=== PATIENT | female | born 1955 | race Caucasian/White ===

== ENCOUNTER → 2020-07-02 13:59 | Outpatient (CLI) | payer MEDICARE, SELFPAY ==
[2020-07-04 05:55] LABS: COVID19 Sendout Not Detected (Not Detect)
== END ==
PROVIDERS: Visit Provider Physician Assistant
DX: Z01.812 Encounter for preprocedural laboratory examination (principal)
CPT/HCPCS: 87635

== ENCOUNTER 2020-07-05 08:23 | Day surgery (SDC) | payer MEDICARE, MEDICAID, SELFPAY ==
[2020-06-15 12:53] VITALS: BMI 41.7
[2020-07-05] VITALS (22 sets, daily range): BP systolic 90–147; BP diastolic 54–82; PULSE 71–99; RESP 12–22; TEMP 36.2–37.4; O2SAT 93–100; BMI 41.7
--- NOTE | 2020-07-05 | DI.RAD.S_ITS ---
PROCEDURE: XR HIP W PEL IF DONE RT 2V INDICATIONS: post op TECHNIQUE: AP pelvis and lateral view of the right hip acquired. COMPARISON: [facility] Outside Film, RG, PELVIS W/LAT HIP RT, 12/10/2019, 18:12. [facility] [place], CR, XR PELVIS WITH LATERAL HIP RIGHT, 02/29/2020, 16:33. FINDINGS: Bones: Patient is status post right hip arthroplasty, with hardware components in expected positions. The hip joint appears congruent. The visualized bony structures appear intact. Round sclerotic focus 1 cm diameter again noted at the inter trochanteric left hip. This has been stable over time. Soft tissues: Overlying postoperative changes are noted. No suspicious soft tissue densities. IMPRESSION: Normal alignment established after right total hip arthroplasty. A 1 cm sclerotic rounded focus is seen within the inter trochanteric line area of the left hip, present without change on the earliest available comparison study that includes that area dated 12/10/19. Dictated by: Venkat Jeffries M.D. on 07/05/2020 at 15:53 Approved by: Venkat Jeffries M.D. on 07/05/2020 at 15:55
--- NOTE | 2020-07-05 06:00 | DI.RAD.S_ITS ---
PROCEDURE: XR PELVIS 1-2V INDICATIONS: inter op TECHNIQUE: Intra-operative view of the pelvis and hip acquired. COMPARISON: None. FINDINGS: Bones: Intraoperative devices prior to placement of arthroplasty prostheses are in expected positions. No fractures or suspicious bony lesions. Soft tissues: Overlying surgical retractors are present, along with other intraoperative changes. IMPRESSION: Intraoperative evaluation in preparation for placement of the final components of right total hip arthroplasty. Normal alignment. Dictated by: Venkat Jeffries M.D. on 07/05/2020 at 12:27 Approved by: Venkat Jeffries M.D. on 07/05/2020 at 12:28
[2020-07-05] MEDS: PREGABALIN 75 MG CAPSULE PO (09:14)
[2020-07-05] MEDS: ACETAMINOPHEN 325 MG TABLET 975 MG PO (09:14)
[2020-07-05] MEDS: MELOXICAM 7.5 MG TABLET 15 MG PO (09:16)
[2020-07-05] MEDS: LACTATED RINGERS 1,000 ML 42 ML IV ×2 (09:18→12:43)
--- NOTE | 2020-07-05 09:22 | SUR.PREOP ---
Pt and daughter brought back to room 5. PO preop meds given as ordered.
--- NOTE | 2020-07-05 09:50 | SUR.PREOP ---
Dr. Escoto examined patient, aware of red rash and scab to left hip. Pt requested to take her own vistaril PO, OK'd by Dr. Escoto. Given w/sip of water.
--- NOTE | 2020-07-05 09:51 | PM.PREOP ---
Pre-operative Note COVID-19 COVID-19 status: Negative Interval Note History & Physical reviewed/Exam performed by Physician: Yes Changes to H&P: No H&P completed within 30 days and has changed as indicated here:: significant problems with her skin, she notes related to antibiotics and cream treatments
[2020-07-05] MEDS: VANCOMYCIN 1,000 MG/200 ML PIGGYBACK 200 MG IV ×2 (09:52→22:58)
--- NOTE | 2020-07-05 09:52 | PM.OP.1 ---
Operative Date/Time/Diagnoses Date of procedure: 07/05/20 Time of procedure: 10:52 Pre-op diagnosis: Severe right hip osteoarthritis Post-op diagnosis: same Procedure & Clinicians Procedure: right total hip arthroplasty posterior approach Same procedure as scheduled: Yes Indications: The patient has had progressively worsening right hip pain with radiographic changes consistent with arthritis. Non-operative management has failed and the patient has requested total hip replacement. The risks, benefits and alternatives to surgery were discussed with the patient prior to proceeding. Risks discussed included, but were not limited to, failure to relieve pain, leg length discrepancy, dislocation, stiffness, infection, nerve damage, deep venous thrombosis, pulmonary embolism, stroke, coma, heart attack, permanent paralysis and , as well as the potential need for eventual revision of the prosthetic. Surgeon: Fatou Escoto Acquisition Professional: Sonny Rizvi Anesthesia Type: General and Spinal Operative Notes Findings: severe right hip osteoarthritis with marked bone softening, adequate stability Closure Type: primary Specimen(s): none sent Prosthetic devices, grafts, tissues, transplants, or devices: Escoto and Nephew size 52 R3, +0 Oxinium 36 mm head, 1 20 mm screw, size 8 standard anthology Estimated Blood Loss (mL): 250 Blood products transfused: none Procedure in detail: The patient was seen in the pre-operative area, where the patient identified the right hip as the operative site and this was marked with my initials. The patient received pre-operative antibiotics and was taken to the operating room and placed on the operative table in the left lateral decubitus position after satisfactory anesthesia. A multimedia services manager out was performed. The right leg was prepared from the ankle to the iliac crest with ChloroPrep in the usual fashion and draped through sterile drapes. The hip was approached through an approximately 20 cm incision centered over the greater trochanter and curving gently posteriorly as it went proximally. This was carried sharply to the fascia kalie, which was divided and retracted with a self retaining retractor. The trochanteric bursa was excised with care being taken to avoid the sciatic nerve, which was identified and protected throughout the case. The short external rotators were incised and the capsulomuscular flap was raised and tagged for later repair. The hip was dislocated, and a femoral neck osteotomy performed approximately 15 mm above the lesser trochanter. Retractors were placed around the femur. The canal was opened with a box cutting osteotome, followed by a T handled reamer and a lateralizing reamer. The chili pepper broach was then used, followed by sequential broaching until there was good stability of the broach in the femur. Retractors were placed to expose the acetabulum. The labrum and central soft tissues were removed. Reaming was performed initially going up in 2 mm increments, then 1 mm increments until good bite was obtained with an odd sized reamer. The cup 1 mm larger than the last reamer was then inserted using the appropriate anteversion guides. It was further stabilized with a single screw. A trial neutral liner was placed. The broach was placed in the canal. A trial head and neck were then placed and the hip relocated and checked for leg length and stability. An intraoperative film confirmed the component position and no evidence of fracture. The patient was stable in the position of sleep, of squatting, and could be put through a range of motion with 45 degrees internal rotation without dislocation. At 90 degrees flexion, internal rotation to 70 was possible before dislocation. This was felt to be satisfactory and the appropriate components were opened, and the trials were removed. The acetabular liner was impacted into position. The final stem was then impacted into the prepared femoral canal. The hip was meticulously irrigated with normal saline. Finally the femoral head was impacted onto the stem. The acetabulum was cleared of all material and the hip relocated one final time. The capsulomuscular flap was then repaired to the greater trochanter though an awl hole using the tag sutures. The short external rotators were repaired with a nonabsorbable suture. A deep drain was placed and brought out anteriorly. The fascia kalie was closed with Vicryl. The subcutaneous layer was closed with barbed sutures and skin agnieszka. A [place] dressing was applied and the patient was taken to recovery having tolerated the procedure well. Complications: none Post-operative Condition: stable Disposition: Acute Care Plan for aftercare: The patient will be maintained on a standard total hip replacement protocol with weight bearing as tolerated and posterior hip precautions. The patient will receive Aspirin and sequential compression devices for DVT prophylaxis. The patient will be discharged home when safe for the home environment.
[2020-07-05] MEDS: hydrOXYzine pamoate 25 MG CAPSULE 50 MG PO (09:59)
[2020-07-05] MEDS: fentaNYL 100 MCG/2 ML INJ 50 MCG IV (10:26)
--- NOTE | 2020-07-05 10:28 | SUR.PREOP ---
Medicated for pain per Dr. Bell. Put on continuous pulse ox prior to administration. Daughter present at patient's side; has call light.
--- NOTE | 2020-07-05 11:17 | SUR.OPER ---
Lateral on padded OR bed. Gel axillary roll. Arms secured on padded armboard with pillow supporting top arm. Padded hip positioner braces x4 - anterior and posterior chest and pelvis. Additional gel pad used anterior pelvis. Gel pad under bottom leg from knee to foot and secured with tape over sheet.
--- NOTE | 2020-07-05 11:19 | SUR.OPER ---
pt presents with a rash covering her whole body surgeon made aware and said she would like to proceed
[2020-07-05] MEDS: SODIUM CHLORIDE IRRIG SOLUTION 250 ML, POVIDONE-IODINE SPONGE STICKS 1 APPLIC IRR (11:30)
[2020-07-05] MEDS: BUPIVACAINE LIPOSOME 266 MG/20 ML VIAL INJ (11:30)
[2020-07-05] MEDS: BUPIVACAINE 0.25% W/ EPI 30 ML VIAL 60 ML INJ (11:30)
--- NOTE | 2020-07-05 14:13 | SUR.PHASEI ---
assumed care for break relief. Pt aroused easily to voice, denies pain/nausea. Juice given. Resp unlabored. VSS
[2020-07-05] MEDS: diphenhydrAMINE 50 MG/ML VIAL 25 MG IV (14:35)
--- NOTE | 2020-07-05 15:00 | SUR.PHASEI ---
1422 To room 225, bed down and locked, call light within reach, SCDs on. Daughter in the room. Pt VSS, requesting juice. Dressing CDI, hemovac and PHILIPPE intact. No further questions from AC RN.
--- NOTE | 2020-07-05 15:02 | SUR.PHASEI ---
1422 Pt has a dry skin crack at the end of her right great toe.
[2020-07-05] MEDS: ACETAMINOPHEN 325 MG TABLET 650 MG PO ×2 (16:24→20:27)
[2020-07-05] MEDS: OXYCODONE IR 5 MG TABLET 10 MG PO ×2 (16:24→20:28)
[2020-07-05] MEDS: IBUPROFEN 400 MG TABLET PO ×2 (16:25→20:29)
[2020-07-05] MEDS: diphenhydrAMINE 25 MG TABLET 50 MG PO ×2 (16:25→20:27)
[2020-07-05] MEDS: LACTATED RINGERS 1,000 ML 125 ML IV (16:27)
[2020-07-05] MEDS: ONDANSETRON 4 MG/2 ML INJ IV ×2 (16:33→20:29)
[2020-07-05] MEDS: prednisoLONE OPHTH SUSP 1 DROPS EYE-BOTH ×2 (16:36→20:29)
--- NOTE | 2020-07-05 17:50 | PT-OP ANOTE ---
Pt not ready for PT yet. Unable to DF or quad set on R leg yet. Check on pt tomorrow in AM.
[2020-07-05] MEDS: hydrOXYzine pamoate 25 MG CAPSULE PO (18:53)
[2020-07-05] MEDS: GABAPENTIN 100 MG CAPSULE PO (20:27)
[2020-07-05] MEDS: FAMOTIDINE 20 MG TABLET 40 MG PO (20:27)
[2020-07-05] MEDS: ASPIRIN EC 81 MG TABLET PO (20:27)
[2020-07-05] MEDS: DOCUSATE 100 MG CAPSULE PO (20:28)
--- NOTE | 2020-07-05 22:02 | PC.NURSE ---
Evening Shift Note- Admit questions done, medications reviewed, physical assessment and skin check completed. Patient oriented to bed and bed controls, room, lights, phone, menu, and call webster/tv remote. Patient complains of pain at 8/10. PRN oxycodone given as ordered. Patient tolerated without issue. No complaints of N/V. Safety measures in place. Patient agrees to call for assistance. bed alarm activated. Call webster and phone within reach. will continue to monitor.
[2020-07-06] MEDS: LACTATED RINGERS 1,000 ML 125 ML IV (00:35)
[2020-07-06] MEDS: diphenhydrAMINE 25 MG TABLET 50 MG PO ×4 (00:35→12:09)
[2020-07-06] MEDS: IBUPROFEN 400 MG TABLET PO ×4 (00:35→12:09)
[2020-07-06 03:00] VITALS: BP 115/66; PULSE 74; RESP 18; TEMP 37.1; O2SAT 97
[2020-07-06] MEDS: hydrOXYzine pamoate 25 MG CAPSULE PO (04:55)
[2020-07-06] MEDS: OXYCODONE IR 5 MG TABLET 10 MG PO ×3 (04:56→14:39)
[2020-07-06 05:53] LABS: Hematocrit 37.1 % (36-46); Hemoglobin 12.2 g/dL (12.0-16.0)
--- NOTE | 2020-07-06 08:04 | PM.PN.1 ---
Subjective Subjective Date Patient Seen: 07/06/20 Time Patient Seen: 08:04 Interval history: She notes that she is doing well overnight. She did get out of bed with therapy. She has minimal pain in her hip is much better than it was preoperatively. She is taking some oxycodone. Exam Vital Signs (past 8 hours): - 07/06/20 03:00 Temperature 98.7 F Pulse Rate 74 Respiratory Rate 18 Blood Pressure 115/66 Pulse Oximetry 97 Oxygen Delivery Method Room Air Oxygen Flow Rate 0 Narrative Exam Narrative: No pain with range of motion in the right hip calfs are soft bilaterally she is neurologically intact in bilateral lower extremities her dressings in tract and dry. She has a luis dressing on. Objective Labs Result Diagrams: 07/06/20 05:25 Labs: Laboratory Results - last 24 hr 07/06/20 05:25 Hgb 12.2 Hct 37.1 Assessment & Plan Assessment & Plan narrative: Doing well status post total hip arthroplasty. Plan mobilize out of bed with physical therapy. She can be discharged to home as long as she ambulates well physical therapy. Will discontinue her drain an I explained that she needs to leave her luis on until her postop follow-up. Quality VTE Deep Vein Thrombosis/Pulmonary Embolism Present on Admission: No
[2020-07-06 08:10] VITALS: BP 143/65; PULSE 73; RESP 18; TEMP 37.4; O2SAT 99
[2020-07-06 08:40] VITALS: PULSE 77; RESP 16; O2SAT 100
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
[2020-07-06] MEDS: ASPIRIN EC 81 MG TABLET PO (09:49)
[2020-07-06] MEDS: LOSARTAN 50 MG TABLET 100 MG PO (09:49)
[2020-07-06] MEDS: predniSONE 10 MG TABLET PO (09:50)
[2020-07-06] MEDS: ACETAMINOPHEN 325 MG TABLET 650 MG PO (09:50)
[2020-07-06] MEDS: DOCUSATE 100 MG CAPSULE PO (09:50)
[2020-07-06] MEDS: prednisoLONE OPHTH SUSP 1 DROPS EYE-BOTH (09:51)
[2020-07-06] MEDS: CHLORTHALIDONE 25 MG TABLET PO (09:51)
[2020-07-06] MEDS: INFLUENZA VACCINE 0.5 ML SYRINGE IM (10:41)
[2020-07-06 12:00] VITALS: BP 112/68; PULSE 78; RESP 18; TEMP 37.2; O2SAT 99
[2020-07-06] MEDS: ONDANSETRON 4 MG ODT PO (12:08)
--- NOTE | 2020-07-06 13:04 | PT.IIE ---
Current Diagnoses Unilateral primary osteoarthritis, right hip (07/05/20) Surgery Performed Operation Date: 07/05/20 10:45 Actual Procedures p Total Hip Arthroplasty(Right) - Fatou Escoto MD Surgical History (Last Updated 06/15/20 @ 13:28 by Brenda Soriano RN) H/O left wrist surgery (Acute ~2016) History of arthroscopy of both knees (Acute) History of hysterectomy (Acute) History of incision and drainage (Acute 2015) Hx of bilateral cataract extraction (Acute) Hx of cholecystectomy (Acute 09/2019) Hx of eye surgery (Acute 07/2019) Hx of tonsillectomy (Acute) S/P coil embolization of cerebral aneurysm (Acute 11/15/12) Medical History (Last Updated 07/05/20 @ 10:17 by Lynsey Hua RN) Anxiety (Acute) Cerebral aneurysm (Acute) Depression (Acute) Fibromyalgia (Acute) History of MRSA infection (Acute 2015) HTN (hypertension) (Acute) Lupus (Acute) Mini stroke (Acute 2018) Panic attacks (Acute) PTSD (post-traumatic stress disorder) (Acute) TIA (transient ischemic attack) (Acute) Physical Therapy Inpatient Evaluation/Re-Eval M1 PT/OT-IP Prior Functional Status Start: 07/05/20 17:01 Freq: NEEDED Status: Active Protocol: Document 07/06/20 11:34 DE (Rec: 07/06/20 13:01 DE [email or web address]) Medical Review Prior Functional Status Medical History Reviewed Yes Diet/Fluid Consistency Regular Communication WNL. No deficits noted. Able to make needs known. Mobility and Gait Pt amb mod I with 4WW at baseline but hobbles, leans, and limps. Pt has limited community amb d/t hip pain and decreased activity tolerance. Activities of Daily Living and IADL's Pt's daughter, who lives with pt, helps her with most ADLs such as dressing and getting in and out of shower. Prior Functional Level (Other details) Pt has hx of 3 falls within the past 6 months. Pt reports she has difficulty with descending control during stand to sit transfer. Social History Household Members children Living Arrangements House Number of Floors (Floors) Two Floors Number of Stairs To Enter/Railing? 5 [place] in the front with B railing. 3 [place] in the back with L railing up. Pt prefers to go in through the front entrance. Pt will live on the 1st floor only. Home Environment Standard Height Toilet,Tub/ Shower Home Equipment Four Wheel Walker Employment Status Unemployed Additional Social History Comment Pt lives with her daughter and son-in-law. Pt's daughter is looking into buying a shower chair and her TEDDY is going to put a grab bar near toilet and shower next week. M2 PT-IP Current Condition Start: 07/05/20 17:01 Freq: NEEDED Status: Active Protocol: Document 07/06/20 11:34 DE (Rec: 07/06/20 13:01 DE [email or web address]) Physical Therapy Current Condition Current Condition Evaluation Date 07/06/20 Treatment Diagnosis R SCOT (posterior approach); Difficulty with amb Onset Date 07/05/20 Precautions Posterior Hip Precautions No Hip Flexion > 90 degrees,No Hip Internal Rotation,No Hip Adduction Weight Bearing Status Weight Bearing Status Weight Bear as Tolerated M3 PT-IP Subjective Start: 07/05/20 17:01 Freq: NEEDED Status: Active Protocol: Document 07/06/20 11:34 DE (Rec: 07/06/20 13:01 DE [email or web address]) Subjective Physical Therapy Visit Type Type Initial Evaluation Visit Start Time 09:55 Visit Stop Time 10:32 Total Visit Minutes 37 Notes SPT Zion co-ha and supervised by PT Surya the entire session. Number of FEEDLOT MANAGER Visits 0 Physical Therapy Visit Comments Patient Comments I am doing pretty good. Patient Goals To return home. Therapy Pain Assessment Pain When Pain Assessed During Weight Bearing Pain Present Pain Present Pain Reported Location right hip Intensity 7 Scale Used Frank-Mcneal (Faces) Description Aching,Acute Pain Behaviors Calling Out,Facial Grimacing, Guarding,Moaning,Wincing Pain Management Techniques Timing of Activity with Medications M4 PT-IP Mobility and Gait Start: 07/05/20 17:01 Freq: NEEDED Status: Active Protocol: Document 07/06/20 11:34 DE (Rec: 07/06/20 13:01 DE [email or web address]) PT-Transfer Assessment Sit to and From Stand Sit to and from Stand Minimal Assistance,1 Person Assistance,Use of Upper Extremities Equipment Transfer Assistive Device Gait Belt,Front Wheeled Walker Orthotic/Prosthetic Devices or Brace: No Transfers Transfer Destination Chair Transfer Technique Stand Step Pivot Transfer Ability Level of Assist Minimal Assistance,1 Person Assistance,Use of Upper Extremities Comments Mobility Comments Pt was sitting in the chair as PT and SPT arrived. Pt performed sit to stand with FWW and min 1PA. Pt stood up very slowly d/t increased pain in the R hip. Pt demonstrated difficulty with WB through her RLE, which improved as pt walked. Pt amb ~80 feet 1P CGA with 3-point step-to gait pattern with use of FWW. Pt demonstrated decreased stride length and decreased gait speed progressively d/t increased pain. Pt also hyperventilated during amb but was okay after breathing instructions. After amb ~80 feet, pt wanted to sit down d/ t fatigue. Pt sat down on w/c with min 1PA and use of BUE on armrests. With the verbal instructions to control descent, pt was able to have good eccentric control. Pt was wheeled to the stairs. Pt performed stair climbing up and down 3 steps x2 with min 1PA and use of B railing. Pt was instructed to go up leading with the LLE and go down leading with the RLE. Pt c/o significant hip pain and buckled when she was turning around and needed ADMISSIONS GATE ATTENDANT for support. Pt was instructed to take smaller steps in order to prevent internal rotation at the hip. Pt was then wheeled back to the room and transfered to the chair with min 1PA and use of BUE. Call light was placed within reach. Gait Assessment Gait Gait Assistance Required: Contact Guard Assist,1 Person Assist Distance (Feet) 80 Able to Maintain Weight Bearing Status Yes During Gait Assistive Devices Assistive Device Gait Belt,Front Wheeled Walker Gait Deviations General Gait Pattern Antalgic,Decreased Stride Length,Step-to Gait Factors Limiting Gait Function Factors Limiting Gait Function Decreased Activity Tolerance, Decreased Strength,Limited Range of Motion,Pain,Poor Balance,Poor Safety Awareness, Respiratory Distress Comments Gait Comments See mobility comments. Stair Climbing Assessment Evaluation Level of Assist On Stairs Minimal Assistance,1 Person Assistance Devices Stair Climbing Assistive Devices None,Left Railing,Right Railing Technique/Endurance Stair Climbing Direction Ascend and Descend Stair Climbing Technique Step to Step Number of Steps Climbed 3 Query Text: Stair Climbing Set # Repetitions (reps) 2 Comments Stair Climbing Comments See mobility comments. PT-Balance Assessment Sitting Balance and Reactions Static Sitting Balance Ability Normal Dynamic Sitting Balance Ability Normal Standing Balance and Reactions Static Standing Balance Ability Normal Dynamic Standing Balance Ability Good Device Used FWW M5 PT-IP Objective Assessments Start: 07/05/20 17:01 Freq: NEEDED Status: Active Protocol: Document 07/06/20 11:34 DE (Rec: 07/06/20 13:01 DE [email or web address]) Orientation Orientation/Cognition Level of Alertness Alert Orientation Name,Age,Birthday,Month,Date, Year,Day of Week,Place, Situation Language Function Ability No Deficits Noted Safety Awareness Decreased Safety Awareness Memory Description No Deficits Noted Gross Range of Motion Upper Extremity ROM Assessment Within Functional Limits Lower Extremity ROM Assessment Right Impaired Strength Upper Extremity Strength Assessment Within Functional Limits Lower Extremity Strength Assessment Right Impaired Hip 3/5 Knee 4/5 Coordination Assessment Gross Coordination Gross Coordination WNL Sensation Assessment Sensation Gross Sensation WNL Muscle Tone Muscle Tone WNL Yes M6 PT-IP Treatment Start: 07/05/20 17:01 Freq: NEEDED Status: Active Protocol: Document 07/06/20 11:34 DE (Rec: 07/06/20 13:01 DE [email or web address]) Physical Therapy Treatment Exercises Exercises Ankle Pumps,Gluteal Sets,Quad Sets,Heel Slides Education Education Provided Precautions,Weight Bearing Status,Post-Op Packet,Safety M7 PT-IP Assessment and Plan Start: 07/05/20 17:01 Freq: NEEDED Status: Active Protocol: Document 07/06/20 11:34 DE (Rec: 07/06/20 13:01 DE [email or web address]) PT Summary Assessment and Plan Potential Rehabilitation Potential Excellent Status of Condition at Evaluation Stable Summary Impairments Pain,ROM,Strength,Balance,Bed Mobility,Transfers,Gait, Activity Tolerance Assessment Summary This is a low complexity evaluation for 64 yo female s/ p POD1 R SCOT (posterior approach). PLOF= modified independent for household amb with 4WW but limited community amb. Pt needs min assistance from her daughter for most ADLs including dressing and getting in and out of shower. CLOF= pt is able to perform sit<>stand transfer with min 1PA and use of BUE. Pt is also able to amb ~80 ft 1P CGA and FWW but limited distance and speed d/t increased pain and decreased activity tolerance. Pt is also able to perform stair climbing up and down 3 steps x2 with min 1PA and B railing. She did buckle on RLE while turning and needed review of instruction after for avoiding hip IR. Pt's BP in sitting before mobilization was 133/75 and after mobilization was 145/94. Overall, pt laure session well and will be ready for d/c home after PM CG training session with her daughter, along with outpatient PT. Goals Bed Mobility Goal Contact Guard Assistance Transfer Goal Contact Guard Assistance,Front Wheeled Walker,Four Wheeled Walker Gait Goal Contact Guard Assistance,Front Wheel Walker,Four Wheel Walker Gait Distance 100 Other Goals stair climb with B rails with dtr Frequency of Treatment Frequency Of Treatment Twice a Day Treatment Plan Physical Therapy Treatment Plan Bed Mobility Training,Transfer Training,Gait Training, Therapeutic Exercise,Balance Retraining,Post Op Education, Discharge Planning,Hot or Cold Pack,Neuromuscular Re-ed Other Recommendations and Next Treatment review precautions (turns, hip Focus IR) stair climbing mobility with FWW/ 4WW Recommendations To Nursing Amount of Assist Needed 1 Person Assist Discharge Recommendations PT Discharge Recommendations Home with Assistance, Outpatient PT Equipment Needed for Home Before FWW if pt doesnt have it. Discharge family will acquire shower chair, grab bars. Transportation Needs at Discharge Private Vehicle This noted is written by NICO Brown and reviewed and approved by Cristóbal Alexander, PT
--- NOTE | 2020-07-06 15:57 | PT.IPTN ---
Current Diagnoses Unilateral primary osteoarthritis, right hip (07/05/20) Surgery Performed Operation Date: 07/05/20 10:45 Actual Procedures p Total Hip Arthroplasty(Right) - Fatou Escoto MD Physical Therapy Treatment Note M2 PT-IP Current Condition Start: 07/05/20 17:01 Freq: NEEDED Status: Discharge Protocol: Document 07/06/20 11:34 DE (Rec: 07/06/20 13:01 DE [email or web address]) Physical Therapy Current Condition Current Condition Evaluation Date 07/06/20 Treatment Diagnosis R SCOT (posterior approach); Difficulty with amb Onset Date 07/05/20 Precautions Posterior Hip Precautions No Hip Flexion > 90 degrees,No Hip Internal Rotation,No Hip Adduction Weight Bearing Status Weight Bearing Status Weight Bear as Tolerated M3 PT-IP Subjective Start: 07/05/20 17:01 Freq: NEEDED Status: Discharge Protocol: Document 07/06/20 14:56 DE (Rec: 07/06/20 15:56 DE [id number]) Subjective Physical Therapy Visit Type Type Treatment Note Visit Start Time 13:56 Visit Stop Time 14:20 Total Visit Minutes 24 Notes SPT Zion co-tx and supervised by PT Surya. Pt's daughter was present throughout the entire session. Number of MORTARMAN Visits 0 Physical Therapy Visit Comments Patient Comments I want to go home. Patient Goals To return home. Therapy Pain Assessment Pain When Pain Assessed During Weight Bearing Pain Present Pain Present Pain Reported Location right hip Intensity 6 Scale Used Frank-Mcneal (Faces) Description Aching,Acute Pain Behaviors Calling Out,Facial Grimacing, Guarding,Moaning,Wincing Pain Management Techniques Timing of Activity with Medications M4 PT-IP Mobility and Gait Start: 07/05/20 17:01 Freq: NEEDED Status: Discharge Protocol: Document 07/06/20 14:56 DE (Rec: 07/06/20 15:56 DE [id number]) PT-Transfer Assessment Sit to and From Stand Sit to and from Stand Contact Guard Assistance,1 Person Assistance,Use of Upper Extremities Equipment Transfer Assistive Device Gait Belt,Front Wheeled Walker Orthotic/Prosthetic Devices or Brace: No Transfers Transfer Destination Chair Transfer Technique Stand Step Pivot Transfer Ability Level of Assist Contact Guard Assistance,1 Person Assistance,Use of Upper Extremities Comments Mobility Comments Pt was sitting in the chair as PT and SPT arrived. Pt's daughter was also present in the room. Pt performed sit to stand with FWW and CGA. Pt had unequal WB with the majority of the weight through her LLE. Pt amb ~65 ft 1P CGA with step-through gait pattern with use of FWW. Although her gait speed slightly improved from the AM session, pt still had decreased gait speed as well as decreased stride length. After walking ~65 ft, pt was instructed to sit down in w/c and was wheeled to the stairs in order to conserve energy for stair climbing and safe d/ c home. Once pt arrived to the stairs, she stood up from w/c and performed stair climbing up and down 3 steps x2 with min 1PA and B railing. Pt performed the first set with assistance from therapist for demonstration purpose for her daughter. Pt then performed the second set with assistance from her daughter. Caregiver education was provided to lead with L to ascend and lead with R to descend. Pt's daughter was also instructed to support pt's hand with one hand and hold gait belt with the other hand. Pt's daughter was also educated about the potential of knee buckling as well as the posterior hip precautions. After stair climbing, pt was wheeled back to the room and was left in the w/c for d/c with her daughter. Gait Assessment Gait Gait Assistance Required: Contact Guard Assist,1 Person Assist Distance (Feet) 80 Able to Maintain Weight Bearing Status Yes During Gait Assistive Devices Assistive Device Gait Belt,Front Wheeled Walker Gait Deviations General Gait Pattern Antalgic,Decreased Stride Length,Step-to Gait Factors Limiting Gait Function Factors Limiting Gait Function Decreased Activity Tolerance, Decreased Strength,Limited Range of Motion,Pain,Poor Balance,Poor Safety Awareness, Respiratory Distress Comments Gait Comments See mobility comments. Stair Climbing Assessment Evaluation Level of Assist On Stairs Minimal Assistance,1 Person Assistance Devices Stair Climbing Assistive Devices None,Left Railing,Right Railing Technique/Endurance Stair Climbing Direction Ascend and Descend Stair Climbing Technique Step to Step Number of Steps Climbed 3 Stair Climbing Set # Repetitions (reps) 2 Comments Stair Climbing Comments See mobility comments. PT-Balance Assessment Sitting Balance and Reactions Static Sitting Balance Ability Normal Dynamic Sitting Balance Ability Normal Standing Balance and Reactions Static Standing Balance Ability Normal Dynamic Standing Balance Ability Good Device Used FWW M5 PT-IP Objective Assessments Start: 07/05/20 17:01 Freq: NEEDED Status: Discharge Protocol: Document 07/06/20 11:34 DE (Rec: 07/06/20 13:01 DE [email or web address]) Orientation Orientation/Cognition Level of Alertness Alert Orientation Name,Age,Birthday,Month,Date, Year,Day of Week,Place, Situation Language Function Ability No Deficits Noted Safety Awareness Decreased Safety Awareness Memory Description No Deficits Noted Gross Range of Motion Upper Extremity ROM Assessment Within Functional Limits Lower Extremity ROM Assessment Right Impaired Strength Upper Extremity Strength Assessment Within Functional Limits Lower Extremity Strength Assessment Right Impaired Hip 3/5 Knee 4/5 Coordination Assessment Gross Coordination Gross Coordination WNL Sensation Assessment Sensation Gross Sensation WNL Muscle Tone Muscle Tone WNL Yes M6 PT-IP Treatment Start: 07/05/20 17:01 Freq: NEEDED Status: Discharge Protocol: Document 07/06/20 11:34 DE (Rec: 07/06/20 13:01 DE [email or web address]) Physical Therapy Treatment Exercises Exercises Ankle Pumps,Gluteal Sets,Quad Sets,Heel Slides Education Education Provided Precautions,Weight Bearing Status,Post-Op Packet,Safety M7 PT-IP Assessment and Plan Start: 07/05/20 17:01 Freq: NEEDED Status: Discharge Protocol: Document 07/06/20 14:56 DE (Rec: 07/06/20 15:56 DE [id number]) PT Summary Assessment and Plan Potential Rehabilitation Potential Excellent Status of Condition at Evaluation Stable Summary Impairments Pain,ROM,Strength,Balance,Bed Mobility,Transfers,Gait, Activity Tolerance Progress Towards Goals Safe For Discharge Assessment Summary Both pt and pt's daughter responded well to the treatment. Pt was able to perform sit <> stand with CGA and FWW. Pt demonstrated significantly unequal WB during sit to stand and standing. Pt was able to amb ~ 65 ft with CGA and FWW with improvement from the AM session in activity tolerance and gait speed. Pt did not request to sit down but was instructed by therapist in order to conserve energy for stair climbing and d/c. Caregiver training with verbal instruction and visual demonstration was provided to pt's daughter for stair climbing. pt's daughter demonstrated understanding of the instructions and techniques. Pt asked about walking outside at home but was instructed to walk on firm , flat surface for now and slowly progress towards soft, uneven surface. Pt is safe to d/c home with FWW and caregiver assistance. Pt will benefit from outpatient PT to improve her L hip strength and mobility as well as balance in order to be more functionally independent and reduce risk for falls. Goals Bed Mobility Goal Contact Guard Assistance Transfer Goal Contact Guard Assistance,Front Wheeled Walker,Four Wheeled Walker Gait Goal Contact Guard Assistance,Front Wheel Walker,Four Wheel Walker Gait Distance 100 Other Goals stair climb with B rails with dtr Frequency of Treatment Frequency Of Treatment Twice a Day Treatment Plan Physical Therapy Treatment Plan Bed Mobility Training,Transfer Training,Gait Training, Therapeutic Exercise,Balance Retraining,Post Op Education, Discharge Planning,Hot or Cold Pack,Neuromuscular Re-ed Other Recommendations and Next Treatment review precautions (turns, hip Focus IR) stair climbing mobility with FWW/ 4WW Recommendations To Nursing Amount of Assist Needed 1 Person Assist Discharge Recommendations PT Discharge Recommendations Home with Assistance, Outpatient PT Other Discharge Recommendations Pt was recommended to use FWW instead of 4WW at home for better stability. Equipment Needed for Home Before Pt reports she has FWW at home Discharge as well. family will acquire shower chair, grab bars. Transportation Needs at Discharge Private Vehicle
== END 2020-07-06 14:46 | disposition home or self-care (01) ==
LOC: OR 08:29 → AC 08:30
PROVIDERS: Referring Provider Orthopaedic Surgery; Visit Provider Orthopaedic Surgery
PROC: 0SR90JZ Replacement of Right Hip Joint with Synthetic Substitute, Open Approach (ICD-10-PCS; CPT 27130; principal; 2020-07-05 10:45)
DX: M16.11 Unilateral primary osteoarthritis, right hip (principal); F41.9 Anxiety disorder, unspecified; F32.9 Major depressive disorder, single episode, unspecified; I10 Essential (primary) hypertension; Z86.73 Personal history of transient ischemic attack (TIA), and cerebral infarction without residual deficits
CPT/HCPCS: 27130; 36415; 72170; 73502; 85014; 85018; 90471; 90656; 94760; 94762; 97116; 97161; 97530; C1776; A9270; C9290; J1100; J1200; J2250; J2274; J2405; J2704; J3010; Q2038

== ENCOUNTER 2020-08-09 14:21 | Inpatient (IN) | payer MEDICARE, MEDICAID, SELFPAY ==
[2020-07-05 15:54] VITALS: BMI 41.7
[2020-08-09] VITALS (10 sets, daily range): BP systolic 124–160; BP diastolic 59–104; PULSE 82–94; RESP 24; TEMP 36.6–38.1; O2SAT 95–100; BMI 39.6
[2020-08-09 14:59] LABS: Add Manual Diff / Slide Review NO; Basophils Absolute Auto 0 /uL (0-100); Basophils Percent Auto 0.3 % (0-2); Eosinophils Absolute Auto 300 /uL (0-450); Hematocrit 40.7 % (36-46); Hemoglobin 13.7 g/dL (12.0-16.0); Lymphocytes Absolute Auto 3000 /uL (1100-4500); Mean Corpuscular HGB Conc 33.7 % (30-36); Mean Corpuscular Hemoglobin 27.8 PG (26-34); Mean Corpuscular Volume 82.6 fL (80-100); Monocytes Absolute Auto 2100 /uL (0-900); Monocytes Percent Auto 13.3 % (3-14); Neutrophils Absolute Auto 10300 /uL (1500-7000); Neutrophils Percent Auto 65.4 % (50-75); Platelet Count 217 X10^3/uL (150-400); Red Blood Cell Count 4.93 X10^6/uL (4.0-5.2); Red Cell Distribution Width 13.3 % (11.6-14.8); White Blood Cell Count 15.7 X10^3/uL (4.5-11.0)
--- NOTE | 2020-08-09 15:03 | ED_ITS ---
HPI - General Adult General Chief complaint: Nausea/Vomiting/Diarrhea Stated complaint: UNABLE TO EAT NOT ABLE TO KEEP THINGS DOWN Time Seen by Provider: 08/09/20 14:45 Source: patient Mode of arrival: Ambulatory Limitations: no limitations History of Present Illness HPI narrative: 65-year-old female who 1 month ago underwent a right total hip arthroplasty who over the past several days/weeks has had increase in fatigue and weakness and malaise and body aches and chills. She was tested for COVID-19 and it was negative. Saw her orthopedic surgeon yesterday had the agnieszka removed from her right hip and was concerned for an infection. I received a call from her orthopedic surgeon earlier today stating that she was directing the patient come to the emergency department and requesting x-ray and labs to evaluate for other potential sources of an infection as there was concern about a potential periprosthetic infection. Upon arrival patient states she generally does not feel very well. Has had nausea no vomiting. No change of bowel habits. Does have some dysuria with dark colored urine. Does report fevers at home. No chest pain or shortness of breath. Related Data Home Medications Medication Instructions Recorded Confirmed albuterol sulfate 2 puff INHALATION Q4-6H PRN 06/15/20 07/05/20 chlorthalidone 25 mg PO DAILY 06/15/20 07/05/20 famotidine 40 mg PO BEDTIME 06/15/20 07/05/20 gabapentin 100 mg PO BEDTIME PRN 06/15/20 07/05/20 hydroxyzine HCl 50 mg PO TID PRN 06/15/20 07/05/20 ibuprofen 400 mg PO QID PRN 06/15/20 07/05/20 losartan 100 mg PO DAILY 06/15/20 07/05/20 prednisolone acetate 1 drp EYE-BOTH TID 06/15/20 07/05/20 prednisone 10 mg PO DAILY 06/15/20 07/05/20 diphenhydramine HCl 50 mg PO QID PRN 07/05/20 07/05/20 Previous Rx's Medication Instructions Recorded acetaminophen 650 mg PO TID #20 tab 07/06/20 aspirin 81 mg PO BID #30 tab 07/06/20 docusate sodium [DOK] 100 mg PO BID #30 cap 07/06/20 oxycodone 5 mg PO Q4-6H PRN #40 tab 07/06/20 Allergies Allergy/AdvReac Type Severity Reaction Status Date / Time Every antibiotic except Allergy Severe Lips turn Uncoded 07/05/20 09:28 Vancomycin blue/swell, I can't breathe, long-term rash Review of Systems Constitutional Constitutional: Reports body ache(s), Reports chills, Reports fatigue, Reports fever(s), Reports lethargy and Reports malaise Cardiovascular Cardiovascular: Denies chest pain and Denies dyspnea Respiratory Respiratory: Denies dyspnea Gastrointestinal Gastrointestinal: Denies change in bowel habits, Reports nausea and Denies vomiting Genitourinary Genitourinary: Reports dysuria Genitourinary: Reports dysuria Comments: Dark colored urine Musculoskeletal Musculoskeletal: Denies arthralgias and Denies myalgias Integumentary/Breasts Skin/Breast: Denies rash Neurologic Neurologic: Denies behavioral changes Psychiatric Psychiatric: Denies behavioral changes Endocrine Endocrine: Reports fatigue Hematologic/Lymphatic Hematologic/Lymphatic: Denies easy bleeding and Denies easy bruising Allergic/Immunologic Allergic/Immunologic: Denies urticaria Patient History Medical History Anxiety Cerebral aneurysm Depression Fibromyalgia History of MRSA infection (2015) HTN (hypertension) Lupus Mini stroke (2017) Panic attacks PTSD (post-traumatic stress disorder) TIA (transient ischemic attack) Surgical History (Updated 06/15/20 @ 13:28 by Brenda Soriano RN) H/O left wrist surgery (~2015) History of arthroscopy of both knees History of hysterectomy History of incision and drainage (2015) Hx of bilateral cataract extraction Hx of cholecystectomy (09/2019) Hx of eye surgery (07/2019) Hx of tonsillectomy S/P coil embolization of cerebral aneurysm (11/15/12) Social History household members: children Smoking Status: Former smoker alcohol intake: current Smoking Status: Former smoker alcohol intake frequency: a few times a month Substance Use Type: does not use Exam Initial Vital Signs Initial Vital Signs: Vital Signs Pulse Rate 91 H 08/09/20 15:04 Pulse Oximetry 98 08/09/20 15:04 Const General: ill appearing Limitations: mental status not altered HENMT Head: normal to inspection and normocephalic Resp Effort & Inspection: normal respiratory effort Auscultation: clear to auscultation bilaterally Cardio Rate: regular rate Rhythm: regular rhythm GI Inspection: non-distended Palpation: soft Skin Other: Well-healed surgical scar right hip Neuro General: patient alert, patient awake and patient oriented x3 Cognition: normal cognition Speech: speech normal Extrem General: normal to inspection and capillary refill normal Psych Appearance: grossly normal and well kempt Scores GCS [place] coma scale eye opening: Spontaneous Omega coma scale verbal response: Orientated Omega coma scale motor response: Obey commands [place] coma scale total score: 15 Course Orders Ordered: ED Orders 08/09/20 14:42 C-Reactive Protein Quant Stat Complete Blood Count AUTO DIFF Stat Comprehensive Metabolic Panel Stat Erythrocyte Sedimentation Rate Stat Lactate (Lactic Acid) Stat Lipase Stat Procalcitonin Stat 08/09/20 15:01 XR hip w pel if done RT 2V Stat 08/09/20 15:42 Blood Culture Stat 08/09/20 16:21 COVID19 Stat 08/09/20 16:23 Consult to Orthopedic Surgery Stat 08/09/20 17:14 Body Fluid Culture Stat Sodium Chloride (Normal Saline 0.9%) 1,000 mls @ 125 mls/hr IV CONT GIBRAN Last Infusion: 08/09/20 16:57 Dose: 1,000 mls/hr Documented by: Admin: 08/09/20 15:29 Dose: 125 mls/hr Documented by: MAGED Discontinued Medications Acetaminophen (Acetaminophen 325 Mg Tablet) 650 mg PO NOW ONE Stop: 08/09/20 15:02 Last Admin: 08/09/20 15:28 Dose: 650 mg Documented by: MAGED Vancomycin HCl (Vancomycin) 1,000 mg in 200 mls @ 200 mls/hr IV NOW ONE Stop: 08/09/20 16:09 Last Infusion: 08/09/20 16:58 Dose: 0 mls/hr Documented by: Admin: 08/09/20 15:29 Dose: 200 mls/hr Documented by: MAGED Ondansetron HCl (Ondansetron 4 Mg/2 Ml Inj) 4 mg IV NOW ONE Stop: 08/09/20 15:02 Last Admin: 08/09/20 15:28 Dose: 4 mg Documented by: MAGED Vital Signs Vital signs: Vital Signs - 8 hr 08/09/20 15:04 08/09/20 15:30 08/09/20 15:44 Temperature 97.9 F Pulse Rate 91 H 94 H Blood Pressure 160/104 H Pulse Oximetry 98 96 08/09/20 16:00 08/09/20 16:30 08/09/20 16:36 Temperature Pulse Rate 92 H 87 89 Blood Pressure 126/60 Pulse Oximetry 96 95 96 08/09/20 17:00 Temperature Pulse Rate 86 Blood Pressure 124/59 L Pulse Oximetry 96 Medical Decision Making Medical Records Medical records reviewed: Yes I reviewed the patient's medical records. Lab Data Lab results reviewed: Yes I reviewed the patient's lab results. Result diagrams: 08/09/20 14:42 08/09/20 14:42 Labs: Lab Results 08/09/20 08/09/20 08/09/20 Range/Units 14:42 14:42 14:42 WBC 15.7 H (4.5-11.0) X10^3/uL RBC 4.93 (4.0-5.2) X10^6/uL Hgb 13.7 (12.0-16.0) g/dL Hct 40.7 (36-46) % MCV 82.6 (80-100) fL MCH 27.8 (26-34) PG MCHC 33.7 (30-36) % RDW 13.3 (11.6-14.8) % Plt Count 217 (150-400) X10^3/uL Neut % (Auto) 65.4 (50-75) % Lymph % (Auto) 19.0 L (25-40) % [place] % (Auto) 13.3 (3-14) % Eos % (Auto) 2.0 (2-4) % Baso % (Auto) 0.3 (0-2) % Neut # (Auto) 05876 H (5291-4940) /uL Lymph # (Auto) 3000 (0471-3618) /uL [place] # (Auto) 2100 H (0-900) /uL Eos # (Auto) 300 (0-450) /uL Baso # (Auto) 0 (0-100) /uL ESR 26 H (0-20) MM/HR Sodium 134 L (137-145) mmol/L Potassium 3.4 (3.4-5.1) mmol/L Chloride 102 (98-107) mmol/L Carbon Dioxide 28 (22-32) mmol/L BUN 14 (7-17) mg/dL Creatinine 0.84 (0.52-1.04) mg/dL Estimated GFR > 60.0 (>60) mL/min BUN/Creatinine Ratio 16.7 (6-22) Glucose 118 H (80-110) mg/dL Lactate (0.7-2.1) mmol/L Calcium 9.3 (8.4-10.2) mg/dL Total Bilirubin 1.1 (0.2-1.3) mg/dL AST 26 (14-36) IU/L ALT 14 (<35) IU/L Alkaline Phosphatase 96 (38-126) U/L C-Reactive Protein 4.6 H (<1.0) mg/dL Total Protein 8.1 (6.3-8.2) g/dL Albumin 3.8 (3.5-5.0) g/dL Globulin 4.3 H (1.7-4.1) g/dL Albumin/Globulin Ratio 0.9 L (1.0-2.8) Lipase 152 (23-300) U/L Procalcitonin 0.07 (<0.5) ng/mL COVID-19 PCR (Negative) 08/09/20 08/09/20 Range/Units 14:42 16:21 WBC (4.5-11.0) X10^3/uL RBC (4.0-5.2) X10^6/uL Hgb (12.0-16.0) g/dL Hct (36-46) % MCV (80-100) fL MCH (26-34) PG MCHC (30-36) % RDW (11.6-14.8) % Plt Count (150-400) X10^3/uL Neut % (Auto) (50-75) % Lymph % (Auto) (25-40) % [place] % (Auto) (3-14) % Eos % (Auto) (2-4) % Baso % (Auto) (0-2) % Neut # (Auto) (2035-8835) /uL Lymph # (Auto) (4038-4553) /uL [place] # (Auto) (0-900) /uL Eos # (Auto) (0-450) /uL Baso # (Auto) (0-100) /uL ESR (0-20) MM/HR Sodium (137-145) mmol/L Potassium (3.4-5.1) mmol/L Chloride (98-107) mmol/L Carbon Dioxide (22-32) mmol/L BUN (7-17) mg/dL Creatinine (0.52-1.04) mg/dL Estimated GFR (>60) mL/min BUN/Creatinine Ratio (6-22) Glucose (80-110) mg/dL Lactate 1.4 (0.7-2.1) mmol/L Calcium (8.4-10.2) mg/dL Total Bilirubin (0.2-1.3) mg/dL AST (14-36) IU/L ALT (<35) IU/L Alkaline Phosphatase (38-126) U/L C-Reactive Protein (<1.0) mg/dL Total Protein (6.3-8.2) g/dL Albumin (3.5-5.0) g/dL Globulin (1.7-4.1) g/dL Albumin/Globulin Ratio (1.0-2.8) Lipase (23-300) U/L Procalcitonin (<0.5) ng/mL COVID-19 PCR Negative (Negative) Imaging Data Extremity x-ray #1: Radiologist's Impression: [address] [id number] ReportSigned Patient: Fany Swartz [facility]#: [id number]: 5Acct:[id number]/Sex: 65 / FDate of Service: 08/09/20Loc: EDAccession Number: [id number] Procedure: XR hip w pel if done RT 2V Ordering Provider: Chance Perez D.O. PROCEDURE: XR HIP W PEL IF DONE RT 2V INDICATIONS: requested by ortho concern for infection TECHNIQUE: AP pelvis with lateral view(s) of the right hip(s). [facility], 07/[facility]/2020, 13:01. FINDINGS: Bones: No fractures or dislocations. Pelvic ring appears intact. No matthias picious bony lesions. Prior right total hip arthroplasty Soft tissues: The visualized bowel gas pattern is normal. No suspicious soft tissue calcifications. IMPRESSION: No evidence of device loosening or disruption, no sign of infection involving the arthroplasty. Dictated by: Venkat Jeffries M.D. on 08/09/2020 at 15:30 Approved by: Venkat Jeffries M.D. on 08/09/2020 at 15:31 [facility] Narrative Medical decision making narrative: Patient does have a leukocytosis and also an elevated ESR and CRP. The x-ray shows no acute issues with regard to the prosthesis. I did discuss the case with Dr. Escoto with orthopedics who recommended the patient be admitted. Patient has had multiple issues with antibiotics in the past so she was given vancomycin here in the ER. I also discussed the case with Dr. cordoba who will admit for further evaluation and treatment. We are still waiting for a urinalysis at the time of admission. Cultures have been obtained. Discussed admission with the patient. She expressed understanding and agreement. Discharge Plan Departure Patient Disposition: Admitted As Inpatient Clinical Impression: Post-operative infection Qualifiers: Encounter type: initial encounter Postoperative infection type: unspecified type Qualified Code(s): T81.40XA - Infection following a procedure, unspecified, initial encounter Admit Date/Time: 08/09/20 17:25 Admit Provider: Tammy Cordoba
[2020-08-09 15:13] LABS: Lactate (Lactic Acid) 1.4 mmol/L (0.7-2.1)
[2020-08-09 15:15] LABS: Alanine Aminotransferase 14 IU/L (<35); Albumin 3.8 g/dL (3.5-5.0); Albumin Globulin Ratio 0.9 (1.0-2.8); Alkaline Phosphatase 96 U/L (38-126); Aspartate Aminotransferase 26 IU/L (14-36); BUN Creatinine Ratio 16.7 (6-22); Bilirubin Total 1.1 mg/dL (0.2-1.3); Blood Urea Nitrogen 14 mg/dL (7-17); C-Reactive Protein Quant 4.6 mg/dL (<1.0); Calcium 9.3 mg/dL (8.4-10.2); Carbon Dioxide 28 mmol/L (22-32); Chloride 102 mmol/L (98-107); Estimated Glomerular Filt Rate > 60.0 mL/min (>60); Globulin 4.3 g/dL (1.7-4.1); Glucose 118 mg/dL (80-110); HEMOLYSIS < 15 (0-50); Lipase 152 U/L (23-300); Potassium 3.4 mmol/L (3.4-5.1); Sodium 134 mmol/L (137-145); Total Protein 8.1 g/dL (6.3-8.2)
[2020-08-09 15:23] LABS: Erythrocyte Sedimentation Rate 26 MM/HR (0-20)
[2020-08-09] MEDS: ACETAMINOPHEN 325 MG TABLET 650 MG PO ×2 (15:28→21:16)
[2020-08-09] MEDS: ONDANSETRON 4 MG/2 ML INJ IV ×2 (15:28→20:18)
[2020-08-09] MEDS: VANCOMYCIN 1,000 MG/200 ML PIGGYBACK 200 MG IV (15:29)
[2020-08-09] MEDS: SODIUM CHLORIDE 0.9% 1,000 ML 125 ML IV (15:29)
[2020-08-09 15:35] LABS: Procalcitonin 0.07 ng/mL (<0.5)
[2020-08-09 16:43] LABS: COVID19 -Nasal RAPID Negative (Negative)
--- NOTE | 2020-08-09 16:57 | PC.NURSE ---
Per doctor Perez, fluids increased to 1,000 ml/hr.
--- NOTE | 2020-08-09 19:05 | P.HP_ITS ---
History of Present Illness History of Present Illness Date Patient Seen: 08/09/20 Time Patient Seen: 18:06 Chief complaint: UNABLE TO EAT NOT ABLE TO KEEP THINGS DOWN Narrative: This is a complex 65-year-old who had a right total hip arthroplasty done back 07/05/2020. She was seen for 1 postoperative appointment and was having some thigh pain. A CT scan was obtained which did not show evidence of a right femoral fracture. She then was unable to keep her clinic appointments because she was not feeling well with some problems with nausea and vomiting. She has also had some issues with fevers. She was sent for COVID testing which was negative. She also was evaluated at [facility] and said she had difficulty getting care because of the COVID crisis. She was seen yesterday for staple removal and she was noting to have continued problems with nausea vomiting and keeping things down. She was contacted today in because she was having difficulty we referred her to [facility] Emergency Room. She continues to note ongoing difficulty with malaise, fevers, nausea, headaches some mild increased right hip pain. Patient History Medical History Anxiety Cerebral aneurysm Depression Fibromyalgia History of MRSA infection (2015) HTN (hypertension) Lupus Mini stroke (2018) Panic attacks PTSD (post-traumatic stress disorder) TIA (transient ischemic attack) Surgical History H/O left wrist surgery (~2015) History of arthroscopy of both knees History of hysterectomy History of incision and drainage (2015) Hx of bilateral cataract extraction Hx of cholecystectomy (09/2019) Hx of eye surgery (07/2019) Hx of tonsillectomy S/P coil embolization of cerebral aneurysm (11/15/12) Family & Social History Social History: household members children Prior Living Arrangements House Safety & Behavioral: Feels Safe in Current Yes Environment Been Physically Hurt or No Threatened By a Person Suicidal Ideation Description None Suicide Plan Description No Plan Tobacco & Substance use: Smoking Status Former smoker alcohol intake current alcohol intake frequency a few times a month Substance Use Type does not use Meds Home Medications and Allergies Home Medications Medication Instructions Recorded Confirmed Type albuterol sulfate 2 puff INHALATION Q4-6H PRN 06/15/20 07/05/20 History chlorthalidone 25 mg PO DAILY 06/15/20 07/05/20 History famotidine 40 mg PO BEDTIME 06/15/20 07/05/20 History gabapentin 100 mg PO BEDTIME PRN 06/15/20 07/05/20 History hydroxyzine HCl 50 mg PO TID PRN 06/15/20 07/05/20 History ibuprofen 400 mg PO QID PRN 06/15/20 07/05/20 History losartan 100 mg PO DAILY 06/15/20 07/05/20 History prednisolone acetate 1 drp EYE-BOTH TID 06/15/20 07/05/20 History prednisone 10 mg PO DAILY 06/15/20 07/05/20 History diphenhydramine HCl 50 mg PO QID PRN 07/05/20 07/05/20 History acetaminophen 650 mg PO TID #20 tab 07/06/20 Rx aspirin 81 mg PO BID #30 tab 07/06/20 Rx docusate sodium [DOK] 100 mg PO BID #30 cap 07/06/20 Rx oxycodone 5 mg PO Q4-6H PRN #40 tab 07/06/20 Rx Allergies Allergy/AdvReac Type Severity Reaction Status Date / Time Every antibiotic except Allergy Severe Lips turn Uncoded 07/05/20 09:28 Vancomycin blue/swell, I can't breathe, long-term rash Review of Systems Review of Systems Narrative: See above, some urinary issues, fevers, chills, malaise, anorexia, nausea, vomiting, lightheadedness, headaches Exam Vital Signs (past 8 hours): - 08/09/20 15:04 08/09/20 15:30 08/09/20 15:44 Temperature 97.9 F Pulse Rate 91 H 94 H Blood Pressure 160/104 H Pulse Oximetry 98 96 08/09/20 16:00 08/09/20 16:30 08/09/20 16:36 Temperature Pulse Rate 92 H 87 89 Blood Pressure 126/60 Pulse Oximetry 96 95 96 08/09/20 17:00 Temperature Pulse Rate 86 Blood Pressure 124/59 L Pulse Oximetry 96 Narrative Exam Narrative: She appears to be distressed, she is calm but she is warm and mildly diaphoretic. HEENT is benign, abdomen slightly distended but no rebound tenderness, right hip wound has decreased erythema in comparison to previously and appears to be healing with no active drainage, fairly mild pain with right gentle range of motion in the right hip, neurologically intact distally, ad equate capillary refill distally and palpable pulses, multiple skin abnormalities rash and abnormalities Objective Labs Result Diagrams: 08/09/20 14:42 08/09/20 14:42 Labs: Laboratory Results - last 24 hr 08/09/20 08/09/20 08/09/20 14:42 14:42 14:42 WBC 15.7 H RBC 4.93 Hgb 13.7 Hct 40.7 MCV 82.6 MCH 27.8 MCHC 33.7 RDW 13.3 Plt Count 217 Neut % (Auto) 65.4 Lymph % (Auto) 19.0 L [place] % (Auto) 13.3 Eos % (Auto) 2.0 Baso % (Auto) 0.3 Neut # (Auto) 03466 H Lymph # (Auto) 3000 [place] # (Auto) 2100 H Eos # (Auto) 300 Baso # (Auto) 0 ESR 26 H Sodium 134 L Potassium 3.4 Chloride 102 Carbon Dioxide 28 BUN 14 Creatinine 0.84 Estimated GFR > 60.0 BUN/Creatinine Ratio 16.7 Glucose 118 H Lactate Calcium 9.3 Total Bilirubin 1.1 AST 26 ALT 14 Alkaline Phosphatase 96 C-Reactive Protein 4.6 H Total Protein 8.1 Albumin 3.8 Globulin 4.3 H Albumin/Globulin Ratio 0.9 L Lipase 152 Procalcitonin 0.07 COVID-19 PCR 08/09/20 08/09/20 14:42 16:21 WBC RBC Hgb Hct MCV MCH MCHC RDW Plt Count Neut % (Auto) Lymph % (Auto) [place] % (Auto) Eos % (Auto) Baso % (Auto) Neut # (Auto) Lymph # (Auto) [place] # (Auto) Eos # (Auto) Baso # (Auto) ESR Sodium Potassium Chloride Carbon Dioxide BUN Creatinine Estimated GFR BUN/Creatinine Ratio Glucose Lactate 1.4 Calcium Total Bilirubin AST ALT Alkaline Phosphatase C-Reactive Protein Total Protein Albumin Globulin Albumin/Globulin Ratio Lipase Procalcitonin COVID-19 PCR Negative Assessment & Plan Assessment & Plan narrative: Right hip mild cellulitis but very concerning because of fevers and chills recent right total hip arthroplasty and elevated white blood cell count. I have recommended an aspiration of her right hip wound. Her right hip was prepped with ChloraPrep and then a 22 gauge spinal n eedle was carefully inserted along the skin incision down into the subcutaneous tissues and deep less than 1 cc of bloody fluid was carefully aspirated. It was sent for Gram stain culture and sensitivity. I think she does appear to be ill with likely an infection. Her urinalysis is currently pending. She is having difficulty keeping things down and likely is somewhat dehydrated. Think she nee ds to be admitted to the the hospital. She may have an underlying right hip periprosthetic infection. She is very antibiotic intolerant with what sounds like Juan Daniel Maurizio's type reactions in the past. I discussed her case with Dr. webster and I think it is reasonable for her to get started on vancomycin pending cultures. She may require irrigation and debridement of her right hip and polyethylene exchange.
[2020-08-09] MEDS: MORPHINE 2 MG/ML INJ IV (20:18)
[2020-08-09] MEDS: SODIUM CHLORIDE 0.9% 1,000 ML 100 ML IV (20:18)
[2020-08-09 20:19] LABS: Magnesium 1.9 mg/dL (1.6-2.3)
[2020-08-09 20:48] LABS: Bacteria Urine Few (2-10); Mucus Urine 1+ (Negative); RBC Urine 0-1/HPF (0-5/HPF); Squamous Epithelial Cell Urine 1-5 /HPF (0-5/HPF); WBC Urine 5-10/HPF (0-5/HPF)
[2020-08-09 20:49] LABS: Culture Indicated Urine Specimen Cultured
--- NOTE | 2020-08-09 20:58 | P.HP_ITS ---
History of Present Illness History of Present Illness Date Patient Seen: 08/09/20 Time Patient Seen: 20:00 Chief complaint: Cannot eat, fevers, s/p right total hip arthroplas Narrative: Fany Swartz is a pleasant 65 y.o. female status post right total hip arthopl asty on 07/05/[address] Fatou Escoto who presented today with fevers and inability to eat for 2 weeks. She states that she is unable to keep anything down, she either vomits her food back up or has diarrhea. She does not know what her vomitus looks like however she states that her diarrhea is mustard colored. She vomits at least once daily, urine is orange but no burning or blood seen. Denies chest pain, shortness of breath, has abdominal cramping associated with vomiting, has mild mid lateral thigh pain distal to the hip incision site. 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 She is from [facility] however was trying to get set up at the [facility]. She states that this started about 2 weeks ago and had a follow-up with Dr. Escoto and due to her fevers was instructed to have a COVID test done. She was able to go to that office yesterday to rule remove the agnieszka from her right hip. She has had fevers as well, generally 100 degrees. The patient is allergic to all antibiotic medications with exception of vancomycin. 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 Patient was tested for COVID -19 presurgically on July 02 and again today in the ED. She states that her community has not been hit with COVID-19 until this past week when a friend of her daughters apparently came down with COVID- 19. The patient's COVID-19 test done today was the rapid test. She was administered IV Vancomycin 1 gram in the ED. Right hip x-ray done while in the ED was unremarkable. Patient's temperature is 100.5 degree, blood pressure 142/72, heart rate 82, respiratory rate 24, oxygen saturation 100% on room air, she weighs 98.5 kg with a BMI of 39.6. She does have an elevated white count of 15.7 with a left shift and neutrophil count of 10,300, she also is lymphopenic at 19%, ESR is elevated at 26, sodium 134, glucose 118, CRP was elevated at 4.6, urine WBC was elevated at 5 to 10 high-powered field, few bacteria, and mucus. It did meet criteria for culture. Initial COVID-19 test was negative Patient History Medical History (Updated 08/09/20 @ 21:05 by [facility] Trevino) Anxiety Cerebral aneurysm Depression Fibromyalgia History of MRSA infection (2015) HTN (hypertension) Lupus Mini stroke (2018) Panic attacks PTSD (post-traumatic stress disorder) Shaw-Maurizio syndrome TIA (transient ischemic attack) Surgical History (Updated 08/09/20 @ 22:37 by [facility] Trevino) H/O left wrist surgery (~2015) History of arthroscopy of both knees History of hysterectomy History of incision and drainage (2015) History of total right hip arthroplasty Hx of bilateral cataract extraction Hx of cholecystectomy (09/2019) Hx of eye surgery (07/2019) Hx of tonsillectomy S/P coil embolization of cerebral aneurysm (11/15/12) Family & Social History Family History Father Leukemia Mother Ovarian cancer Social History: household members Adult children Prior Living Arrangements House Safety & Behavioral: Feels Safe in Current Yes Environment Been Physically Hurt or No Threatened By a Person Suicidal Ideation Description None Suicide Plan Description No Plan Tobacco & Substance use: Smoking Status Former smoker alcohol intake current alcohol intake frequency a few times a month Substance Use Type does not use Meds Home Medications and Allergies Home Medications Medication Instructions Recorded Confirmed Type albuterol sulfate 2 puff INHALATION Q4-6H PRN 06/15/20 08/09/20 History chlorthalidone 25 mg PO DAILY 06/15/20 08/09/20 History famotidine 40 mg PO BEDTIME 06/15/20 08/09/20 History gabapentin 100 mg PO BEDTIME PRN 06/15/20 08/09/20 History hydroxyzine HCl 50 mg PO TID PRN 06/15/20 08/09/20 History ibuprofen 400 mg PO QID PRN 06/15/20 08/09/20 History losartan 100 mg PO DAILY 06/15/20 08/09/20 History prednisolone acetate 1 drp EYE-BOTH TID 06/15/20 08/09/20 History prednisone 10 mg PO DAILY 06/15/20 08/09/20 History diphenhydramine HCl 50 mg PO QID PRN 07/05/20 08/09/20 History acetaminophen 650 mg PO TID #20 tab 07/06/20 08/09/20 Rx aspirin 81 mg PO BID #30 tab 07/06/20 08/09/20 Rx docusate sodium [DOK] 100 mg PO BID #30 cap 07/06/20 08/09/20 Rx oxycodone 5 mg PO Q4-6H PRN #40 tab 07/06/20 08/09/20 Rx Allergies Allergy/AdvReac Type Severity Reaction Status Date / Time Every antibiotic except Allergy Severe Lips turn Uncoded 07/05/20 09:28 Vancomycin blue/swell, I can't breathe, long-term rash Review of Systems Review of Systems ROS: Yes All systems reviewed with the patient and are negative except as otherwise documented Exam Vital Signs (past 8 hours): - 08/09/20 15:04 08/09/20 15:30 08/09/20 15:44 Temperature 97.9 F Pulse Rate 91 H 94 H Respiratory Rate Blood Pressure 160/104 H Pulse Oximetry 98 96 08/09/20 16:00 08/09/20 16:30 08/09/20 16:36 Temperature Pulse Rate 92 H 87 89 Respiratory Rate Blood Pressure 126/60 Pulse Oximetry 96 95 96 08/09/20 17:00 08/09/20 18:00 08/09/20 19:49 Temperature 100 F H 100 F H Pulse Rate 86 82 82 Respiratory Rate 24 24 Blood Pressure 124/59 L 142/72 H 142/72 H Pulse Oximetry 96 100 100 Oxygen Flow Rate 0 Narrative Exam Narrative: Gen: Alert, oriented, well-developed 65 y.o. female, in distress due to nausea and dry heaving HEENT: normocephalic, atraumatic, conjunctiva clear, sclera non-icteric, oral mucosa is dry Neck: supple, full ROM, no JVD, trachea is midline Resp: Lungs CTA, non-labored breathing CV: RRR, no murmur or rubs Abd: soft, non-tender, normoactive BTs Skin: Well healed surgical incision scar right lateral aspect of hip, no lesions or rashes, dry and intact Neuro: Alert and oriented X 4 w/no focal deficits. Speech clear and coherent. Extremities: moves all 4 extremities, is ambulatory, negative Rosa?s sign Psyche: normal mood and affect. Objective Labs Result Diagrams: 08/09/20 14:42 08/09/20 14:42 Labs: Laboratory Results - last 24 hr 08/09/20 08/09/20 08/09/20 14:42 14:42 14:42 WBC 15.7 H RBC 4.93 Hgb 13.7 Hct 40.7 MCV 82.6 MCH 27.8 MCHC 33.7 RDW 13.3 Plt Count 217 Neut % (Auto) 65.4 Lymph % (Auto) 19.0 L [place] % (Auto) 13.3 Eos % (Auto) 2.0 Baso % (Auto) 0.3 Neut # (Auto) 59734 H Lymph # (Auto) 3000 [place] # (Auto) 2100 H Eos # (Auto) 300 Baso # (Auto) 0 ESR 26 H Sodium 134 L Potassium 3.4 Chloride 102 Carbon Dioxide 28 BUN 14 Creatinine 0.84 Estimated GFR > 60.0 BUN/Creatinine Ratio 16.7 Glucose 118 H Lactate Calcium 9.3 Magnesium Total Bilirubin 1.1 AST 26 ALT 14 Alkaline Phosphatase 96 C-Reactive Protein 4.6 H Total Protein 8.1 Albumin 3.8 Globulin 4.3 H Albumin/Globulin Ratio 0.9 L Lipase 152 Procalcitonin 0.07 Urine RBC Urine WBC Ur Squamous Epith Cells Urine Bacteria Urine Mucus Ur Culture Indicated? COVID-19 PCR 08/09/20 08/09/20 08/09/20 14:42 16:21 19:42 WBC RBC Hgb Hct MCV MCH MCHC RDW Plt Count Neut % (Auto) Lymph % (Auto) [place] % (Auto) Eos % (Auto) Baso % (Auto) Neut # (Auto) Lymph # (Auto) [place] # (Auto) Eos # (Auto) Baso # (Auto) ESR Sodium Potassium Chloride Carbon Dioxide BUN Creatinine Estimated GFR BUN/Creatinine Ratio Glucose Lactate 1.4 Calcium Magnesium 1.9 Total Bilirubin AST ALT Alkaline Phosphatase C-Reactive Protein Total Protein Albumin Globulin Albumin/Globulin Ratio Lipase Procalcitonin Urine RBC Urine WBC Ur Squamous Epith Cells Urine Bacteria Urine Mucus Ur Culture Indicated? COVID-19 PCR Negative 08/09/20 20:20 WBC RBC Hgb Hct MCV MCH MCHC RDW Plt Count Neut % (Auto) Lymph % (Auto) [place] % (Auto) Eos % (Auto) Baso % (Auto) Neut # (Auto) Lymph # (Auto) [place] # (Auto) Eos # (Auto) Baso # (Auto) ESR Sodium Potassium Chloride Carbon Dioxide BUN Creatinine Estimated GFR BUN/Creatinine Ratio Glucose Lactate Calcium Magnesium Total Bilirubin AST ALT Alkaline Phosphatase C-Reactive Protein Total Protein Albumin Globulin Albumin/Globulin Ratio Lipase Procalcitonin Urine RBC 0-1/hpf Urine WBC 5-10/hpf H Ur Squamous Epith Cells 1-5 /hpf Urine Bacteria Few (2-10) H Urine Mucus 1+ H Ur Culture Indicated? Specimen cultured COVID-19 PCR Assessment & Plan Assessment & Plan narrative: Fany Swartz was seen by Dr. Escoto and referred to the ED for further evaluation of a fever of unknown origin and to initiate empiric antibiotic management of a presumed infection. Fever of unknown origin, actute present on admission -Repeat the higher sensitivity COVID-19 test due to the lymphopenia and fevers resulted negative -Currently there is a mild to moderate suspicion of an interarticlular infection of her hip replacement site and Dr. Escoto did a needle aspiration of her joint. -Culture of the joint aspirate pending as well as blood cultures -PO tylenol 650 q 6 hours prn fevers -Repeat lactate and procalcitonin morning of 08/10 -She was administered IV vancomycin at 1510 today. This will be continued per pharmacy starting 08/10. Post op pain -pain control with tylenol and IV morphine 2 mgs Suspected UTI -U/A cultured and pending -She has a history of MRSA, currently on IV vancomycin Nausea and vomiting -She is on a heart healthy diet, but is currently only taking in water -IV NS at 100 ml/hour -IV ondansatron 4 mg and metoclopramide 5 mg alternating q 3 hours for vomiting Essential hypertension -Continue home dose of losartan 100 mg po daily GERD -Normally takes famotidine, will substitute with protonix 40 mg daily Bilateral cataracts, chronic -Continue home predisolone eye drops bilaterll tid VTE prophylaxis: Wells risk score: 1.5 Enoxaparin 40 mg subQ daily Consults: Dr. Fatou Escoto, consult and involvement is appreciated. Patient is admitted under inpatient status with expected length of stay greater than 2 midnights due to severity of presenting symptoms, risk of adverse event, and complexity of treatment plan. FEN: IV NS at 100 ml/hour, heart healty diet, BMP and magnesium in the am. Dispo: Unknown at this time Code Status: full code as discussed with patient Scores Wells' Criteria for PE Clinical signs and symptoms of DVT: No PE is #1 Dx or equally likely: No Heart rate > 100: No Immobilization at least 3 days or surg in previous 4 weeks: Yes History of PE or DVT: No Hemoptysis: No Malignancy w/Treatment within 6 months or palliative: No Wells' PE Score total: 1.5 Quality VTE Deep Vein Thrombosis/Pulmonary Embolism Present on Admission: No
[2020-08-09] MEDS: prednisoLONE OPHTH SUSP 1 DROPS EYE-BOTH (21:13)
[2020-08-09] MEDS: ASPIRIN EC 81 MG TABLET PO (21:14)
[2020-08-09] MEDS: FAMOTIDINE 20 MG TABLET 40 MG PO (21:14)
--- NOTE | 2020-08-09 22:26 | PC.NURSE ---
A&OX4. 100%RA. pain controlled with morphine. had some nausea, medicated with zofran. febrile 100.5, gave tylenol and cool wash cloth on top of forehead. voiding without difficulty and using the bedpan. 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 erythema on incision site.
[2020-08-09 22:59] LABS: COVID19 -Nasal RAPID Negative (Negative)
[2020-08-10] VITALS (15 sets, daily range): BP systolic 105–140; BP diastolic 52–74; PULSE 84–120; RESP 15–18; TEMP 36.9–39.3; O2SAT 95–100
[2020-08-10] MEDS: ACETAMINOPHEN 325 MG TABLET 650 MG PO ×3 (01:04→17:33)
[2020-08-10] MEDS: ONDANSETRON 4 MG/2 ML INJ IV ×3 (01:10→14:57)
[2020-08-10] MEDS: VANCOMYCIN 1,000 MG/200 ML PIGGYBACK 200 MG IV ×2 (03:04→14:17)
[2020-08-10] MEDS: MORPHINE 2 MG/ML INJ IV (03:11)
[2020-08-10] MEDS: PANTOPRAZOLE 20 MG TABLET PO (05:17)
[2020-08-10] MEDS: METOCLOPRAMIDE 10 MG/2 ML INJ 5 MG IV ×2 (05:17→17:33)
[2020-08-10 05:31] LABS: Add Manual Diff / Slide Review NO; Basophils Absolute Auto 0 /uL (0-100); Basophils Percent Auto 0.3 % (0-2); Eosinophils Absolute Auto 400 /uL (0-450); Eosinophils Percent Auto 2.8 % (2-4); Hematocrit 36.1 % (36-46); Hemoglobin 11.8 g/dL (12.0-16.0); Lymphocytes Absolute Auto 2200 /uL (1100-4500); Mean Corpuscular HGB Conc 32.8 % (30-36); Mean Corpuscular Hemoglobin 27.4 PG (26-34); Mean Corpuscular Volume 83.8 fL (80-100); Monocytes Absolute Auto 2100 /uL (0-900); Monocytes Percent Auto 13.9 % (3-14); Neutrophils Absolute Auto 10200 /uL (1500-7000); Platelet Count 177 X10^3/uL (150-400); Red Blood Cell Count 4.31 X10^6/uL (4.0-5.2); Red Cell Distribution Width 13.1 % (11.6-14.8); White Blood Cell Count 14.9 X10^3/uL (4.5-11.0)
[2020-08-10 05:36] LABS: Lactate (Lactic Acid) 0.8 mmol/L (0.7-2.1)
[2020-08-10 05:56] LABS: BUN Creatinine Ratio 16.7 (6-22); Blood Urea Nitrogen 14 mg/dL (7-17); Calcium 8.4 mg/dL (8.4-10.2); Carbon Dioxide 29 mmol/L (22-32); Chloride 104 mmol/L (98-107); Estimated Glomerular Filt Rate > 60.0 mL/min (>60); Glucose 115 mg/dL (80-110); HEMOLYSIS < 15 (0-50); Magnesium 1.9 mg/dL (1.6-2.3); Potassium 3.4 mmol/L (3.4-5.1); Sodium 134 mmol/L (137-145)
[2020-08-10 05:58] LABS: Procalcitonin 0.08 ng/mL (<0.5)
--- NOTE | 2020-08-10 07:14 | DI.RAD.S_ITS ---
PROCEDURE: XR CHEST 1V INDICATIONS: chest pain TECHNIQUE: One view of the chest was acquired. COMPARISON: None. FINDINGS: Surgical changes and devices: None. Lungs and pleura: There is mild prominence of the central pulmonary vasculature. No acute airspace consolidation is seen. No pleural effusions or pneumothorax. Mediastinum: Mediastinal contours appear normal. Heart size is normal. Bones and chest wall: No suspicious bony lesions. Overlying soft tissues appear unremarkable. IMPRESSION: Mild prominence of the central pulmonary vasculature could represent mild volume overload, although this could be exaggerated by semi upright positioning. No acute airspace opacity is seen. Dictated by: Jim Mack M.D. on 08/10/2020 at 7:42 Approved by: Jim Mack M.D. on 08/10/2020 at 7:43
[2020-08-10] MEDS: NITROGLYCERIN 0.3 MG SL TAB SL (07:37)
[2020-08-10] MEDS: SODIUM CHLORIDE 0.9% 1,000 ML 100 ML IV ×2 (08:06→19:52)
[2020-08-10] MEDS: ASPIRIN EC 81 MG TABLET PO ×2 (08:07→21:02)
[2020-08-10] MEDS: LOSARTAN 50 MG TABLET 100 MG PO (08:07)
[2020-08-10] MEDS: ENOXAPARIN 40 MG/0.4 ML SYRINGE SUBCUT (08:07)
[2020-08-10] MEDS: prednisoLONE OPHTH SUSP 1 DROPS EYE-BOTH ×3 (08:19→21:01)
--- NOTE | 2020-08-10 08:23 | DI.CT.S_ITS ---
PROCEDURE: CT CHEST ABD PEL W CON INDICATIONS: fever of unknown origin TECHNIQUE: After the administration of oral and intravenous contrast, 5 mm thick sections acquired from the lung apices to the symphysis. 5 mm coronal and sagittal reformats were performed, with additional 7 mm coronal MIP reformats through the lungs. For radiation dose reduction, the following was used: automated exposure control, adjustment of mA and/or kV according to patient size. COMPARISON: None. FINDINGS: Image quality: Excellent. CHEST: Lungs and pleura: No acute airspace opacities. No pleural effusions or pneumothorax. Central and peripheral airways appear patent and normal in caliber. Mediastinum: Heart size is normal. No pericardial effusion. No mediastinal or hilar adenopathy by size criteria. Thoracic aorta and central pulmonary arteries are normal in size. Esophagus is normal in caliber. No hiatal hernia. Chest wall: No axillary or supraclavicular adenopathy by size criteria. Thyroid gland is unremarkable . ABDOMEN: Solid organs: Liver is normal in size and enhancement. Gallbladder is surgically absent . Biliary system is non dilated. Pancreas enhances normally. Spleen is normal in size and enhancement. No adrenal nodules. Kidneys demonstrate normal size and enhancement, without hydronephrosis. Peritoneum and bowel: Bowel loops demonstrate normal wall thickness and caliber. No free fluid or air. Nodes and vessels: No retroperitoneal or mesenteric adenopathy by size criteria. Aorta and inferior vena cava are normal in size. Miscellaneous: Small periumbilical hernia containing fat. PELVIS: Genitourinary: Bladder wall thickness is normal. Miscellaneous: No inguinal hernias or adenopathy. Uterus is surgically absent. Bones: No suspicious bony lesions. No acute vertebral body compression fractures. Total right hip arthroplasty with no evidence of hardware failure or loosening. IMPRESSION: 1. No evidence acute process in the chest, abdomen, and pelvis. Dictated by: Abdirashid Wills M.D. on 08/10/2020 at 11:35 Approved by: Abdirashid Wills M.D. on 08/10/2020 at 11:42
[2020-08-10 08:24] LABS: Creatine Kinase 46 U/L (30-135)
[2020-08-10 08:33] LABS: Troponin I < 0.012 ng/mL (0.01-0.034)
--- NOTE | 2020-08-10 09:59 | P.PN_ITS ---
Subjective Subjective Date Patient Seen: 08/10/20 Time Patient Seen: 09:59 Interval history: Patient's pain is well controlled. Denies fever/ chills. No nausea /vomiting. Exam Vital Signs (past 8 hours): - 08/10/20 03:45 08/10/20 07:10 08/10/20 07:37 Temperature 99.8 F H 102.7 F H 102.7 F H Pulse Rate 94 H 100 H Respiratory Rate 18 15 Blood Pressure 121/68 118/62 Pulse Oximetry 100 95 Oxygen Delivery Method Room Air Oxygen Flow Rate 0 Narrative Exam Narrative: 65-year-old female resting comfortably in bedside chair in no apparent distress. Right hip incision healing well. Sensation and motor function intact distal right lower extremity. Objective Labs Result Diagrams: 08/10/20 04:45 08/10/20 04:45 Labs: Laboratory Results - last 24 hr 08/09/20 08/09/20 08/09/20 14:42 14:42 14:42 WBC 15.7 H RBC 4.93 Hgb 13.7 Hct 40.7 MCV 82.6 MCH 27.8 MCHC 33.7 RDW 13.3 Plt Count 217 Neut % (Auto) 65.4 Lymph % (Auto) 19.0 L [place] % (Auto) 13.3 Eos % (Auto) 2.0 Baso % (Auto) 0.3 Neut # (Auto) 26513 H Lymph # (Auto) 3000 [place] # (Auto) 2100 H Eos # (Auto) 300 Baso # (Auto) 0 ESR 26 H Sodium 134 L Potassium 3.4 Chloride 102 Carbon Dioxide 28 BUN 14 Creatinine 0.84 Estimated GFR > 60.0 BUN/Creatinine Ratio 16.7 Glucose 118 H Lactate Calcium 9.3 Magnesium Total Bilirubin 1.1 AST 26 ALT 14 Alkaline Phosphatase 96 Total Creatine Kinase CK-MB (CK-2) CK-MB (CK-2) Rel Index Troponin I C-Reactive Protein 4.6 H Total Protein 8.1 Albumin 3.8 Globulin 4.3 H Albumin/Globulin Ratio 0.9 L Lipase 152 Procalcitonin 0.07 Urine RBC Urine WBC Ur Squamous Epith Cells Urine Bacteria Urine Mucus Ur Culture Indicated? COVID-19 PCR 08/09/20 08/09/20 08/09/20 14:42 16:21 19:42 WBC RBC Hgb Hct MCV MCH MCHC RDW Plt Count Neut % (Auto) Lymph % (Auto) [place] % (Auto) Eos % (Auto) Baso % (Auto) Neut # (Auto) Lymph # (Auto) [place] # (Auto) Eos # (Auto) Baso # (Auto) ESR Sodium Potassium Chloride Carbon Dioxide BUN Creatinine Estimated GFR BUN/Creatinine Ratio Glucose Lactate 1.4 Calcium Magnesium 1.9 Total Bilirubin AST ALT Alkaline Phosphatase Total Creatine Kinase CK-MB (CK-2) CK-MB (CK-2) Rel Index Troponin I C-Reactive Protein Total Protein Albumin Globulin Albumin/Globulin Ratio Lipase Procalcitonin Urine RBC Urine WBC Ur Squamous Epith Cells Urine Bacteria Urine Mucus Ur Culture Indicated? COVID-19 PCR Negative 08/09/20 08/09/20 08/10/20 20:20 21:52 04:45 WBC RBC Hgb Hct MCV MCH MCHC RDW Plt Count Neut % (Auto) Lymph % (Auto) [place] % (Auto) Eos % (Auto) Baso % (Auto) Neut # (Auto) Lymph # (Auto) [place] # (Auto) Eos # (Auto) Baso # (Auto) ESR Sodium Potassium Chloride Carbon Dioxide BUN Creatinine Estimated GFR BUN/Creatinine Ratio Glucose Lactate Calcium Magnesium Total Bilirubin AST ALT Alkaline Phosphatase Total Creatine Kinase CK-MB (CK-2) CK-MB (CK-2) Rel Index Troponin I C-Reactive Protein Total Protein Albumin Globulin Albumin/Globulin Ratio Lipase Procalcitonin 0.08 Urine RBC 0-1/hpf Urine WBC 5-10/hpf H Ur Squamous Epith Cells 1-5 /hpf Urine Bacteria Few (2-10) H Urine Mucus 1+ H Ur Culture Indicated? Specimen cultured COVID-19 PCR Negative 08/10/20 08/10/20 08/10/20 04:45 04:45 04:45 WBC 14.9 H RBC 4.31 Hgb 11.8 L Hct 36.1 MCV 83.8 MCH 27.4 MCHC 32.8 RDW 13.1 Plt Count 177 Neut % (Auto) 68.0 Lymph % (Auto) 15.0 L [place] % (Auto) 13.9 Eos % (Auto) 2.8 Baso % (Auto) 0.3 Neut # (Auto) 04803 H Lymph # (Auto) 2200 [place] # (Auto) 2100 H Eos # (Auto) 400 Baso # (Auto) 0 ESR Sodium 134 L Potassium 3.4 Chloride 104 Carbon Dioxide 29 BUN 14 Creatinine 0.84 Estimated GFR > 60.0 BUN/Creatinine Ratio 16.7 Glucose 115 H Lactate 0.8 Calcium 8.4 Magnesium 1.9 Total Bilirubin AST ALT Alkaline Phosphatase Total Creatine Kinase CK-MB (CK-2) CK-MB (CK-2) Rel Index Troponin I C-Reactive Protein Total Protein Albumin Globulin Albumin/Globulin Ratio Lipase Procalcitonin Urine RBC Urine WBC Ur Squamous Epith Cells Urine Bacteria Urine Mucus Ur Culture Indicated? COVID-19 PCR 08/10/20 04:45 WBC RBC Hgb Hct MCV MCH MCHC RDW Plt Count Neut % (Auto) Lymph % (Auto) [place] % (Auto) Eos % (Auto) Baso % (Auto) Neut # (Auto) Lymph # (Auto) [place] # (Auto) Eos # (Auto) Baso # (Auto) ESR Sodium Potassium Chloride Carbon Dioxide BUN Creatinine Estimated GFR BUN/Creatinine Ratio Glucose Lactate Calcium Magnesium Total Bilirubin AST ALT Alkaline Phosphatase Total Creatine Kinase 46 CK-MB (CK-2) TNP CK-MB (CK-2) Rel Index TNP Troponin I < 0.012 C-Reactive Protein Total Protein Albumin Globulin Albumin/Globulin Ratio Lipase Procalcitonin Urine RBC Urine WBC Ur Squamous Epith Cells Urine Bacteria Urine Mucus Ur Culture Indicated? COVID-19 PCR PFSH Medical History Anxiety Cerebral aneurysm Depression Fibromyalgia History of MRSA infection (2015) HTN (hypertension) Lupus Mini stroke (2017) Panic attacks PTSD (post-traumatic stress disorder) Shaw-Maurizio syndrome TIA (transient ischemic attack) Surgical History H/O left wrist surgery (~2015) History of arthroscopy of both knees History of hysterectomy History of incision and drainage (2015) History of total right hip arthroplasty Hx of bilateral cataract extraction Hx of cholecystectomy (09/2019) Hx of eye surgery (07/2019) Hx of tonsillectomy S/P coil embolization of cerebral aneurysm (11/15/12) Family History Father Leukemia Mother Ovarian cancer Social History household members: children Smoking Status: Former smoker alcohol intake: current Assessment & Plan Assessment & Plan narrative: Stable. Hospitalist monitoring patient for fever of unknown origin. CT chest, abd, pel w con ordered today by Dr. Cordoba. Joint aspirated yesterday cultures pending Gram stain finalized and no organisms seen Per Dr. Escoto 08/09/2020 Right hip mild cellulitis but very concerning because of fevers and chills recent right total hip arthroplasty and elevated white blood cell count. I have recommended an aspiration of her right hip wound. Her right hip was prepped wi th ChloraPrep and then a 22 gauge spinal needle was carefully inserted along the skin incision down into the subcutaneous tissues and deep less than 1 cc of bloody fluid was carefully aspirated. It was sent for Gram stain culture and sensitivity. I think she does appear to be ill with likely an infection. Her urinalysis is currently pending. She is having difficulty keeping things down and likely is somewhat dehydrated. Think she needs to be admitted to the the hospital. She may have an underlying right hip periprosthetic infection. She is very antibiotic intolerant with what sounds like Juan Daniel Maurizio's type reactions in the past. I discussed her case with Dr. cordoba and I think it is reasonable for her to get started on vancomycin pending cultures. She may require irrigation and debridement of her right hip and polyethylene exchange. COVID-19 COVID-19 status: Negative Result date/Date tested (Pos, Neg/Pending): 08/09/20 Quality VTE Deep Vein Thrombosis/Pulmonary Embolism Present on Admission: No
--- NOTE | 2020-08-10 12:41 | P.PN_ITS ---
Subjective Subjective Date Patient Seen: 08/10/20 Time Patient Seen: 08:03 Interval history: She notes that she is feeling a little better this morning. She still has an ongoing headache but somewhat less nausea. She has fairly minimal right hip pain. Exam Vital Signs (past 8 hours): - 08/10/20 07:10 08/10/20 07:37 08/10/20 08:00 Temperature 102.7 F H 102.7 F H Pulse Rate 100 H Respiratory Rate 15 Blood Pressure 118/62 Pulse Oximetry 95 95 08/10/20 11:27 Temperature 99.3 F Pulse Rate 88 Respiratory Rate 16 Blood Pressure 127/68 Pulse Oximetry 100 Oxygen Delivery Method Room Air Oxygen Flow Rate 0 Narrative Exam Narrative: She is alert she is oriented she has fair range of motion in her neck, lungs are clear, abdomen is obese but benign, right hip there is minimal erythema along the incision with no drainage, no pain with range of motion Objective Labs Result Diagrams: 08/10/20 04:45 08/10/20 04:45 Labs: Laboratory Results - last 24 hr 08/09/20 08/09/20 08/09/20 14:42 14:42 14:42 WBC 15.7 H RBC 4.93 Hgb 13.7 Hct 40.7 MCV 82.6 MCH 27.8 MCHC 33.7 RDW 13.3 Plt Count 217 Neut % (Auto) 65.4 Lymph % (Auto) 19.0 L [place] % (Auto) 13.3 Eos % (Auto) 2.0 Baso % (Auto) 0.3 Neut # (Auto) 87646 H Lymph # (Auto) 3000 [place] # (Auto) 2100 H Eos # (Auto) 300 Baso # (Auto) 0 ESR 26 H Sodium 134 L Potassium 3.4 Chloride 102 Carbon Dioxide 28 BUN 14 Creatinine 0.84 Estimated GFR > 60.0 BUN/Creatinine Ratio 16.7 Glucose 118 H Lactate Calcium 9.3 Magnesium Total Bilirubin 1.1 AST 26 ALT 14 Alkaline Phosphatase 96 Total Creatine Kinase CK-MB (CK-2) CK-MB (CK-2) Rel Index Troponin I C-Reactive Protein 4.6 H Total Protein 8.1 Albumin 3.8 Globulin 4.3 H Albumin/Globulin Ratio 0.9 L Lipase 152 Procalcitonin 0.07 Urine RBC Urine WBC Ur Squamous Epith Cells Urine Bacteria Urine Mucus Ur Culture Indicated? COVID-19 PCR 08/09/20 08/09/20 08/09/20 14:42 16:21 19:42 WBC RBC Hgb Hct MCV MCH MCHC RDW Plt Count Neut % (Auto) Lymph % (Auto) [place] % (Auto) Eos % (Auto) Baso % (Auto) Neut # (Auto) Lymph # (Auto) [place] # (Auto) Eos # (Auto) Baso # (Auto) ESR Sodium Potassium Chloride Carbon Dioxide BUN Creatinine Estimated GFR BUN/Creatinine Ratio Glucose Lactate 1.4 Calcium Magnesium 1.9 Total Bilirubin AST ALT Alkaline Phosphatase Total Creatine Kinase CK-MB (CK-2) CK-MB (CK-2) Rel Index Troponin I C-Reactive Protein Total Protein Albumin Globulin Albumin/Globulin Ratio Lipase Procalcitonin Urine RBC Urine WBC Ur Squamous Epith Cells Urine Bacteria Urine Mucus Ur Culture Indicated? COVID-19 PCR Negative 08/09/20 08/09/20 08/10/20 20:20 21:52 04:45 WBC RBC Hgb Hct MCV MCH MCHC RDW Plt Count Neut % (Auto) Lymph % (Auto) [place] % (Auto) Eos % (Auto) Baso % (Auto) Neut # (Auto) Lymph # (Auto) [place] # (Auto) Eos # (Auto) Baso # (Auto) ESR Sodium Potassium Chloride Carbon Dioxide BUN Creatinine Estimated GFR BUN/Creatinine Ratio Glucose Lactate Calcium Magnesium Total Bilirubin AST ALT Alkaline Phosphatase Total Creatine Kinase CK-MB (CK-2) CK-MB (CK-2) Rel Index Troponin I C-Reactive Protein Total Protein Albumin Globulin Albumin/Globulin Ratio Lipase Procalcitonin 0.08 Urine RBC 0-1/hpf Urine WBC 5-10/hpf H Ur Squamous Epith Cells 1-5 /hpf Urine Bacteria Few (2-10) H Urine Mucus 1+ H Ur Culture Indicated? Specimen cultured COVID-19 PCR Negative 08/10/20 08/10/20 08/10/20 04:45 04:45 04:45 WBC 14.9 H RBC 4.31 Hgb 11.8 L Hct 36.1 MCV 83.8 MCH 27.4 MCHC 32.8 RDW 13.1 Plt Count 177 Neut % (Auto) 68.0 Lymph % (Auto) 15.0 L [place] % (Auto) 13.9 Eos % (Auto) 2.8 Baso % (Auto) 0.3 Neut # (Auto) 10222 H Lymph # (Auto) 2200 [place] # (Auto) 2100 H Eos # (Auto) 400 Baso # (Auto) 0 ESR Sodium 134 L Potassium 3.4 Chloride 104 Carbon Dioxide 29 BUN 14 Creatinine 0.84 Estimated GFR > 60.0 BUN/Creatinine Ratio 16.7 Glucose 115 H Lactate 0.8 Calcium 8.4 Magnesium 1.9 Total Bilirubin AST ALT Alkaline Phosphatase Total Creatine Kinase CK-MB (CK-2) CK-MB (CK-2) Rel Index Troponin I C-Reactive Protein Total Protein Albumin Globulin Albumin/Globulin Ratio Lipase Procalcitonin Urine RBC Urine WBC Ur Squamous Epith Cells Urine Bacteria Urine Mucus Ur Culture Indicated? COVID-19 PCR 08/10/20 04:45 WBC RBC Hgb Hct MCV MCH MCHC RDW Plt Count Neut % (Auto) Lymph % (Auto) [place] % (Auto) Eos % (Auto) Baso % (Auto) Neut # (Auto) Lymph # (Auto) [place] # (Auto) Eos # (Auto) Baso # (Auto) ESR Sodium Potassium Chloride Carbon Dioxide BUN Creatinine Estimated GFR BUN/Creatinine Ratio Glucose Lactate Calcium Magnesium Total Bilirubin AST ALT Alkaline Phosphatase Total Creatine Kinase 46 CK-MB (CK-2) TNP CK-MB (CK-2) Rel Index TNP Troponin I < 0.012 C-Reactive Protein Total Protein Albumin Globulin Albumin/Globulin Ratio Lipase Procalcitonin Urine RBC Urine WBC Ur Squamous Epith Cells Urine Bacteria Urine Mucus Ur Culture Indicated? COVID-19 PCR [facility] Medical History Anxiety Cerebral aneurysm Depression Fibromyalgia History of MRSA infection (2015) HTN (hypertension) Lupus Mini stroke (2017) Panic attacks PTSD (post-traumatic stress disorder) Shaw-Maurizio syndrome TIA (transient ischemic attack) Surgical History H/O left wrist surgery (~2015) History of arthroscopy of both knees History of hysterectomy History of incision and drainage (2015) History of total right hip arthroplasty Hx of bilateral cataract extraction Hx of cholecystectomy (09/2019) Hx of eye surgery (07/2019) Hx of tonsillectomy S/P coil embolization of cerebral aneurysm (11/15/12) Family History Father Leukemia Mother Ovarian cancer Social History household members: children Smoking Status: Former smoker alcohol intake: current Assessment & Plan Assessment & Plan narrative: Right hip cellulitis possible periprosthetic hip infection. She was febrile this morning she has improved somewhat today by noon. Cultures are pending from the right hip. I discussed her further with the hospitalist service Dr. webster she is currently on vancomycin. She has a CT scan of her chest and pelvis pending. At this point she appears to have a right hip cellulitis but has continued to be febrile. Unfortunately she is very intolerant of antibiotics. We will continue IV antibiotics and to monitor her clinically. Quality VTE Deep Vein Thrombosis/Pulmonary Embolism Present on Admission: No
--- NOTE | 2020-08-10 13:03 | CM.DANOTE ---
DCP/Assessment: Reviewed chart. Patient is a 65yr old female admitted to [facility] with fever. Patient had right SCOT on 07-05-[address] Escoto. No PCP listed. Primary payor is 1)[facility] 2)Medicaid. Met with patient this AM explained CM/SW role. Patient alert and oriented, resting in bed at time of visit. Patient reports that she would like to go home when medically stable. At this time it is unknown what d/c planning needs patient may need? Dr. Escoto unsure if long-term IV abx needed. Patient reports that she does have help at home from her daughter/Terra. Notified patient that CM team will follow closely for assistance with d/c planning. Blood cultures currently pending. PT/OT evaluations would be helpful when appropriate. P: Pending. ALPESH Chaparro Discharge Planning/Care Management CM Discharge Assessment Start: 08/10/20 12:59 Freq: Status: Active Protocol: Document 08/10/20 12:59 KJS (Rec: 08/10/20 13:03 KJS [id number]) Discharge Planning Assessment Assigned Grinding Room Inspector ALPESH Chaparro Contact Information Fidel Swartz (son) [phone] Advance Directives? No Advance Directives on File No History Provided By Patient,Medical Record Prior Living Arrangements House Household Members children Type of transporation used prior to Relies on Others admit Independent with ADL's No: Uses walker at baseline Is patient alert and oriented? Yes Needs Assistance With Meal Prep,Home Chores / Shopping Caregiver for Another No DME Already Rented / Owned FWW / Walker Comment Pending needs Additional Comment Anticipate home vs. SNF. Patient's preference is home. Patient has daughter that can care for her. Whiteboard Updated in Patient Room with Yes name and ext. # of Grinding Room Inspector Review Status In Process Next Review Type Continued Stay Review
[2020-08-10] MEDS: OXYCODONE IR 10 MG TABLET PO ×2 (14:26→19:49)
--- NOTE | 2020-08-10 16:15 | PM.PN.1 ---
Subjective Subjective Date Patient Seen: 08/10/20 Interval history: 65-year-old female status post right total hip replacement, history of hypertension who presents to the hospital with low-grade fevers myalgias and nausea. Patient also complains of right hip pain. Hip pain has been present since her surgery. She also notes when she bears weight on the right hip her leg gives out. Patient complained of chest pain earlier today, she also notes that she has had some nausea and emesis. She complains of a cough as well. Exam Vital Signs (past 8 hours): - 08/10/20 11:27 Temperature 99.3 F Pulse Rate 88 Respiratory Rate 16 Blood Pressure 127/68 Pulse Oximetry 100 Oxygen Delivery Method Room Air Oxygen Flow Rate 0 Narrative Exam Narrative: Pleasant female lying in bed in no obvious distress Lungs: Clear to auscultation Cardiac exam: Regular rate and rhythm normal S1-S2 with a 2/6 systolic ejection murmur Abdomen soft, mildly tender in the midepigastric region no palpable masses no rebound tender Extremities: Right hip mildly tender to palpation, no erythema, no wall, no fluctuance Lower extremity no edema Objective Labs Result Diagrams: 08/10/20 04:45 08/10/20 04:45 Labs: Laboratory Results - last 24 hr 08/09/20 08/09/20 08/09/20 16:21 19:42 20:20 WBC RBC Hgb Hct MCV MCH MCHC RDW Plt Count Neut % (Auto) Lymph % (Auto) [place] % (Auto) Eos % (Auto) Baso % (Auto) Neut # (Auto) Lymph # (Auto) [place] # (Auto) Eos # (Auto) Baso # (Auto) Sodium Potassium Chloride Carbon Dioxide BUN Creatinine Estimated GFR BUN/Creatinine Ratio Glucose Lactate Calcium Magnesium 1.9 Total Creatine Kinase CK-MB (CK-2) CK-MB (CK-2) Rel Index Troponin I Procalcitonin Urine RBC 0-1/hpf Urine WBC 5-10/hpf H Ur Squamous Epith Cells 1-5 /hpf Urine Bacteria Few (2-10) H Urine Mucus 1+ H Ur Culture Indicated? Specimen cultured COVID-19 PCR Negative 08/09/20 08/10/20 08/10/20 21:52 04:45 04:45 WBC RBC Hgb Hct MCV MCH MCHC RDW Plt Count Neut % (Auto) Lymph % (Auto) [place] % (Auto) Eos % (Auto) Baso % (Auto) Neut # (Auto) Lymph # (Auto) [place] # (Auto) Eos # (Auto) Baso # (Auto) Sodium Potassium Chloride Carbon Dioxide BUN Creatinine Estimated GFR BUN/Creatinine Ratio Glucose Lactate 0.8 Calcium Magnesium Total Creatine Kinase CK-MB (CK-2) CK-MB (CK-2) Rel Index Troponin I Procalcitonin 0.08 Urine RBC Urine WBC Ur Squamous Epith Cells Urine Bacteria Urine Mucus Ur Culture Indicated? COVID-19 PCR Negative 08/10/20 08/10/20 08/10/20 04:45 04:45 04:45 WBC 14.9 H RBC 4.31 Hgb 11.8 L Hct 36.1 MCV 83.8 MCH 27.4 MCHC 32.8 RDW 13.1 Plt Count 177 Neut % (Auto) 68.0 Lymph % (Auto) 15.0 L [place] % (Auto) 13.9 Eos % (Auto) 2.8 Baso % (Auto) 0.3 Neut # (Auto) 64352 H Lymph # (Auto) 2200 [place] # (Auto) 2100 H Eos # (Auto) 400 Baso # (Auto) 0 Sodium 134 L Potassium 3.4 Chloride 104 Carbon Dioxide 29 BUN 14 Creatinine 0.84 Estimated GFR > 60.0 BUN/Creatinine Ratio 16.7 Glucose 115 H Lactate Calcium 8.4 Magnesium 1.9 Total Creatine Kinase 46 CK-MB (CK-2) TNP CK-MB (CK-2) Rel Index TNP Troponin I < 0.012 Procalcitonin Urine RBC Urine WBC Ur Squamous Epith Cells Urine Bacteria Urine Mucus Ur Culture Indicated? COVID-19 PCR PFSH Medical History Anxiety Cerebral aneurysm Depression Fibromyalgia History of MRSA infection (2016) HTN (hypertension) Lupus Mini stroke (2018) Panic attacks PTSD (post-traumatic stress disorder) Shaw-Maurizio syndrome TIA (transient ischemic attack) Surgical History H/O left wrist surgery (~2015) History of arthroscopy of both knees History of hysterectomy History of incision and drainage (2015) History of total right hip arthroplasty Hx of bilateral cataract extraction Hx of cholecystectomy (09/2019) Hx of eye surgery (07/2019) Hx of tonsillectomy S/P coil embolization of cerebral aneurysm (11/15/12) Family History Father Leukemia Mother Ovarian cancer Social History household members: children Smoking Status: Former smoker alcohol intake: current Assessment & Plan Assessment & Plan narrative: 65-year-old female 4 weeks status post right total hip replacement admitted to the hospital for fever and probable hip infection -aspirate from the synovial fluid is growing Staph aureus -patient is currently on IV vancomycin -she has multiple drug allergies, multiple antibiotic allergies -will continue IV fluid, and IV vancomycin -will await culture and sensitivity, consider ID consult if bacteria is not sensitive to vancomycin -consider daptomycin depending on sensitivity -Dr. Escoto discussed possible I&D and or washout of the right hip given finding will defer to Ortho for further management Chest pain -EKG, cardiac in times are negative -CT of the chest abdomen and pelvis negative for source -continue antibiotics and IV fluids at this time Hypertension -continue losartan Will await culture and sensitivities for further recommendation Quality VTE Deep Vein Thrombosis/Pulmonary Embolism Present on Admission: No
--- NOTE | 2020-08-10 18:45 | PC.NURSE ---
febrile 101.7, administered tylenol and placed ice packs in her armpits. pt vomited after eating, administered reglan. will continue to monitor.
[2020-08-10] MEDS: FAMOTIDINE 20 MG TABLET 40 MG PO (21:02)
[2020-08-10] MEDS: SENNOSIDES 8.6 MG TABLET 17.2 MG PO (21:02)
[2020-08-10] MEDS: GABAPENTIN 100 MG CAPSULE PO (21:06)
--- NOTE | 2020-08-10 23:57 | PC.NURSE ---
Addendum entered by Talisha Castelan R.N. 08/11/20 06:22: Found in room moaning and crying again. States left LE pain is now again at 9/10. Pain is located in anterior vargas this time and radiating around leg to calf. Soft egg shaped mass palpated on anterior vargas. ISACC Frank, informed and inspected leg. Patient complains of increased pain when putting weight on leg. Medicated with Morphine and order received for Ativan for the spasm like pain. Addendum entered by Talisha Castelan R.N. 08/11/20 04:41: Patient now asleep. Addendum entered by Talisha Castelan R.N. 08/11/20 04:03: States pain has lessened and rates severity as 7/10 but still describes pain as pulsating. Medicated with Vistaril Addendum entered by Talisha Castelan R.N. 08/11/20 03:31: States pain is still 8/10 and tearful. Medicated with Morphine and almost immediately patient stopped crying and able to carry on conversation. Addendum entered by Talisha Castelan R.N. 08/11/20 02:41: Complaining of 8/10 spasm like pain in left LE; very tearful. Medicated with Oxycodone, left SCD removed and leg wrapped in warm blanket. Pulses intact and no area of firmness/redness noted. Original Note: Patient is alert and oriented. Breath sounds CTA with RA sat of 99%. HRR. Denies nausea but did have nausea/emesis on previous shift. BT present and is passing flatus. Denies dysuria, frequency or urgency with urination; urine is clear david/orange color. Able to move self in bed and is assisted to BSC with walker and 1 assist as has difficulty walking with weakness in right leg. Scattered abrasions on all extremities. Skin lightly pin on back; hx of Juan Daniel-Maurizio syndrome. Denies itching. Denies pain. Area of erythem anteriorly to well approximated right hip incision. Has chronic numbness along lateral aspect of right thigh. Wearing bilateral calf SCD's. Fall risk score is high and bed alarm is activated. On contact isolation as wound cx + for staph aureus; awaiting sensitivities.
[2020-08-11] VITALS (10 sets, daily range): BP systolic 82–119; BP diastolic 43–66; PULSE 78–95; RESP 16–17; TEMP 37–38.3; O2SAT 96–98
[2020-08-11] MEDS: OXYCODONE IR 10 MG TABLET PO ×3 (02:39→16:54)
[2020-08-11 03:15] LABS: Vancomycin Trough 5.9 ug/mL (10-20)
[2020-08-11] MEDS: VANCOMYCIN 1,000 MG/200 ML PIGGYBACK 200 MG IV (03:24)
[2020-08-11] MEDS: MORPHINE 2 MG/ML INJ IV ×2 (03:24→06:20)
[2020-08-11] MEDS: hydrOXYzine pamoate 25 MG CAPSULE 50 MG PO ×2 (04:01→19:27)
--- NOTE | 2020-08-11 06:14 | PM.EVENT ---
Event Note Date Patient Seen: 08/11/20 Time Patient Seen: 06:14 Event Note: Patient with complaint of LEFT lower leg cramping unrelieved with IV morphine or reglan. She is here with an infection of her right hip. She has been unable to wear an SCDs. Review of her chart indicates she is receiving enoxaparin for VTE prophylaxis and does not need to have SCDs, so these are discontinued. She does have a discrete swelling that is quite tender distal to her left knee and consideration should be made to either ultrasound it or have a CT of that leg to determine what it may be. I have given her po ativan 2 mg X 1 for the cramping.
[2020-08-11] MEDS: LORazepam 1 MG TABLET PO (06:37)
[2020-08-11] MEDS: SODIUM CHLORIDE 0.9% 1,000 ML 100 ML IV ×2 (06:39→19:26)
--- NOTE | 2020-08-11 08:09 | DI.US.S_ITS ---
PROCEDURE: US PERIPH VENOUS LOW EXTREM BI INDICATIONS: edema TECHNIQUE: Real-time imaging, as well as color and pulse Doppler interrogation, were performed of the deep veins of both legs from the inguinal ligament to the popliteal fossa. COMPARISON: None. FINDINGS: Right: The common femoral, femoral and popliteal veins are normally compressible, and free of intraluminal thrombus. Color and pulse Doppler demonstrate normal phasic intravascular flow. There is normal augmentation response to distal compression maneuver. Left: The common femoral, femoral and popliteal veins are normally compressible, and free of intraluminal thrombus. Color and pulse Doppler demonstrate normal phasic intravascular flow. There is normal augmentation response to distal compression maneuver. IMPRESSION: Negative for deep venous thrombosis. Dictated by: Rashel Bello M.D. on 08/11/2020 at 10:20 Approved by: Rashel Bello M.D. on 08/11/2020 at 10:21
[2020-08-11] MEDS: LOSARTAN 50 MG TABLET 100 MG PO (08:56)
[2020-08-11] MEDS: ENOXAPARIN 40 MG/0.4 ML SYRINGE SUBCUT (08:56)
[2020-08-11] MEDS: prednisoLONE OPHTH SUSP 1 DROPS EYE-BOTH ×3 (08:58→21:25)
[2020-08-11] MEDS: ASPIRIN EC 81 MG TABLET PO ×2 (08:58→21:24)
--- NOTE | 2020-08-11 09:04 | PM.PN.1 ---
Subjective Subjective Date Patient Seen: 08/11/20 Time Patient Seen: 09:04 Interval history: The patient reports that she is comfortable. Exam Vital Signs (past 8 hours): - 08/11/20 03:24 08/11/20 05:26 08/11/20 08:00 Temperature 98.7 F 99.6 F 100.9 F H Pulse Rate 90 95 H Respiratory Rate 16 16 Blood Pressure 119/65 107/66 Pulse Oximetry 98 96 08/11/20 08:56 Temperature Pulse Rate Respiratory Rate Blood Pressure 107/66 Pulse Oximetry Oxygen Delivery Method Room Air Oxygen Flow Rate 0 Narrative Exam Narrative: Patient is moving in bed without difficulty. Right hip wound shows minimal erythema in the lower portion of the wound. Calf is soft. Light touch and motion are intact in the right lower extremity. Length and rotation of the extremity appear appropriate Objective Labs Result Diagrams: 08/10/20 04:45 08/10/20 04:45 Labs: Laboratory Results - last 24 hr 08/11/20 02:30 Vancomycin Trough 5.9 L PFSH Medical History Anxiety Cerebral aneurysm Depression Fibromyalgia History of MRSA infection (2015) HTN (hypertension) Lupus Mini stroke (2017) Panic attacks PTSD (post-traumatic stress disorder) Shaw-Maurizio syndrome TIA (transient ischemic attack) Surgical History H/O left wrist surgery (~2015) History of arthroscopy of both knees History of hysterectomy History of incision and drainage (2015) History of total right hip arthroplasty Hx of bilateral cataract extraction Hx of cholecystectomy (09/2019) Hx of eye surgery (07/2019) Hx of tonsillectomy S/P coil embolization of cerebral aneurysm (11/15/12) Family History Father Leukemia Mother Ovarian cancer Social History household members: children Smoking Status: Former smoker alcohol intake: current Assessment & Plan Assessment & Plan narrative: The patient has grown a pansensitive Staph aureus from her hip aspirate. She is currently afebrile but it appears that she has at least a colonization on her total hip. Dr. Fatou Escoto, her operating surgeon, has already spoken to the patient regarding I and D of the hip with likely liner exchange. This surgery is planned for tomorrow. We will make the patient NPO after midnight. The patient understands and agrees. COVID-19 COVID-19 status: Negative Result date/Date tested (Pos, Neg/Pending): 08/09/20 Quality VTE Deep Vein Thrombosis/Pulmonary Embolism Present on Admission: No
[2020-08-11] MEDS: VANCOMYCIN 1,250 MG/250 ML PIGGYBACK 250 MG IV ×2 (10:04→19:25)
--- NOTE | 2020-08-11 10:40 | P.PN_ITS ---
Subjective Subjective Date Patient Seen: 08/11/20 Time Patient Seen: 10:48 Interval history: 65-year-old female status post right total hip replacement, history of hypertension who presents to the hospital with low-grade fevers myalgias and nausea. Hip aspirate now growing MSSA, but remains on IV vancomycin due to numerous reported antibiotic allergies including penicillin, ceftriaxone, and prior SJS. Fluoroquinolones not seemingly documented in the past but there is a risk of SJS, but there is also SJS risk from vancomycin as well. She feels better today, but now with LLE pain, US for DVT pending. Exam Vital Signs (past 8 hours): - 08/11/20 03:24 08/11/20 05:26 08/11/20 08:00 Temperature 98.7 F 99.6 F 100.9 F H Pulse Rate 90 95 H Respiratory Rate 16 16 Blood Pressure 119/65 107/66 Pulse Oximetry 98 96 08/11/20 08:56 08/11/20 10:20 Temperature Pulse Rate Respiratory Rate Blood Pressure 107/66 Pulse Oximetry 96 Oxygen Delivery Method Room Air Oxygen Flow Rate 0 Narrative Exam Narrative: GENERAL APPEARANCE: Well developed, well nourished, in no acute distress. SKIN: Inspection of the skin reveals no rashes, ulcerations or petechiae. HEENT: Normocephalic atraumatic, extraocular muscles are intact, oropharynx is clear and mucous membranes are moist, neck is supple without adenopathy NECK: Supple and symmetric. There was no thyroid enlargement, and no tenderness, or masses were felt. CHEST: Normal AP diameter and normal contour without any kyphoscoliosis. LUNGS: Auscultation of the lungs revealed no wheezes, rhonchi, or rales. CARDIOVASCULAR: There was a regular rate and rhythm without any murmurs, gallops, rubs. Peripheral pulses were 2+ and symmetric. ABDOMEN: Soft and nontender with normal bowel sounds. No ascites was noted. MUSCULOSKELETAL: Mild tenderness to right hip, minimal erythema over the inferior aspect of her incision, there is no induration EXTREMITIES: No cyanosis, clubbing or edema. + tenderness to left calf. NEUROLOGIC: Alert and oriented x 3. Normal affect. Strength is +5/5 in the Upper Extremities and Lower Extremities Bilaterally. Sensation to touch was normal. Objective Labs Result Diagrams: 08/10/20 04:45 08/10/20 04:45 Labs: Laboratory Results - last 24 hr 08/11/20 02:30 Vancomycin Trough 5.9 L PFSH Medical History Anxiety Cerebral aneurysm Depression Fibromyalgia History of MRSA infection (2016) HTN (hypertension) Lupus Mini stroke (2018) Panic attacks PTSD (post-traumatic stress disorder) Shaw-Maurizio syndrome TIA (transient ischemic attack) Surgical History H/O left wrist surgery (~2015) History of arthroscopy of both knees History of hysterectomy History of incision and drainage (2015) History of total right hip arthroplasty Hx of bilateral cataract extraction Hx of cholecystectomy (09/2019) Hx of eye surgery (07/2019) Hx of tonsillectomy S/P coil embolization of cerebral aneurysm (11/15/12) Family History Father Leukemia Mother Ovarian cancer Social History household members: children Smoking Status: Former smoker alcohol intake: current Assessment & Plan Assessment & Plan narrative: 65-year-old female 4 weeks status post right total hip replacement admitted to the hospital for fever and post operative wound infection. 1. R hip post operative wound infection, acute, present on admission. -aspirate from the synovial fluid is growing MSSA. -patient is currently on IV vancomycin due to multiple drug allergies, multi ple antibiotic allergies, will continue per pharmacy protocol. Currently with low trough this AM, dosing increased. -Dr. Escoto with orthopedic surgery plans for operative I&D tomorrow with possible liner exchange. -continue pain control 2. Chest pain, resolved -EKG, cardiac enzymes were negative -CT of the chest abdomen and pelvis negative for source 3. Hypertension, chronic -continue losartan 4. LLE calf pain, acute, not present on admission. - US DVT pending. Consider muscle spasm, no overlying erythema or warmth to suggest infection. Will continue to monitor. Dispo: admitted as inpatient, disposition pending orthopedic interventions after operating room tomorrow. COVID-19 COVID-19 status: Negative Quality VTE Deep Vein Thrombosis/Pulmonary Embolism Present on Admission: No
--- NOTE | 2020-08-11 11:27 | CM.DPNOTE ---
DCP Note: [facility]ed [facility], per MS LuceroW, after discussion at team rounds that patient may need home IV antibiotics. She is to be having surgical I&D tomorrow. Included face sheet, today's progress notes, labs, medication sheets, and H&P. Emma Colorado RN/Digital Community Manager
[2020-08-11] MEDS: ACETAMINOPHEN 325 MG TABLET 650 MG PO (16:10)
--- NOTE | 2020-08-11 20:50 | PC.NURSE ---
Pt declines use of scd's in bed.
[2020-08-11] MEDS: FAMOTIDINE 20 MG TABLET 40 MG PO (21:23)
[2020-08-11] MEDS: GABAPENTIN 100 MG CAPSULE PO (21:24)
[2020-08-11] MEDS: SENNOSIDES 8.6 MG TABLET 17.2 MG PO (21:24)
--- NOTE | 2020-08-11 22:36 | PC.NURSE ---
Pt febrile at start of shift, controlled w/ medication. Pain controllable, ranging from 0-7/10. Pt presents w/ anxiety r/t procedure tomorrow. Reassurance given and discussed. No cardiovascular distress, no respiratory distress. Pt otherwise stable through shift.
[2020-08-12] VITALS (19 sets, daily range): BP systolic 90–128; BP diastolic 44–79; PULSE 66–93; RESP 11–23; TEMP 35.8–38.3; O2SAT 92–100; BMI 39.6
--- NOTE | 2020-08-12 | DI.RAD.S_ITS ---
PROCEDURE: XR HIP W PEL IF DONE RT 2V INDICATIONS: POST OP RIGHT HIP I D TECHNIQUE: AP pelvis and lateral view of the right hip acquired. COMPARISON: [facility], REGGIE, XR HIP W PEL IF DONE RT 2V, 08/09/2020, 15:22. FINDINGS: Bones: Patient is status post right hip arthroplasty, with hardware components in expected positions. The hip joint appears congruent. The visualized bony structures appear intact. No gross hardware loosening or failure. Soft tissues: Overlying postoperative changes are noted. No suspicious soft tissue densities. IMPRESSION: Postsurgical changes in right hip soft tissue with anatomic hip alignment. No gross hardware loosening or failure. No acute fracture or dislocation. Dictated by: Estrada Kaminski M.D. on 08/12/2020 at 16:52 Approved by: Estrada Kaminski M.D. on 08/12/2020 at 16:53
[2020-08-12] MEDS: VANCOMYCIN 1,250 MG/250 ML PIGGYBACK 250 MG IV (02:44)
[2020-08-12] MEDS: OXYCODONE IR 10 MG TABLET PO ×2 (04:51→08:17)
[2020-08-12 05:28] LABS: Add Manual Diff / Slide Review NO; Basophils Absolute Auto 0 /uL (0-100); Basophils Percent Auto 0.4 % (0-2); Eosinophils Absolute Auto 700 /uL (0-450); Eosinophils Percent Auto 4.8 % (2-4); Hematocrit 31.2 % (36-46); Hemoglobin 10.4 g/dL (12.0-16.0); Lymphocytes Absolute Auto 2000 /uL (1100-4500); Lymphocytes Percent Auto 14.5 % (25-40); Mean Corpuscular HGB Conc 33.2 % (30-36); Mean Corpuscular Hemoglobin 27.5 PG (26-34); Mean Corpuscular Volume 82.8 fL (80-100); Monocytes Absolute Auto 2000 /uL (0-900); Monocytes Percent Auto 14.5 % (3-14); Neutrophils Absolute Auto 9000 /uL (1500-7000); Neutrophils Percent Auto 65.8 % (50-75); Platelet Count 160 X10^3/uL (150-400); Red Blood Cell Count 3.77 X10^6/uL (4.0-5.2); Red Cell Distribution Width 13.3 % (11.6-14.8); White Blood Cell Count 13.7 X10^3/uL (4.5-11.0)
[2020-08-12 05:38] LABS: BUN Creatinine Ratio 12.8 (6-22); Blood Urea Nitrogen 10 mg/dL (7-17); Calcium 8.2 mg/dL (8.4-10.2); Carbon Dioxide 26 mmol/L (22-32); Chloride 107 mmol/L (98-107); Estimated Glomerular Filt Rate > 60.0 mL/min (>60); Glucose 112 mg/dL (80-110); HEMOLYSIS < 15 (0-50); Potassium 3.6 mmol/L (3.4-5.1); Sodium 134 mmol/L (137-145)
--- NOTE | 2020-08-12 10:19 | PM.PN.1 ---
Subjective Subjective Date Patient Seen: 08/12/20 Time Patient Seen: 10:19 Interval history: 65-year-old female status post right total hip replacement, history of hypertension who presents to the hospital with low-grade fevers myalgias and nausea. Hip aspirate grew MSSA, but remains on IV vancomycin due to numerous reported antibiotic allergies including penicillin, ceftriaxone, and prior SJS. Fluoroquinolones not seemingly documented in the past but there is a risk of SJS, but there is also SJS risk from vancomycin as well. She feels better today, US yesterday was negative for DVT. Her R hip is sore, but denies fever, chills, nausea, vomiting. Plan for OR today with orthopedics for I&D. Exam Vital Signs (past 8 hours): - 08/12/20 07:00 08/12/20 07:29 08/12/20 08:00 Temperature 98.5 F Pulse Rate 77 77 Respiratory Rate 16 Blood Pressure 90/49 L 90/79 Pulse Oximetry 96 96 08/12/20 09:52 Temperature Pulse Rate 80 Respiratory Rate Blood Pressure 108/53 L Pulse Oximetry Oxygen Delivery Method Room Air Oxygen Flow Rate 0 Narrative Exam Narrative: GENERAL APPEARANCE: Well developed, well nourished, in no acute distress. SKIN: Inspection of the skin reveals no rashes, ulcerations or petechiae. HEENT: Normocephalic atraumatic, extraocular muscles are intact, oropharynx is clear and mucous membranes are moist, neck is supple without adenopathy NECK: Supple and symmetric. There was no thyroid enlargement, and no tenderness, or masses were felt. CHEST: Normal AP diameter and normal contour without any kyphoscoliosis. LUNGS: Auscultation of the lungs revealed no wheezes, rhonchi, or rales. CARDIOVASCULAR: There was a regular rate and rhythm without any murmurs, gallops, rubs. Peripheral pulses were 2+ and symmetric. ABDOMEN: Soft and nontender with normal bowel sounds. No ascites was noted. MUSCULOSKELETAL: Mild tenderness to right hip, minimal erythema over the inferior aspect of her incision, there is no induration EXTREMITIES: No cyanosis, clubbing or edema. + tenderness to left calf. NEUROLOGIC: Alert and oriented x 3. Normal affect. Strength is +5/5 in the Upper Extremities and Lower Extremities Bilaterally. Sensation to touch was normal. Objective Labs Result Diagrams: 08/12/20 05:10 08/12/20 05:10 Labs: Laboratory Results - last 24 hr 08/12/20 08/12/20 05:10 05:10 WBC 13.7 H RBC 3.77 L Hgb 10.4 L Hct 31.2 L MCV 82.8 MCH 27.5 MCHC 33.2 RDW 13.3 Plt Count 160 Neut % (Auto) 65.8 Lymph % (Auto) 14.5 L [place] % (Auto) 14.5 H Eos % (Auto) 4.8 H Baso % (Auto) 0.4 Neut # (Auto) 9000 H Lymph # (Auto) 2000 [place] # (Auto) 2000 H Eos # (Auto) 700 H Baso # (Auto) 0 Sodium 134 L Potassium 3.6 Chloride 107 Carbon Dioxide 26 BUN 10 Creatinine 0.78 Estimated GFR > 60.0 BUN/Creatinine Ratio 12.8 Glucose 112 H Calcium 8.2 L PFSH Medical History Anxiety Cerebral aneurysm Depression Fibromyalgia History of MRSA infection (2015) HTN (hypertension) Lupus Mini stroke (2017) Panic attacks PTSD (post-traumatic stress disorder) Shaw-Maurizio syndrome TIA (transient ischemic attack) Surgical History H/O left wrist surgery (~2015) History of arthroscopy of both knees History of hysterectomy History of incision and drainage (2015) History of total right hip arthroplasty Hx of bilateral cataract extraction Hx of cholecystectomy (09/2019) Hx of eye surgery (07/2019) Hx of tonsillectomy S/P coil embolization of cerebral aneurysm (11/15/12) Family History Father Leukemia Mother Ovarian cancer Social History household members: children Smoking Status: Former smoker alcohol intake: current Assessment & Plan Assessment & Plan narrative: 65-year-old female 4 weeks status post right total hip replacement admitted to the hospital for fever secondary to post operative wound infection. 1. R hip post operative wound infection, acute, present on admission. -aspirate from the synovial fluid is growing MSSA. -patient is currently on IV vancomycin due to multiple drug allergies, multiple antibiotic allergies, will continue per pharmacy protocol. Consider IV vancomycin for duration of therapy after orthopedic interventions, other options to possibly include a fluoroquinolone as it does not appear that she has been on one previously, however if there is need for prolonged IV therapy vancomycin is likely her safest option. -Dr. Escoto with orthopedic surgery plans for operative I&D today with possible liner exchange. -continue pain control 2. Chest pain, resolved -EKG, cardiac enzymes were negative -CT of the chest abdomen and pelvis negative for source 3. Hypertension, chronic -continue losartan 4. LLE calf pain, acute, not present on admission, resolved - US DVT negative. Likely muscle spasm, now improved. Dispo: admitted as inpatient, disposition pending orthopedic interventions. Quality VTE Deep Vein Thrombosis/Pulmonary Embolism Present on Admission: No
--- NOTE | 2020-08-12 10:52 | PC.NURSE ---
Day shift note: Vancomycin through collected by this RN at 1038 and sent to Lab. Awaiting level before admin. Patient off floor to surgery at 1045, Yudelka LOMBARDI made aware regarding Vancomycin scheduled time.
--- NOTE | 2020-08-12 10:57 | PM.PN.1 ---
Subjective Subjective Date Patient Seen: 08/12/20 Time Patient Seen: 10:57 Interval history: She notes that she was doing okay overnight. She got a shower yesterday she has some but not incapacitating hip pain. Her nausea slightly improved. Exam Vital Signs (past 8 hours): - 08/12/20 07:00 08/12/20 07:29 08/12/20 08:00 Temperature 98.5 F Pulse Rate 77 77 Respiratory Rate 16 Blood Pressure 90/49 L 90/79 Pulse Oximetry 96 96 08/12/20 09:52 08/12/20 10:52 Temperature 101.0 F H Pulse Rate 80 79 Respiratory Rate 15 Blood Pressure 108/53 L 97/57 L Pulse Oximetry 97 Oxygen Delivery Method Room Air Oxygen Flow Rate 0 Narrative Exam Narrative: She is alert she is oriented her wound has really minimal erythema no active drainage, she has mild pain with range of motion in her hip Objective Labs Result Diagrams: 08/12/20 05:10 08/12/20 05:10 Labs: Laboratory Results - last 24 hr 08/12/20 08/12/20 05:10 05:10 WBC 13.7 H RBC 3.77 L Hgb 10.4 L Hct 31.2 L MCV 82.8 MCH 27.5 MCHC 33.2 RDW 13.3 Plt Count 160 Neut % (Auto) 65.8 Lymph % (Auto) 14.5 L [place] % (Auto) 14.5 H Eos % (Auto) 4.8 H Baso % (Auto) 0.4 Neut # (Auto) 9000 H Lymph # (Auto) 2000 [place] # (Auto) 2000 H Eos # (Auto) 700 H Baso # (Auto) 0 Sodium 134 L Potassium 3.6 Chloride 107 Carbon Dioxide 26 BUN 10 Creatinine 0.78 Estimated GFR > 60.0 BUN/Creatinine Ratio 12.8 Glucose 112 H Calcium 8.2 L PFSH Medical History Anxiety Cerebral aneurysm Depression Fibromyalgia History of MRSA infection (2015) HTN (hypertension) Lupus Mini stroke (2018) Panic attacks PTSD (post-traumatic stress disorder) Shaw-Maurizio syndrome TIA (transient ischemic attack) Surgical History H/O left wrist surgery (~2016) History of arthroscopy of both knees History of hysterectomy History of incision and drainage (2015) History of total right hip arthroplasty Hx of bilateral cataract extraction Hx of cholecystectomy (09/2019) Hx of eye surgery (07/2019) Hx of tonsillectomy S/P coil embolization of cerebral aneurysm (11/15/12) Family History Father Leukemia Mother Ovarian cancer Social History household members: children Smoking Status: Former smoker alcohol intake: current Assessment & Plan Assessment & Plan narrative: Right hip in flexion. 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 Serious nature of the problem options risks benefits and complications were discussed in great detail with the patient. She had an aspiration from her wound and subcutaneous tissues it was sent as a synovial aspiration in order to optimize handling of the specimen in the lab. It is currently growing a Staph aureus. I have recommended irrigation and debridement. The plan is to open the wound irrigated and debrided as needed and assess whether the infection does in fact track down into the joint. I have reviewed her postoperative course in detail. The patient had some fevers about 2 weeks after surgery associated with a cough which precipitated a COVID workup which was negative. She then noted that she still had her agnieszka an and was having a little irritation around her wound and she was seen for staple removal. The wound had some erythema but was otherwise benign but the patient continue to note fevers and she was referred to the emergency room. I explained tear this may represent a deep periprosthetic infection which would mean that we would need to do a full and extensive irrigation and debridement and possible placement of an antibiotic spacer which would subsequently require that we do a second-stage implantation. I also explained that she may require prolonged IV antibiotics. We will work on getting a PICC line placed. Serious nature of the procedure options risks benefits and complications including possibility of long-term infection long-term restrictions and long-term problems was discussed in detail. She understands and agrees. Quality VTE Deep Vein Thrombosis/Pulmonary Embolism Present on Admission: No
[2020-08-12 11:09] LABS: Vancomycin Trough 14.3 ug/mL (10-20)
--- NOTE | 2020-08-12 12:02 | PM.OP.1 ---
Operative Date/Time/Diagnoses Date of procedure: 08/12/20 Time of procedure: 12:10 Pre-op diagnosis: Right hip infection with history of recent right total hip arthroplasty Post-op diagnosis: same Procedure & Clinicians Procedure: Right hip irrigation and debridement, femoral head and polyethylene exchange with revision of femoral head and acetabular polyethylene Same procedure as scheduled: Yes Indications: She has a history of a right total hip arthroplasty. She was having some problems with fevers and chills an aspiration of her wound and subcutaneous tissue screw Staph aureus. She is brought to the operating. Room for irrigation and debridement and revision of components or placement of antibiotic spacer as needed. The risks, benefits and alternatives to surgery were discussed with the patient prior to proceeding. Risks discussed included, but were not limited to, failure to relieve pain, leg length discrepancy, dislocation, stiffness, infection, nerve damage, deep venous thrombosis, pulmonary embolism, stroke, coma, heart attack, permanent paralysis and , as well as the potential need for eventual revision of the prosthesis or multiple operations to treat infection. Surgeon: Fatou Escoto Mortician Supplies Sales Representative: Darby Constantino Anesthesia Type: General Operative Notes Findings: Superficial infection which tracked down to the fascia. No obvious break in the fascia. No gross pus. Encapsulated fluid collection in the subcutaneous tissues. No obvious deep infection but anticipated deep fluid. Closure Type: primary Specimen(s): other (Multiple cultures) Prosthetic devices, grafts, tissues, transplants, or devices: Size 36 x 52 acetabulum, 36+ 0 cobalt chrome head Applied: drain(s) Estimated Blood Loss (mL): 250 Blood products transfused: none Procedure in detail: The patient was seen in the pre-operative area, where the patient identified the right hip as the operative site and this was marked with my initials. The patient received pre-operative antibiotics and was taken to the operating room and placed on the operative table in the left lateral decubitus position after satisfactory anesthesia. A safe deposit box rental clerk out was performed. The right leg was prepared from the ankle to the iliac crest with ChloroPrep in the usual fashion and draped through sterile drapes. The hip was approached through an approximately 20 cm incision centered over the greater trochanter and curving gently posteriorly as it went proximally. The patient's previous surgical incision was used and I resected it the incision site and debrided the subcutaneous tissues. Next I tracked down along the track into the subcutaneous tissues along the incision site. There was an encapsulated subcutaneous soft tissue area that looked consistent with a possible subcutaneous hematoma site it did have a significant amount of fluid in it. The fluid was sent for Gram stain culture and sensitivity and cell count. superficial cultures were taken. The entire encapsulated Th area in the subcutaneous tissues which was superficial to the fascia was meticulously debrided and removed. It was then retracted with a self retaining retractor. After the entire wound had been carefully cleaned I then irrigated with pulse lavage a total of more than 3 L. next an 18 gauge needle was placed deep to the fascia and fluid was aspirated approximately 20 cc which was clear with no evidence of purulence. It was felt that it was very important to check to make sure that she did not have a deep wound infection and several of the stitches were removed there was fluid down at the joint level but no obvious purulence. Next, The trochanteric bursa was excised with care being taken to avoid the sciatic nerve, which was identified and protected throughout the case. Deep tissue was debrided and sent for deep culture and sensitivity. There was no obvious infected tissue or evidence of purulence. The patient was felt to be somewhat compromised host with potential contamination of the joint and it was felt that it was best to do a formal polyethylene exchange and head removal as well as meticulously screw scrubbing the residual components. The hip was dislocated, and The femoral head was removed. I specifically placed a femoral insertion device on the femur and meticulously checked to see whether there was evidence of loosening or with compression of there would be additional subsidence of the prosthesis. The femoral prosthesis appeared to be stable the and of years version appeared debris appropriate and the level was felt to be appropriate. There was not evidence of femoral loosening. I then debrided circumferentially around the femoral neck and proximal aspect of the prosthesis and then meticulously scrubbed the prosthesis with a combination of a lap and a scrub brush. Retractors were placed to expose the acetabulum. The neck was placed out of the way to allow access to the acetabular component. The polyethylene was removed. I then took deep cultures deep to the acetabulum. There did not appear to be evidence of infection or early loosening. The acetabulum then was then meticulously scrubbed with a brush and lap. 6 L of normal saline were then used to meticulously irrigate acetabulum femoral component and the joint. Vancomycin powder was placed around the acetabulum and a new polyethylene was placed. Trial reduction with a 0 and a +4 femoral head her with a +4 she had good stability leg lengths were symmetrical there is no posterior impingement at 90? she was stable to about 70? of internal rotation. A +8 neck length. [place] to be too long. The patient was stable in the position of sleep, of squatting, and could be put through a range of motion with 45 degrees internal rotation without dislocation. At 90 degrees flexion, internal rotation to 70? was possible before dislocation. This was felt to be satisfactory and the appropriate component was opened. Finally the femoral head was impacted onto the stem. The acetabulum was cleared of all material and the hip relocated one final time. The capsulomuscular flap was then repaired to the greater trochanter using the Monofilament PDS sutures. The short external rotators were repaired with a Monofilament PDS suture. A deep drain was placed and brought out anteriorly. The fascia kalie was closed with PDS. A subcutaneous drain was placed in vancomycin was placed both deep to the fascia and in the superficial space. The subcutaneous layer was closed with barbed sutures and Skin agnieszka. A the [place] dressing was applied and the patient was taken to recovery having tolerated the procedure well. Complications: none Post-operative Condition: stable Disposition: Acute Care Plan for aftercare: Continue IV antibiotics. Place PICC line. Weightbearing as tolerated right lower extremity. Posterior hip precautions. Check cultures. I anticipate she will need at least 3 weeks of IV antibiotics possibly 6 weeks of IV antibiotics.
[2020-08-12] MEDS: ACETAMINOPHEN IV 1,000 MG/100 ML VIAL 400 MG IV (13:00)
[2020-08-12] MEDS: LACTATED RINGERS 1,000 ML 42 ML IV (13:24)
[2020-08-12] MEDS: BUPIVACAINE 0.25% W/ EPI (PF) 10 ML VIAL 20 ML INJ (13:26)
[2020-08-12] MEDS: BUPIVACAINE LIPOSOME 266 MG/20 ML VIAL INJ (13:49)
[2020-08-12] MEDS: VANCOMYCIN 1,000 MG VIAL 1000 MG TOP (13:51)
[2020-08-12] MEDS: VANCOMYCIN 1,500 MG/300 ML PIGGYBACK 250 MG IV (14:00)
--- NOTE | 2020-08-12 14:43 | CM.DPC ---
DCP IV-Abx vs oral Per MD, pt scheduled for I&D today around 1115 for washout with Ortho and still unknown if pt will require keno terminal operator IV-Abx at d/c vs oral. SW spoke to [facility] pharmacist who confirms they received initial referral on pt with plan of IV-Vanco if IV-Abx needed. SW updated on pt currently being off the floor in surgery and unknown yet if orals or IV at d/c. [facility] confirms that they ran pt's insurance and with her Medicaid as secondary pt will not have any out of pocket expense if home infusion needed. SW attempted to meet bedside with pt to update on coverage for home infusion and discuss possible options pending likely PT initial eval to determine if safe for home at d/c but pt still off the floor in OR at 1500. Plan: SW to follow closely for likely PICC placement this weekend and likely need for PT eval after I&D today to determine if safe for home with possible IV-Abx. SW to keep [facility] updated. Lucero Calzada, ROVING HAND
[2020-08-12 15:04] LABS: Body Fluid Appearance CLOUDY; Body Fluid Clotted? NO CLOTS PRESENT; Body Fluid Color RED; Body Fluid Red Blood Cells 141577 /uL; Body Fluid Tot Nucleated Cells 1053 /uL
[2020-08-12 15:08] LABS: Body Fluid Appearance CLOUDY; Body Fluid Color RED; Mononuclear WBC Body Fluid 70 %; Polynuclear WBC Body Fluid 30 %
[2020-08-12 15:09] LABS: Body Fluid Clotted? NO CLOTS PRESENT; Body Fluid Red Blood Cells 212601 /uL; Body Fluid Tot Nucleated Cells 4186 /uL
[2020-08-12 15:10] LABS: Mononuclear WBC Body Fluid 20 %; Polynuclear WBC Body Fluid 80 %
[2020-08-12] MEDS: ONDANSETRON 4 MG/2 ML INJ IV (15:11)
[2020-08-12] MEDS: HYDROMORPHONE 2 MG INJ IV (15:11)
[2020-08-12] MEDS: hydrOXYzine pamoate 25 MG CAPSULE 50 MG PO (15:28)
[2020-08-12] MEDS: OXYCODONE IR 5 MG TABLET PO ×3 (15:28→21:34)
[2020-08-12] MEDS: LACTATED RINGERS 1,000 ML 125 ML IV (16:26)
[2020-08-12] MEDS: ACETAMINOPHEN 325 MG TABLET 650 MG PO ×2 (16:26→21:34)
[2020-08-12 17:07] LABS: Add Manual Diff / Slide Review NO; Basophils Absolute Auto 0 /uL (0-100); Basophils Percent Auto 0.2 % (0-2); Eosinophils Absolute Auto 0 /uL (0-450); Eosinophils Percent Auto 0.1 % (2-4); Hematocrit 31.2 % (36-46); Hemoglobin 10.3 g/dL (12.0-16.0); Lymphocytes Absolute Auto 600 /uL (1100-4500); Lymphocytes Percent Auto 5.8 % (25-40); Mean Corpuscular HGB Conc 33.1 % (30-36); Mean Corpuscular Hemoglobin 27.7 PG (26-34); Mean Corpuscular Volume 83.8 fL (80-100); Monocytes Absolute Auto 500 /uL (0-900); Neutrophils Absolute Auto 9400 /uL (1500-7000); Neutrophils Percent Auto 88.9 % (50-75); Platelet Count 178 X10^3/uL (150-400); Red Blood Cell Count 3.73 X10^6/uL (4.0-5.2); Red Cell Distribution Width 13.4 % (11.6-14.8); White Blood Cell Count 10.6 X10^3/uL (4.5-11.0)
[2020-08-12] MEDS: IBUPROFEN 400 MG TABLET PO ×2 (17:36→21:33)
[2020-08-12] MEDS: VANCOMYCIN 1,500 MG/300 ML PIGGYBACK 150 MG IV (19:18)
[2020-08-12] MEDS: ASPIRIN EC 81 MG TABLET PO (21:33)
[2020-08-12] MEDS: diphenhydrAMINE 25 MG TABLET 50 MG PO (21:33)
[2020-08-12] MEDS: DOCUSATE 100 MG CAPSULE PO (21:34)
--- NOTE | 2020-08-12 23:26 | PC.NURSE ---
Pt arrived on unit ~1600 post op. VSS, afebrile, controlled pain. Hemovac w/ 2 sites & PHILIPPE dressing. Site bruised and reddened and tender to touch. Pt needs to have reinforced teaching of posterior hip protocols. IS taught and repeat demonstration. Pain goal 6/10, pt reports pain between 4-8/10 through shift- medicated w/ scheduled and PRN pain relief, ice, and repositioning. Pt willing to wait until next dose of pain medication when asked, alternative PRN available. 1x assist w/ FWW to BSC for urination, voiding w/out difficulty.
[2020-08-13] MEDS: HYDROCODONE/ACET 5/325 TABLET 2 TAB PO ×2 (00:36→05:22)
[2020-08-13] MEDS: IBUPROFEN 400 MG TABLET PO ×6 (00:36→21:05)
[2020-08-13] MEDS: VANCOMYCIN 1,500 MG/300 ML PIGGYBACK 150 MG IV (02:26)
[2020-08-13] MEDS: LACTATED RINGERS 1,000 ML 125 ML IV (02:29)
[2020-08-13] MEDS: OXYCODONE IR 5 MG TABLET PO ×4 (02:29→21:05)
[2020-08-13 05:00] VITALS: BP 119/66; PULSE 56; RESP 18; TEMP 36.6; O2SAT 100
[2020-08-13 05:51] LABS: Add Manual Diff / Slide Review NO; Basophils Absolute Auto 0 /uL (0-100); Basophils Percent Auto 0.2 % (0-2); Eosinophils Absolute Auto 0 /uL (0-450); Eosinophils Percent Auto 0.1 % (2-4); Hematocrit 27.6 % (36-46); Hemoglobin 9.2 g/dL (12.0-16.0); Lymphocytes Absolute Auto 1200 /uL (1100-4500); Lymphocytes Percent Auto 10.7 % (25-40); Mean Corpuscular HGB Conc 33.4 % (30-36); Mean Corpuscular Hemoglobin 27.9 PG (26-34); Mean Corpuscular Volume 83.4 fL (80-100); Monocytes Absolute Auto 1300 /uL (0-900); Monocytes Percent Auto 11.6 % (3-14); Neutrophils Absolute Auto 8900 /uL (1500-7000); Neutrophils Percent Auto 77.4 % (50-75); Platelet Count 148 X10^3/uL (150-400); Red Blood Cell Count 3.31 X10^6/uL (4.0-5.2); Red Cell Distribution Width 13.3 % (11.6-14.8); White Blood Cell Count 11.5 X10^3/uL (4.5-11.0)
[2020-08-13 05:56] LABS: BUN Creatinine Ratio 17.5 (6-22); Blood Urea Nitrogen 11 mg/dL (7-17); Calcium 8.4 mg/dL (8.4-10.2); Carbon Dioxide 23 mmol/L (22-32); Chloride 109 mmol/L (98-107); Estimated Glomerular Filt Rate > 60.0 mL/min (>60); Glucose 131 mg/dL (80-110); HEMOLYSIS < 15 (0-50); Potassium 3.5 mmol/L (3.4-5.1); Sodium 136 mmol/L (137-145)
[2020-08-13 07:00] VITALS: BP 82/54; PULSE 54; RESP 16; TEMP 35.9; O2SAT 100
[2020-08-13 07:55] VITALS: BP 94/60; PULSE 55; RESP 16
[2020-08-13] MEDS: DOCUSATE 100 MG CAPSULE PO ×2 (08:09→20:59)
[2020-08-13] MEDS: ASPIRIN EC 81 MG TABLET PO ×2 (08:09→20:59)
[2020-08-13] MEDS: predniSONE 10 MG TABLET PO (08:09)
[2020-08-13] MEDS: ACETAMINOPHEN 325 MG TABLET 650 MG PO (08:10)
[2020-08-13] MEDS: CHLORTHALIDONE 25 MG TABLET PO (08:10)
[2020-08-13] MEDS: polyethylene glycoL 3350 17 GM POWD.PACK PO (08:11)
--- NOTE | 2020-08-13 09:52 | PM.PN.1 ---
Subjective Subjective Date Patient Seen: 08/13/20 Time Patient Seen: 09:52 Interval history: Patient is hospital day 5, POD# 1 s/p Right hip irrigation and debridement, femoral head and polyethylene exchange with revision of femoral head and acetabular polyethylene with Dr. Escoto. Pain has been controlled with Tylenol and Oxycodone. She was working with PT at time of exam. Voiding appropriately. Has been hypotensive this AM, losartan and clorthalidone currently being held by medicine. H&H today 9.2/27.6 with 100cc output from drain overnight. Intraoperative cultures are currently pending. Preoperative cultures grew pansensitive MSSA. Patient has had some lightheadedness and shakiness likely from hypotension. No complaints. Exam Vital Signs (past 8 hours): - 08/13/20 05:00 08/13/20 07:00 08/13/20 07:55 Temperature 97.9 F 96.6 F L Pulse Rate 56 L 54 L 55 L Respiratory Rate 18 16 16 Blood Pressure 119/66 82/54 L 94/60 Pulse Oximetry 100 100 Oxygen Delivery Method Room Air Oxygen Flow Rate 0 Narrative Exam Narrative: Pleasant 65 year old female resting in bed, alert and oriented in no acute distress. PHILIPPE dressing in place is CDI and functioning appropriately. Patient able to dorsiflex and plantar flex the ankle. Calves are soft, nontender. Area of erythema that has been present since admission continuing to improve. Objective Labs Result Diagrams: 08/13/20 05:33 08/13/20 05:33 Labs: Laboratory Results - last 24 hr 08/12/20 08/12/20 08/12/20 10:38 13:00 13:00 WBC RBC Hgb Hct MCV MCH MCHC RDW Plt Count Neut % (Auto) Lymph % (Auto) [place] % (Auto) Eos % (Auto) Baso % (Auto) Neut # (Auto) Lymph # (Auto) [place] # (Auto) Eos # (Auto) Baso # (Auto) Sodium Potassium Chloride Carbon Dioxide BUN Creatinine Estimated GFR BUN/Creatinine Ratio Glucose Calcium Fluid Color Red Red Fluid Appearance Cloudy Cloudy Fluid RBC 390981 [id number] [place] Tot Nucleated Cell 1053 4186 Fluid Polynuclear WBCs 30 80 Fluid Mononuclear WBCs 70 20 Fluid Eosinophils Not Reportable Not Reportable Fluid Other Cells Not Reportable Not Reportable Body Fluid Clot No clots present No clots present Vancomycin Trough 14.3 08/12/20 08/13/20 08/13/20 17:02 05:33 05:33 WBC 10.6 11.5 H RBC 3.73 L 3.31 L Hgb 10.3 L 9.2 L Hct 31.2 L 27.6 L MCV 83.8 83.4 MCH 27.7 27.9 MCHC 33.1 33.4 RDW 13.4 13.3 Plt Count 178 148 L Neut % (Auto) 88.9 H D 77.4 H Lymph % (Auto) 5.8 L 10.7 L [place] % (Auto) 5.0 11.6 Eos % (Auto) 0.1 L 0.1 L Baso % (Auto) 0.2 0.2 Neut # (Auto) 9400 H 8900 H Lymph # (Auto) 600 L 1200 [place] # (Auto) 500 1300 H Eos # (Auto) 0 0 Baso # (Auto) 0 0 Sodium 136 L Potassium 3.5 Chloride 109 H Carbon Dioxide 23 BUN 11 Creatinine 0.63 Estimated GFR > 60.0 BUN/Creatinine Ratio 17.5 Glucose 131 H Calcium 8.4 Fluid Color Fluid Appearance Fluid RBC Fld Tot Nucleated Cell Fluid Polynuclear WBCs Fluid Mononuclear WBCs Fluid Eosinophils Fluid Other Cells Body Fluid Clot Vancomycin Trough PFSH Medical History Anxiety Cerebral aneurysm Depression Fibromyalgia History of MRSA infection (2015) HTN (hypertension) Lupus Mini stroke (2017) Panic attacks PTSD (post-traumatic stress disorder) Shaw-Maurizio syndrome TIA (transient ischemic attack) Surgical History H/O left wrist surgery (~2015) History of arthroscopy of both knees History of hysterectomy History of incision and drainage (2015) History of total right hip arthroplasty Hx of bilateral cataract extraction Hx of cholecystectomy (09/2019) Hx of eye surgery (07/2019) Hx of tonsillectomy S/P coil embolization of cerebral aneurysm (11/15/12) Family History Father Leukemia Mother Ovarian cancer Social History household members: children Smoking Status: Former smoker alcohol intake: current Assessment & Plan Assessment & Plan narrative: -Patient is POD#1 s/p Right hip irrigation and debridement, femoral head and polyethylene exchange with revision of femoral head and acetabular polyethylene. -She is currently on Vancomycin Q8hrs. Preoperative cultures grew pansensitive MSSA however she has history of severe reaction to a variety of antibiotics in the past and the current plan is for her to be discharged on this for a duration of 3-6 weeks depending on her postoperative course. Pending intraoperative cultures. -She is to mobilize with PT today with posterior hip precautions. -Continue ASA 81mg BID and SCDs for DVT prophylaxis. -Discharge dependent on antibiotic arrangement. Patient lives in [place] and will need to check on availability of in home antibiotic infusion. Her daughter is available as yarn hauler. However if in home antibiotic is unavailable will likely require discharge to SNF. -Will need [address] Escoto outpatient for staple removal/wound check. Quality VTE Deep Vein Thrombosis/Pulmonary Embolism Present on Admission: No
--- NOTE | 2020-08-13 10:25 | PT.IIE ---
Current Diagnoses Cellulitis of right lower limb (08/09/20) Surgery Performed Operation Date: 08/12/20 11:15 Actual Procedures p Hip I & D, poly exchange(Right) - Fatou Escoto MD Surgical History (Last Reviewed 08/10/20 @ 10:00 by Sonny Rizvi PA-C) H/O left wrist surgery (~2015) History of arthroscopy of both knees History of hysterectomy History of incision and drainage (2015) History of total right hip arthroplasty Hx of bilateral cataract extraction Hx of cholecystectomy (09/2019) Hx of eye surgery (07/2019) Hx of tonsillectomy S/P coil embolization of cerebral aneurysm (11/15/12) Medical History (Last Reviewed 08/13/20 @ 09:59 by Darby Constantino PA-C) Anxiety Cerebral aneurysm Depression Fibromyalgia History of MRSA infection (2015) HTN (hypertension) Lupus Mini stroke (2017) Panic attacks PTSD (post-traumatic stress disorder) Shaw-Maurizio syndrome TIA (transient ischemic attack) Physical Therapy Inpatient Evaluation/Re-Eval M1 PT/OT-IP Prior Functional Status Start: 08/13/20 10:07 Freq: Status: Active Protocol: Document 08/13/20 09:35 MB (Rec: 08/13/20 10:24 MB [email or web address]) Medical Review Prior Functional Status Medical History Reviewed Yes Diet/Fluid Consistency Regular Communication WNLs Mobility and Gait Gait in small house with walker and daughter nearby, did not leave the house much Activities of Daily Living and IADL's Assst from daughter who is her paid caregiver and with whom she lives Prior Functional Level (Other details) Asst from daughter Social History Household Members children Living Arrangements House Number of Floors (Floors) One Floor Number of Stairs To Enter/Railing? 4 steps and two rails that she can reach to enter home Home Equipment Front Wheel Walker M2 PT-IP Current Condition Start: 08/13/20 10:07 Freq: Status: Active Protocol: Document 08/13/20 09:35 MB (Rec: 08/13/20 10:24 MB [email or web address]) Physical Therapy Current Condition Current Condition Evaluation Date 08/13/20 Treatment Diagnosis S/p I&D right hip Onset Date 08/12/2020 Precautions Posterior Hip Precautions No Hip Flexion > 90 degrees,No Hip Internal Rotation,No Hip Adduction Weight Bearing Status Weight Bearing Status Weight Bear as Tolerated M3 PT-IP Subjective Start: 08/13/20 10:07 Freq: Status: Active Protocol: Document 08/13/20 09:35 MB (Rec: 08/13/20 10:24 MB [email or web address]) Subjective Physical Therapy Visit Type Type Initial Evaluation Visit Start Time 09:35 Visit Stop Time 10:05 Total Visit Minutes 40 Number of CHIEF CLINICAL OFFICER Visits 0 Physical Therapy Visit Comments Patient Comments I have been getting up to the bathroom. Patient Goals To return home with daughter Therapy Pain Assessment Pain When Pain Assessed At Rest Pain Present Pain Present Pain Reported Location right hip Intensity 7 Scale Used Numeric (0 - 10) Description Pressure Pain Behaviors Holding Area Pain Management Techniques Distraction,Re-positioning M4 PT-IP Mobility and Gait Start: 08/13/20 10:07 Freq: Status: Active Protocol: Document 08/13/20 09:35 MB (Rec: 08/13/20 10:24 MB [email or web address]) PT-Bed Mobility Assessment Supine to Sit Supine to Sit Standby Assistance,1 Person Assistance,Head of Bed Elevated,Bedrails Scooting Scooting to Edge of Bed Standby Assistance PT-Transfer Assessment Sit to and From Stand Sit to and from Stand Contact Guard Assistance,1 Person Assistance,Use of Upper Extremities Equipment Transfer Assistive Device Gait Belt,Front Wheeled Walker Transfers Transfer Destination Chair Transfer Technique Gait Transfer Ability Level of Assist Contact Guard Assistance Comments Mobility Comments Cues for hand placement: to push up from the bed with the left hand and not to put both hands on the walker. Cues for sitting: to make sure that the back of her left thigh is touching the recliner and that she reaches back with her left hand before sitting. All these cues to improve safety and decrease fall risk while protection with post-op right leg Gait Assessment Gait Gait Assistance Required: Contact Guard Assist Distance (Feet) 5 Able to Maintain Weight Bearing Status Yes During Gait Assistive Devices Assistive Device Gait Belt,Front Wheeled Walker Orthotic/Prosthetic Devices or Brace: No Gait Deviations General Gait Pattern Antalgic,Decreased Stride Length,Decreased Feet Clearance,Flexed Trunk,Wide Based Gait Factors Limiting Gait Function Factors Limiting Gait Function Decreased Strength,Pain,Poor Balance Comments Gait Comments 5'x6 with rolling walker from the bed to the window bench and back. Pt states that she does not want to walk out in the halls this morning. PT-Balance Assessment Sitting Balance and Reactions Static Sitting Balance Ability Fair Dynamic Sitting Balance Ability Fair Standing Balance and Reactions Static Standing Balance Ability Fair Dynamic Standing Balance Ability Fair Device Used rolling walker M5 PT-IP Objective Assessments Start: 08/13/20 10:07 Freq: Status: Active Protocol: Document 08/13/20 09:35 MB (Rec: 08/13/20 10:24 MB [email or web address]) Orientation Orientation/Cognition Level of Alertness Alert Orientation Name,Age,Birthday,Month,Date, Year,Day of Week,Place, Situation Language Function Ability No Deficits Noted Safety Awareness Decreased Safety Awareness Memory Description Short Term Impaired Comments Pt can recall 2/3 posterior hip precautions that she had from recent right THR, cues to recall no flexion over 90 deg Gross Range of Motion Upper Extremity ROM Assessment Within Functional Limits Lower Extremity ROM Assessment Right Impaired Impairments Pt reports fear of MMT right leg and demonstrates AP 65% range and HS 50% range and is able to move out to EOB with minimal use of her hands to help her right leg and is able to let right leg dangle with scooting EOB Strength Upper Extremity Strength Assessment Within Functional Limits Lower Extremity Strength Assessment Right Impaired Comments Strength Comments Deferred MMT right LE d/t fear of pain, LLE is functional Sensation Assessment Sensation Light Touch Intact M6 PT-IP Treatment Start: 08/13/20 10:07 Freq: Status: Active Protocol: Document 08/13/20 09:35 MB (Rec: 08/13/20 10:24 MB [email or web address]) Physical Therapy Treatment Exercises Exercises Ankle Pumps,Gluteal Sets,Quad Sets,Heel Slides Education Education Provided Precautions,Weight Bearing Status,Post-Op Packet,Safety M7 PT-IP Assessment and Plan Start: 08/13/20 10:07 Freq: Status: Active Protocol: Document 08/13/20 09:35 MB (Rec: 08/13/20 10:24 MB [email or web address]) PT Summary Assessment and Plan Potential Rehabilitation Potential Good Summary Impairments Pain,ROM,Strength,Balance, Transfers,Gait,Activity Tolerance Assessment Summary Pt is a 65 y/o female POD 1 after I&D infected right SCOT. She is WBAT and has posterior hip precautions per op note. This date, she reports high pain but is able to mobilize well in the bed, to the EOB, for transfers and gait. She self-limits mobility today d/t fear of pain. She has skin changes around her scalp and states that she had an allergic reaction to an antibiotic. Her right LE is very mildly edematous and no bruising distally, dressing and drain are intact. She anticipates d/t home with daughter. Recommend PT at d/c when, HHPT, and pt to have IV antibiotics at d/c. She will benefit from ongoing PT to improve mobility, stair training before d/c home, per PA-C, likely Saturday (2 days). BP and HR WNLs with PT today: 135/75, 77 when sitting up in the bed, taken in right UE. Goals Bed Mobility Goal Independent Transfer Goal Independent Gait Goal Independent,Front Wheel Walker Gait Distance 100 Other Goals Pt will ascend and descend 4 steps with 1-2 rails with SBA to allow safe entry into home by 08/15/2020. Days to Meet Goals 3 Frequency of Treatment Frequency Of Treatment Once a Day Treatment Plan Physical Therapy Treatment Plan Bed Mobility Training,Transfer Training,Gait Training, Therapeutic Exercise,Balance Retraining Other Recommendations and Next Treatment Gait in hallway and stair Focus training Recommendations To Nursing Amount of Assist Needed Standby Assistance,1 Person Assist Discharge Recommendations PT Discharge Recommendations Home with 08/04 Assist,Home Health Transportation Needs at Discharge Private Vehicle
--- NOTE | 2020-08-13 10:41 | DI.RAD.S_ITS ---
PROCEDURE: XR CHEST FOR PICC 1V INDICATIONS: picc placement COMPARISON: [facility], CR, XR CHEST 1V, 08/10/2020, 7:17. FINDINGS: Exam limited given technique and patient rotation. Left-sided PICC line is noted with the tip overlying the expected location of the superior aspect of the superior vena cava. No focal consolidation, pneumothorax, or pleural effusion within limits of this exam. Cardiomediastinal silhouette is within normal limits. No evidence of an acute or suspicious osseous abnormality. Soft tissues are unremarkable. IMPRESSION: Tip of PICC projects to the area of the superior aspect of the superior vena cava. Dictated by: Alonzo Butler D.O. on 08/13/2020 at 11:26 Approved by: Alonzo Butlre D.O. on 08/13/2020 at 11:28
[2020-08-13] MEDS: VANCOMYCIN TROUGH 1 REQUEST MISC (11:12)
[2020-08-13 11:17] VITALS: BP 125/72; PULSE 73; RESP 16; TEMP 36.6; O2SAT 100
[2020-08-13] MEDS: VANCOMYCIN 1,250 MG/250 ML PIGGYBACK 250 MG IV ×2 (11:47→18:37)
[2020-08-13 11:51] LABS: Vancomycin Trough 21.7 ug/mL (10-20)
--- NOTE | 2020-08-13 12:09 | CM.DPC ---
DCP continued: EMR reviewed: GORDY/RN talked with Dr. Landaverde during AM rounds and was told patient will more then likely go home saturday needing 3 to 6 weeks of IV Vanco 3x a day. Called [facility] at [facility] [phone] to check to see if they will be able to cover patients IV ABX infusions 3x a day. Dell stated it is not a problem and they will be able to cover patient since she lives in [facility]. Updated dell and let him know patient will more then likely D/c saturday. Spoke with patient at the bed side and explained role. Patient was alert and oriented x4 during visit. patient stated she would like to go home with her LAUREN caregiver (her Daughter Shayna who she lives with). patient stated that she and her daughter would feel comfortable doing IV infusions at home but are willing to go to SNF if absolutely necessary. Spoke with pharmacist with [facility] and she requested MAR to see current dosage of patients Vanco and Labs that have been drawn for patient be faxed to [phone].... GORDY/RN faxed requested clinicals to [facility]... they should be ready for D/C on saturday. please let them know when D/C order is in as well as send them the RX as soon as it is ready so they can prep for patient. GORDY/Rn spoke to patient and updated her on the D/c plan. patient stated understanding and agrees with D/C plan. Colleen sierra RN
--- NOTE | 2020-08-13 13:20 | P.PN_ITS ---
Subjective Subjective Date Patient Seen: 08/13/20 Interval history: Fany Swartz is a 65-year-old female with a past medical history significant for hypertension, GERD, refractory uveitis on prednisone, and recent right total hip replacement 4 weeks prior to admission who presented to the ED with fever and right hip pain. The patient is resting in bed comfortably. She is elated that [facility] has been approved and able to accommodate vancomycin infusion 3 times daily. She endorses mild right hip pain that is improved and controlled with pain medications. She has no other complaints and denies headache, shortness of breath, chest pain, abdominal pain, nausea, vomiting, fever, chills, dysuria, diarrhea or constipation. She is voiding and eliminating without difficulty. She is up ambulating with assistance. Exam Vital Signs (past 8 hours): - 08/13/20 07:00 08/13/20 07:55 08/13/20 11:17 Temperature 96.6 F L 97.8 F Pulse Rate 54 L 55 L 73 Respiratory Rate 16 16 16 Blood Pressure 82/54 L 94/60 125/72 Pulse Oximetry 100 100 Oxygen Delivery Method Room Air Oxygen Flow Rate 0 Narrative Exam Narrative: General: Elderly female lying in bed and in no acute distress, appears older than stated age and chronically ill, well-developed, well-nourished, mildly anxious otherwise appropriately interactive. HEENT: Normocephalic, atraumatic. External ears without defect. Pupils equal, round, and reactive to light. Anicteric sclerae, moist conjunctivae, and no lid lag. Oropharynx free of erythema and cobble stoning with moist mucosa. Neck: Supple with full range of motion. No lymphadenopathy or thyromegaly. Cardiovascular: Regular rate and rhythm without murmurs, rubs, or gallops appreciated. Pulmonary: Clear to auscultation bilaterally without crackles, wheezes, or r honchi. Normal respiratory effort with no use of accessory muscles. Abdomen: Soft, obese, bowel sounds present, nontender, nondistended. No hepatosplenomegaly or masses appreciated. Extremities: No clubbing, cyanosis, or edema. Right hip with dressing in place C/D/I with Hemovac drain in place with minimal serosanguineous drainage. Skin: Normal temperature, turgor, and texture; no rash, ulcers, or subcutaneous nodules appreciated. Neurological: Cranial nerves grossly intact. Psychiatric: Normal mood and affect. Alert and oriented to person, place, and time. Objective Labs Result Diagrams: 08/13/20 05:33 08/13/20 05:33 Labs: Laboratory Results - last 24 hr 08/12/20 08/12/20 08/12/20 13:00 13:00 17:02 WBC 10.6 RBC 3.73 L Hgb 10.3 L Hct 31.2 L MCV 83.8 MCH 27.7 MCHC 33.1 RDW 13.4 Plt Count 178 Neut % (Auto) 88.9 H D Lymph % (Auto) 5.8 L Winkler % (Auto) 5.0 Eos % (Auto) 0.1 L Baso % (Auto) 0.2 Neut # (Auto) 9400 H Lymph # (Auto) 600 L Winkler # (Auto) 500 Eos # (Auto) 0 Baso # (Auto) 0 Sodium Potassium Chloride Carbon Dioxide BUN Creatinine Estimated GFR BUN/Creatinine Ratio Glucose Calcium Fluid Color Red Red Fluid Appearance Cloudy Cloudy Fluid RBC 807795 [id number] Fld Tot Nucleated Cell 1053 4186 Fluid Polynuclear WBCs 30 80 Fluid Mononuclear WBCs 70 20 Fluid Eosinophils Not Reportable Not Reportable Fluid Other Cells Not Reportable Not Reportable Body Fluid Clot No clots present No clots present Vancomycin Trough 08/13/20 08/13/20 08/13/20 05:33 05:33 10:45 WBC 11.5 H RBC 3.31 L Hgb 9.2 L Hct 27.6 L MCV 83.4 MCH 27.9 MCHC 33.4 RDW 13.3 Plt Count 148 L Neut % (Auto) 77.4 H Lymph % (Auto) 10.7 L Winkler % (Auto) 11.6 Eos % (Auto) 0.1 L Baso % (Auto) 0.2 Neut # (Auto) 8900 H Lymph # (Auto) 1200 Winkler # (Auto) 1300 H Eos # (Auto) 0 Baso # (Auto) 0 Sodium 136 L Potassium 3.5 Chloride 109 H Carbon Dioxide 23 BUN 11 Creatinine 0.63 Estimated GFR > 60.0 BUN/Creatinine Ratio 17.5 Glucose 131 H Calcium 8.4 Fluid Color Fluid Appearance Fluid RBC Fld Tot Nucleated Cell Fluid Polynuclear WBCs Fluid Mononuclear WBCs Fluid Eosinophils Fluid Other Cells Body Fluid Clot Vancomycin Trough 21.7 H* [facility] Medical History Anxiety Cerebral aneurysm Depression Fibromyalgia History of MRSA infection (2016) HTN (hypertension) Lupus Mini stroke (2018) Panic attacks PTSD (post-traumatic stress disorder) Shaw-Maurizio syndrome TIA (transient ischemic attack) Surgical History H/O left wrist surgery (~2015) History of arthroscopy of both knees History of hysterectomy History of incision and drainage (2015) History of total right hip arthroplasty Hx of bilateral cataract extraction Hx of cholecystectomy (09/2019) Hx of eye surgery (07/2019) Hx of tonsillectomy S/P coil embolization of cerebral aneurysm (11/15/12) Family History Father Leukemia Mother Ovarian cancer Social History household members: children Smoking Status: Former smoker alcohol intake: current Assessment & Plan Assessment & Plan narrative: Fany Swartz is a 65-year-old female with a past medical history significant for hypertension, GERD, refractory uveitis on prednisone, and recent right total hip replacement 4 weeks prior to admission who presented to the ED with fever and right hip pain. 1. Acute postoperative right hip infection, in setting of recent total right hip arthroplasty, present on admission. Active. -Patient presented with fever and right hip pain with associated abdominal pain, nausea and vomiting. -Synovial fluid aspirate grew MSSA. -Continue vancomycin with dosing per pharmacist to treat MSSA as patient has multiple drug allergies including Juan Daniel Maurizio syndrome for 3 weeks minimum and per orthopedic surgery. -Consulted Orthopedic surgery, Dr. Escoto, who performed right hip irrigation and debridement, femoral head and polyethylene exchange with revision of femoral head and acetabular polyethylene. Continue postoperative management per Orthopedic surgery. Continue weight-bearing as tolerated on right lower extremity and posterior hip precautions. Continue VTE prophylaxis with aspirin 81 mg twice daily. -Continue pain control with acetaminophen 975 mg 3 times daily and oxycodone 5 mg every 3 hours as needed for moderate to severe pain. 2. Acute chest pain, not present on admission. Resolved. -EKG EKG demonstrated sinus rhythm without acute ischemic changes such as ST elevation or depression. Troponin negative < 0.012. -CT chest, abdomen and pelvis with contrast was unremarkable and negative for any acute process. -Possibly secondary to GERD and continue H2 antagonist as below. 3. Hypertension, chronic, present on admission. Stable. -Held home chlorthalidone and losartan postoperatively to prevent hypotension. Continue to monitor blood pressure closely and will restart as blood pressure allows. 4. Acute left lower extremity pain, not present on admission. Resolved. -Venous Doppler ultrasound of left lower extremity negative for DVT. Left lower extremity pain was likely due to muscle spasm which has resolved. 5. GERD, chronic, present on admission. Stable. -Continue home famotidine 40 mg daily at bedtime. 6. Refractory uveitis, chronic, present admission. Stable. -Patient is higher risk of infection and delayed wound healing due to chronic glucocorticoid use. -Continue home prednisolone eye drops and prednisone 10 mg daily. Continue outpatient follow-up with ophthalmology. 7. Morbid obesity, chronic, present on admission. Stable. -BMI 39.7. -Due to morbid obesity patient has high risk of complication and wound healing. Code status: Full code VTE prophylaxis: ASA, SCDs Disposition: Patient likely to discharge home on Saturday with [facility] for continued IV antibiotics for 3-6 weeks per Ortho. Quality VTE Deep Vein Thrombosis/Pulmonary Embolism Present on Admission: No
[2020-08-13] MEDS: ACETAMINOPHEN 325 MG TABLET 975 MG PO ×2 (14:00→21:00)
[2020-08-13 15:51] VITALS: BP 113/71; PULSE 65; RESP 17; TEMP 36.9; O2SAT 100
--- NOTE | 2020-08-13 18:04 | PC.NURSE ---
Addendum entered by Emelia Gordon R.N. 08/13/20 22:32: Pt resting quietly at this time. PHILIPPE dsg CDI IVF infusing as per orders. PICC line intact/patent. Relatively uneventful evenig. Call light w/in reach, bed alarm on for pt safety. Continue w/plan of care. Addendum entered by Emelia Gordon R.N. 08/13/20 22:11: Pt mmed for discomfort @ 2130 w/good Original Note: Pt awake/oriented, watching TV Lungs clear, SpO2 96% RA PHILIPPE dsg to right hip area CDI. Second hemavac appears to have no suction. Recieved order to D/C. D/C'd intact. HL IDALIA PICC intact/patent. IS to 1500 w/o incidence. Call light w/in reach, bed alarm on for pt safety.
[2020-08-13 20:11] VITALS: BP 120/67; PULSE 69; RESP 16; TEMP 37.1; O2SAT 100
[2020-08-13] MEDS: FAMOTIDINE 20 MG TABLET 40 MG PO (20:59)
[2020-08-13] MEDS: GABAPENTIN 100 MG CAPSULE PO (20:59)
[2020-08-14] VITALS (7 sets, daily range): BP systolic 112–149; BP diastolic 62–79; PULSE 59–75; RESP 14–18; TEMP 36.4–36.9; O2SAT 96–100
[2020-08-14] MEDS: OXYCODONE IR 5 MG TABLET PO ×5 (00:45→15:56)
[2020-08-14] MEDS: IBUPROFEN 400 MG TABLET PO ×3 (00:46→08:47)
--- NOTE | 2020-08-14 02:32 | PC.NURSE ---
Pt requested her prescription eye drops. No current orders were found in her MAR. A DC'ed order for prednisolone drops was seen in the order history. MANPREET Camacho was informed and will look into reordering for this patient. Pt was very aggravated that she did not have the drops available.
[2020-08-14] MEDS: VANCOMYCIN 1,250 MG/250 ML PIGGYBACK 100 MG IV (03:29)
--- NOTE | 2020-08-14 03:46 | PC.NURSE ---
Pt requested her eyedrops at about 0200, nurse informed pt that they were not on her MAR so will contact hospitalist to find out why was DC'd, pt reports that she was getting them every day until yesterday and needs them for eyeritis issues to prevent flare ups. The hospitals was informed of pt request and hospitals told nurse she would look into why it was canceled, see other note... Nurse went into pt room for pt check about 0330 and pt was insists that she has been waiting for 3 hours to find out where her eye drops went and she states that she is feeling very stressed and does not want to be bothered again and would wait to get eye drops with her morning meds or pt states it would be ok to wait until she goes home on Saturday. Pt requested that we do not disturb her again and would like to get some sleep. Nurse placed do not disturb sign on door
[2020-08-14 05:48] LABS: Add Manual Diff / Slide Review NO; Basophils Absolute Auto 0 /uL (0-100); Basophils Percent Auto 0.4 % (0-2); Eosinophils Absolute Auto 100 /uL (0-450); Eosinophils Percent Auto 0.6 % (2-4); Hematocrit 25.9 % (36-46); Hemoglobin 8.8 g/dL (12.0-16.0); Lymphocytes Absolute Auto 2200 /uL (1100-4500); Lymphocytes Percent Auto 19.9 % (25-40); Mean Corpuscular HGB Conc 33.8 % (30-36); Mean Corpuscular Volume 82.9 fL (80-100); Monocytes Absolute Auto 1400 /uL (0-900); Monocytes Percent Auto 12.8 % (3-14); Neutrophils Absolute Auto 7400 /uL (1500-7000); Neutrophils Percent Auto 66.3 % (50-75); Platelet Count 167 X10^3/uL (150-400); Red Blood Cell Count 3.12 X10^6/uL (4.0-5.2); Red Cell Distribution Width 13.3 % (11.6-14.8); White Blood Cell Count 11.1 X10^3/uL (4.5-11.0)
[2020-08-14 05:59] LABS: Alanine Aminotransferase 14 IU/L (<35); Albumin 2.3 g/dL (3.5-5.0); Albumin Globulin Ratio 0.8 (1.0-2.8); Alkaline Phosphatase 67 U/L (38-126); Aspartate Aminotransferase 30 IU/L (14-36); BUN Creatinine Ratio 13.6 (6-22); Bilirubin Total 0.4 mg/dL (0.2-1.3); Blood Urea Nitrogen 8 mg/dL (7-17); Calcium 8.2 mg/dL (8.4-10.2); Carbon Dioxide 30 mmol/L (22-32); Chloride 109 mmol/L (98-107); Estimated Glomerular Filt Rate > 60.0 mL/min (>60); Glucose 88 mg/dL (80-110); HEMOLYSIS < 15 (0-50); Potassium 3.3 mmol/L (3.4-5.1); Sodium 139 mmol/L (137-145); Total Protein 5.3 g/dL (6.3-8.2)
[2020-08-14 06:21] LABS: Procalcitonin 0.09 ng/mL (<0.5)
[2020-08-14] MEDS: prednisoLONE OPHTH SUSP 1 DROPS EYE-BOTH ×3 (08:43→20:31)
[2020-08-14] MEDS: DOCUSATE 100 MG CAPSULE PO ×2 (08:47→20:30)
[2020-08-14] MEDS: ASPIRIN EC 81 MG TABLET PO ×2 (08:47→20:30)
[2020-08-14] MEDS: predniSONE 10 MG TABLET PO (08:47)
[2020-08-14] MEDS: ACETAMINOPHEN 325 MG TABLET 975 MG PO ×3 (08:48→20:29)
--- NOTE | 2020-08-14 09:37 | PC.NURSE ---
Addendum entered by Chelsea Montemayor R.N. 08/14/20 14:57: Patients vanco trough 21.5 today, Vancomycin decreased to 1gm, this has been infused through picc line, and patient tolerated well. Original Note: Assess- Patient is A&Ox3, she denies pain at this time. Enid dressing to R.hip is cdi. Hemvaco already taken out on previous shifts. Patient has slight edema to her lower extremities and states that she has some numbness from anterior hip to lower hip and then has feeling to the rest of her leg. This is not new for her and has been going on since she has had her original surgery. No hx of neuropathy. She ate 100% of her breakfast and is waiting for her pain medication at 0945.
--- NOTE | 2020-08-14 10:17 | P.PN_ITS ---
Subjective Subjective Date Patient Seen: 08/14/20 Time Patient Seen: 10:17 Interval history: Interval history: Patient is hospital day 6, POD# 2 s/p Right hip irrigation and debridement, femoral head and polyethylene exchange with revision of femoral head and acetabular polyethylene with Dr. Escoto. Pain has been controlled with Tylenol and Oxycodone. Patient is doing well this morning. Still complaining of some hip pain but does state it is better than it was the day before. No issues overnight. Exam Vital Signs (past 8 hours): - 08/14/20 05:10 08/14/20 08:49 Temperature 97.5 F L 98.4 F Pulse Rate 59 L 71 Respiratory Rate 18 14 Blood Pressure 123/73 126/66 Pulse Oximetry 98 100 Oxygen Delivery Method Room Air Oxygen Flow Rate 0 Narrative Exam Narrative: Patient's dressing is clean and dry. Positive dorsiflexion and plantar flexion of the toes and ankle. Palpable pedal pulses. Nontender to palpation to the posterior aspect of the calf. Objective Labs Result Diagrams: 08/14/20 05:31 08/14/20 05:31 Labs: Laboratory Results - last 24 hr 08/13/20 08/14/20 08/14/20 10:45 05:31 05:31 WBC RBC Hgb Hct MCV MCH MCHC RDW Plt Count Neut % (Auto) Lymph % (Auto) [place] % (Auto) Eos % (Auto) Baso % (Auto) Neut # (Auto) Lymph # (Auto) [place] # (Auto) Eos # (Auto) Baso # (Auto) Sodium 139 Potassium 3.3 L Chloride 109 H Carbon Dioxide 30 BUN 8 Creatinine 0.59 Estimated GFR > 60.0 BUN/Creatinine Ratio 13.6 Glucose 88 Calcium 8.2 L Magnesium 2.0 Total Bilirubin 0.4 AST 30 ALT 14 Alkaline Phosphatase 67 Total Protein 5.3 L Albumin 2.3 L Globulin 3.0 Albumin/Globulin Ratio 0.8 L Procalcitonin 0.09 Vancomycin Trough 21.7 H* 08/14/20 05:31 WBC 11.1 H RBC 3.12 L Hgb 8.8 L Hct 25.9 L MCV 82.9 MCH 28.0 MCHC 33.8 RDW 13.3 Plt Count 167 Neut % (Auto) 66.3 Lymph % (Auto) 19.9 L [place] % (Auto) 12.8 Eos % (Auto) 0.6 L Baso % (Auto) 0.4 Neut # (Auto) 7400 H Lymph # (Auto) 2200 [place] # (Auto) 1400 H Eos # (Auto) 100 Baso # (Auto) 0 Sodium Potassium Chloride Carbon Dioxide BUN Creatinine Estimated GFR BUN/Creatinine Ratio Glucose Calcium Magnesium Total Bilirubin AST ALT Alkaline Phosphatase Total Protein Albumin Globulin Albumin/Globulin Ratio Procalcitonin Vancomycin Trough PFSH Medical History Anxiety Cerebral aneurysm Depression Fibromyalgia History of MRSA infection (2015) HTN (hypertension) Lupus Mini stroke (2017) Panic attacks PTSD (post-traumatic stress disorder) Shaw-Maurizio syndrome TIA (transient ischemic attack) Surgical History H/O left wrist surgery (~2015) History of arthroscopy of both knees History of hysterectomy History of incision and drainage (2015) History of total right hip arthroplasty Hx of bilateral cataract extraction Hx of cholecystectomy (09/2019) Hx of eye surgery (07/2019) Hx of tonsillectomy S/P coil embolization of cerebral aneurysm (11/15/12) Family History Father Leukemia Mother Ovarian cancer Social History household members: children Smoking Status: Former smoker alcohol intake: current Assessment & Plan Post-op Postoperative Procedures: Procedures Operation Date: 08/12/20 11:15 Actual Procedures Side Surgeon p Hip I & D, poly exchange Right Fatou Escoto MD Postoperative day: 2 Postoperative status: doing well Postoperative status narrative: Patient doing well postoperative day 2. Of a right hip I and D with poly exchange. Postoperative plan: routine post-op care Postoperative plan narrative: Patient will be discharged home tomorrow. IV antibiotics have already been set up and will be delivered to her home tomorrow. Time Spent With Patient Time with patient: less than 15 minutes Quality VTE Deep Vein Thrombosis/Pulmonary Embolism Present on Admission: No
--- NOTE | 2020-08-14 10:41 | P.PN_ITS ---
Subjective Subjective Date Patient Seen: 08/14/20 Interval history: Fany Swartz is a 65-year-old female with a past medical history significant for hypertension, GERD, refractory uveitis on prednisone, and recent right total hip replacement 4 weeks prior to admission who presented to the ED with fever and right hip pain. The patient is resting in bedside chair comfortably. She just finished working with physical therapy and reportedly did really well. She has mild right hip pain that is controlled with pain medications. She reports she slept very well overnight. She has no other complaints and denies headache, shortness of breath, chest pain, abdominal pain, nausea, vomiting, fever, chills, dysuria, diarrhea or constipation. She is voiding and eliminating without difficulty. She is up ambulating with assistance. Exam Vital Signs (past 8 hours): - 08/14/20 05:10 08/14/20 08:49 Temperature 97.5 F L 98.4 F Pulse Rate 59 L 71 Respiratory Rate 18 14 Blood Pressure 123/73 126/66 Pulse Oximetry 98 100 Oxygen Delivery Method Room Air Oxygen Flow Rate 0 Narrative Exam Narrative: General: Elderly female sitting in bedside chair and in no acute distress, appears older than stated age and chronically ill, well-developed, well- nourished, appropriately interactive. HEENT: Normocephalic, atraumatic. External ears without defect. Pupils equal, round, and reactive to light. Anicteric sclerae, moist conjunctivae, and no lid lag. Oropharynx free of erythema and cobble stoning with moist mucosa. Neck: Supple with full range of motion. No lymphadenopathy or thyromegaly. Cardiovascular: Regular rate and rhythm without murmurs, rubs, or gallops appreciated. Pulmonary: Clear to auscultation bilaterally without crackles, wheezes, or rhonchi. Normal respiratory effort with no use of accessory muscles. Abdomen: Soft, obese, bowel sounds present, nontender, nondistended. No hepat osplenomegaly or masses appreciated. Extremities: No clubbing, cyanosis, or edema. Right hip with dressing in place C/D/I. Drains have been removed. Skin: Normal temperature, turgor, and texture; no rash, ulcers, or subcutaneous nodules appreciated. Neurological: Cranial nerves grossly intact. Psychiatric: Normal mood and affect. Alert and oriented to person, place, and time. Objective Labs Result Diagrams: 08/14/20 05:31 08/14/20 05:31 Labs: Laboratory Results - last 24 hr 08/13/20 08/14/20 08/14/20 10:45 05:31 05:31 WBC RBC Hgb Hct MCV MCH MCHC RDW Plt Count Neut % (Auto) Lymph % (Auto) [place] % (Auto) Eos % (Auto) Baso % (Auto) Neut # (Auto) Lymph # (Auto) [place] # (Auto) Eos # (Auto) Baso # (Auto) Sodium 139 Potassium 3.3 L Chloride 109 H Carbon Dioxide 30 BUN 8 Creatinine 0.59 Estimated GFR > 60.0 BUN/Creatinine Ratio 13.6 Glucose 88 Calcium 8.2 L Magnesium 2.0 Total Bilirubin 0.4 AST 30 ALT 14 Alkaline Phosphatase 67 Total Protein 5.3 L Albumin 2.3 L Globulin 3.0 Albumin/Globulin Ratio 0.8 L Procalcitonin 0.09 Vancomycin Trough 21.7 H* 08/14/20 05:31 WBC 11.1 H RBC 3.12 L Hgb 8.8 L Hct 25.9 L MCV 82.9 MCH 28.0 MCHC 33.8 RDW 13.3 Plt Count 167 Neut % (Auto) 66.3 Lymph % (Auto) 19.9 L [place] % (Auto) 12.8 Eos % (Auto) 0.6 L Baso % (Auto) 0.4 Neut # (Auto) 7400 H Lymph # (Auto) 2200 [place] # (Auto) 1400 H Eos # (Auto) 100 Baso # (Auto) 0 Sodium Potassium Chloride Carbon Dioxide BUN Creatinine Estimated GFR BUN/Creatinine Ratio Glucose Calcium Magnesium Total Bilirubin AST ALT Alkaline Phosphatase Total Protein Albumin Globulin Albumin/Globulin Ratio Procalcitonin Vancomycin Trough [facility] Medical History Anxiety Cerebral aneurysm Depression Fibromyalgia History of MRSA infection (2016) HTN (hypertension) Lupus Mini stroke (2018) Panic attacks PTSD (post-traumatic stress disorder) Shaw-Maurizio syndrome TIA (transient ischemic attack) Surgical History H/O left wrist surgery (~2015) History of arthroscopy of both knees History of hysterectomy History of incision and drainage (2015) History of total right hip arthroplasty Hx of bilateral cataract extraction Hx of cholecystectomy (09/2019) Hx of eye surgery (07/2019) Hx of tonsillectomy S/P coil embolization of cerebral aneurysm (11/15/12) Family History Father Leukemia Mother Ovarian cancer Social History household members: children Smoking Status: Former smoker alcohol intake: current Assessment & Plan Assessment & Plan narrative: Fany Swartz is a 65-year-old female with a past medical history significant for hypertension, GERD, refractory uveitis on prednisone, and recent right total hip replacement 4 weeks prior to admission who presented to the ED with fever and right hip pain. 1. Acute postoperative right hip infection, in setting of recent total right hip arthroplasty, present on admission. Active. -Patient presented with fever and right hip pain with associated abdominal pain, nausea and vomiting. -Synovial fluid aspirate grew MSSA. -Continue vancomycin with dosing per pharmacist to treat MSSA as patient has m ultiple drug allergies including Juan Daniel Maurizio syndrome for 3-6 weeks per orthopedic surgery. -Consulted Orthopedic surgery, Dr. Escoto, who performed right hip irrigation and debridement, femoral head and polyethylene exchange with revision of femoral head and acetabular polyethylene. Continue postoperative management per Orthopedic surgery. Continue weight-bearing as tolerated on right lower e xtremity and posterior hip precautions. Continue VTE prophylaxis with aspirin 81 mg twice daily for additional 4 weeks. -Continue pain control with acetaminophen 975 mg 3 times daily and oxycodone 5 mg every 3 hours as needed for moderate to severe pain. 2. Acute blood loss anemia, not present on admission. Stable. -Initial hemoglobin 13.7. Hemoglobin trending downward now 8.8 likely due to ac eloy blood loss from surgery and due to infection. Transfusion goal hemoglobin < 7.0. -Continue to monitor H&H closely. 3. Acute chest pain, not present on admission. Resolved. -EKG EKG demonstrated sinus rhythm without acute ischemic changes such as ST elevation or depression. Troponin negative < 0.012. -CT chest, abdomen and pelvis with contrast was unremarkable and negative for any acute process. -Possibly secondary to GERD and continue H2 antagonist as below. 4. Acute left lower extremity pain, not present on admission. Resolved. -Venous Doppler ultrasound of left lower extremity negative for DVT. Left lower extremity pain was likely due to muscle spasm which has resolved. 5. Hypertension, chronic, present on admission. Stable. -Held home chlorthalidone and losartan postoperatively to prevent hypotension. Continue to monitor BP closely which remains controlled off of home anti- hyppertensives. Plan to restart antihypertensives if blood pressure becomes elevated. 6. GERD, chronic, present on admission. Stable. -Continue home famotidine increased from 40 mg daily at bedtime to 40 mg twice daily for GI prophylaxis with use of aspirin 81 mg twice daily for VTE prophyla xis and prednisone for chronic refractory uveitis as below. 7. Refractory uveitis, chronic, present admission. Stable. -Patient is higher risk of infection and delayed wound healing due to chronic gl ucocorticoid use. -Continue home prednisolone eye drops and prednisone 10 mg daily. Continue outpatient follow-up with ophthalmology. 8. Morbid obesity, chronic, present on admission. Stable. -BMI 39.7. -Due to morbid obesity patient has high risk of complication and wound healing. Code status: Full code VTE prophylaxis: ASA, SCDs Disposition: Patient likely to discharge home tomorrow with [facility] for continued IV antibiotics for 3-6 weeks per Ortho. Quality VTE Deep Vein Thrombosis/Pulmonary Embolism Present on Admission: No
--- NOTE | 2020-08-14 10:58 | PT.IPTN ---
Current Diagnoses Cellulitis of right lower limb (08/09/20) Surgery Performed Operation Date: 08/12/20 11:15 Actual Procedures p Hip I & D, poly exchange(Right) - Fatou Escoto MD Physical Therapy Treatment Note M2 PT-IP Current Condition Start: 08/13/20 10:07 Freq: Status: Active Protocol: Document 08/13/20 09:35 MB (Rec: 08/13/20 10:24 MB [id number]) Physical Therapy Current Condition Current Condition Evaluation Date 08/13/20 Treatment Diagnosis S/p I&D right hip Onset Date 08/12/2020 Precautions Posterior Hip Precautions No Hip Flexion > 90 degrees,No Hip Internal Rotation,No Hip Adduction Weight Bearing Status Weight Bearing Status Weight Bear as Tolerated M3 PT-IP Subjective Start: 08/13/20 10:07 Freq: Status: Active Protocol: Document 08/14/20 10:46 [facility] (Rec: 08/14/20 10:55 [facility] [id number]) Subjective Physical Therapy Visit Type Type Treatment Note Visit Start Time 09:45 Visit Stop Time 10:25 Total Visit Minutes 40 Physical Therapy Visit Comments Patient Comments Pt reports pain is a 03/25, she reports she is 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 Patient Goals To return home with daughter Therapy Pain Assessment Pain When Pain Assessed At Rest Pain Present Pain Present Pain Reported Location right hip Intensity 7 Scale Used Numeric (0 - 10) Pain Behaviors Holding Area Pain Management Techniques Distraction,Re-positioning M4 PT-IP Mobility and Gait Start: 08/13/20 10:07 Freq: Status: Active Protocol: Document 08/14/20 10:55 [facility] (Rec: 08/14/20 10:58 [facility] [id number]) PT-Bed Mobility Assessment Supine to Sit Supine to Sit Standby Assistance,1 Person Assistance,Head of Bed Elevated,Bedrails Scooting Scooting to Edge of Bed Standby Assistance PT-Transfer Assessment Sit to and From Stand Sit to and from Stand Contact Guard Assistance,1 Person Assistance,Use of Upper Extremities Equipment Transfer Assistive Device Gait Belt,Front Wheeled Walker Transfers Transfer Destination Bed Transfer Technique gait Transfer Ability Level of Assist Contact Guard Assistance Comments Mobility Comments pt needed cues to not flex pass 90 degrees as she was trying to flex forward to put on her sock. We reviewed hip precautions today for safety. Pt ambulated in room back and forth from the window to door for 50 feet with CGA and no loss of balance. She did not wish to leave her room today for stairs but agrees to stairs tomorrow before she leaves. Gait Assessment Gait Gait Assistance Required: Contact Guard Assist Distance (Feet) 50 Able to Maintain Weight Bearing Status Yes During Gait Assistive Devices Assistive Device Gait Belt,Front Wheeled Walker Orthotic/Prosthetic Devices or Brace: No Factors Limiting Gait Function Factors Limiting Gait Function Decreased Strength,Pain,Poor Balance M5 PT-IP Objective Assessments Start: 08/13/20 10:07 Freq: Status: Active Protocol: Document 08/13/20 09:35 MB (Rec: 08/13/20 10:24 MB [email or web address]) Orientation Orientation/Cognition Level of Alertness Alert Orientation Name,Age,Birthday,Month,Date, Year,Day of Week,Place, Situation Language Function Ability No Deficits Noted Safety Awareness Decreased Safety Awareness Memory Description Short Term Impaired Comments Pt can recall 2/3 posterior hip precautions that she had from recent right THR, cues to recall no flexion over 90 deg Gross Range of Motion Upper Extremity ROM Assessment Within Functional Limits Lower Extremity ROM Assessment Right Impaired Impairments Pt reports fear of MMT right leg and demonstrates AP 65% range and HS 50% range and is able to move out to EOB with minimal use of her hands to help her right leg and is able to let right leg dangle with scooting EOB Strength Upper Extremity Strength Assessment Within Functional Limits Lower Extremity Strength Assessment Right Impaired Comments Strength Comments Deferred MMT right LE d/t fear of pain, LLE is functional Sensation Assessment Sensation Light Touch Intact M6 PT-IP Treatment Start: 08/13/20 10:07 Freq: Status: Active Protocol: Document 08/14/20 10:46 [facility] (Rec: 08/14/20 10:55 [facility] [id number][facility] Physical Therapy Treatment Exercises Exercises Ankle Pumps,Gluteal Sets,Quad Sets,Heel Slides Education Education Provided Precautions,Weight Bearing Status,Safety M7 PT-IP Assessment and Plan Start: 08/13/20 10:07 Freq: Status: Active Protocol: Document 08/14/20 10:46 [facility] (Rec: 08/14/20 10:55 [facility] [id number][facility] PT Summary Assessment and Plan Summary Impairments Pain,ROM,Strength,Balance, Transfers,Gait,Activity Tolerance Assessment Summary Pt is a 65 y/o female POD 1 after I&D infected right SCOT. She is WBAT and has posterior hip precautions per op note. She reports pain 03/25 but is able to mobilize well in the bed, to the EOB, for transfers and gait. She ambulated in room 50 feet with CGA and WBAT right LE. Pt will most likely discharge saturday am home to [place] with her daughter. She has IV antibiotics set up for home. Goals Bed Mobility Goal Independent Transfer Goal Independent Gait Goal Independent,Front Wheel Walker Gait Distance 100 Other Goals Pt will ascend and descend 4 steps with 1-2 rails with SBA to allow safe entry into home by 08/15/2020. Days to Meet Goals 3 Frequency of Treatment Frequency Of Treatment Once a Day Treatment Plan Physical Therapy Treatment Plan Bed Mobility Training,Transfer Training,Gait Training, Therapeutic Exercise,Balance Retraining Other Recommendations and Next Treatment Gait in hallway and stair Focus training Recommendations To Nursing Amount of Assist Needed Standby Assistance,1 Person Assist Discharge Recommendations PT Discharge Recommendations Home with 08/04 Assist,Home Health Transportation Needs at Discharge Private Vehicle
[2020-08-14 11:39] LABS: Vancomycin Trough 21.5 ug/mL (10-20)
[2020-08-14 12:22] LABS: Hemoglobin A1C% w Est Avg Glu 5.4 % (4.0-6.0)
[2020-08-14] MEDS: VANCOMYCIN 1,000 MG/200 ML PIGGYBACK 200 MG IV ×2 (13:02→20:28)
[2020-08-14] MEDS: FAMOTIDINE 20 MG TABLET 40 MG PO ×2 (13:02→20:30)
[2020-08-14] MEDS: VANCOMYCIN TROUGH 1 REQUEST MISC (13:02)
[2020-08-14] MEDS: POTASSIUM CHLORIDE 20 MEQ TAB 40 MEQ PO (16:59)
[2020-08-14] MEDS: GABAPENTIN 100 MG CAPSULE PO (20:30)
[2020-08-15] MEDS: VANCOMYCIN 1,000 MG/200 ML PIGGYBACK 200 MG IV ×2 (03:15→12:21)
[2020-08-15] MEDS: OXYCODONE IR 5 MG TABLET PO ×3 (03:16→11:58)
[2020-08-15 04:48] VITALS: BP 131/87; PULSE 78; RESP 18; TEMP 36.8; O2SAT 97
[2020-08-15 07:43] VITALS: BP 124/66; PULSE 89; RESP 16; TEMP 37.1; O2SAT 98
[2020-08-15] MEDS: ACETAMINOPHEN 325 MG TABLET 975 MG PO ×2 (08:28→14:17)
[2020-08-15] MEDS: ASPIRIN EC 81 MG TABLET PO (08:28)
[2020-08-15] MEDS: FAMOTIDINE 20 MG TABLET 40 MG PO (08:28)
[2020-08-15] MEDS: DOCUSATE 100 MG CAPSULE PO (08:28)
[2020-08-15] MEDS: predniSONE 10 MG TABLET PO (08:28)
[2020-08-15] MEDS: prednisoLONE OPHTH SUSP 1 DROPS EYE-BOTH ×2 (08:29→14:16)
[2020-08-15 08:55] LABS: Add Manual Diff / Slide Review NO; Basophils Absolute Auto 100 /uL (0-100); Basophils Percent Auto 0.6 % (0-2); Eosinophils Absolute Auto 100 /uL (0-450); Eosinophils Percent Auto 0.9 % (2-4); Lymphocytes Absolute Auto 2300 /uL (1100-4500); Lymphocytes Percent Auto 19.5 % (25-40); Mean Corpuscular HGB Conc 33.3 % (30-36); Mean Corpuscular Hemoglobin 27.6 PG (26-34); Mean Corpuscular Volume 83.1 fL (80-100); Monocytes Absolute Auto 1500 /uL (0-900); Monocytes Percent Auto 12.8 % (3-14); Neutrophils Absolute Auto 7800 /uL (1500-7000); Neutrophils Percent Auto 66.2 % (50-75); Platelet Count 219 X10^3/uL (150-400); Red Blood Cell Count 3.25 X10^6/uL (4.0-5.2); Red Cell Distribution Width 13.2 % (11.6-14.8); White Blood Cell Count 11.8 X10^3/uL (4.5-11.0)
--- NOTE | 2020-08-15 08:56 | CM.DPNOTE ---
Faxed to [facility] on 08/15/20: IV Catheter Insertion records, Chest X-ray, Med List, Labs per Elisa. Deepika Martinez CM Asst.
--- NOTE | 2020-08-15 08:56 | CM.DANOTE ---
DCP/continued: Received verbal referral from Dr. Landaverde that patient will be ready to d/c home today. Current plan is for patient to d/c home with continued IV abx. Contracted provider is [facility]. Placed to [facility] and spoke with Matilde she reports that they have everything except for current dosing and PICC line information. Spoke with Dr. Landaverde whom has talked to [facility]. Vanco trough is being drawn about 11:30am. Matilde aware that we will know accurate dosing once that completed. Matilde requesting that patient receive lunch/afternoon dose prior to her d/c. P: D/C home today with [facility] or IV abx. ALPESH Chaparro
[2020-08-15 09:09] LABS: BUN Creatinine Ratio 10.8 (6-22); Blood Urea Nitrogen 7 mg/dL (7-17); Calcium 8.3 mg/dL (8.4-10.2); Carbon Dioxide 29 mmol/L (22-32); Chloride 106 mmol/L (98-107); Estimated Glomerular Filt Rate > 60.0 mL/min (>60); Glucose 118 mg/dL (80-110); HEMOLYSIS < 15 (0-50); Potassium 3.3 mmol/L (3.4-5.1); Sodium 135 mmol/L (137-145)
[2020-08-15] MEDS: POTASSIUM CHLORIDE 20 MEQ TAB 40 MEQ PO ×2 (09:40→12:31)
[2020-08-15 10:05] LABS: Enterococcus species Not Detected (Not Detect); Listeria monocytogenes Not Detected (Not Detect); Methicillin-resistant gene Not Detected (Not Detect); Staphylococcus species Detected (Not Detect); Streptococcus agalactiae (Gr B Not Detected (Not Detect); Streptococcus pneumonia Not Detected (Not Detect); Streptococcus species Not Detected (Not Detect); Vancomycin-rest genes A/B Not Detected (Not Detect)
[2020-08-15 10:06] LABS: Acinetobacter baumannii Not Detected (Not Detect); Candida albicans Not Detected (Not Detect); Candida glabrata Not Detected (Not Detect); Candida krusei Not Detected (Not Detect); Candida parapsilosis Not Detected (Not Detect); Candida tropicalis Not Detected (Not Detect); E. coli Not Detected (Not Detect); Enterobacter cloacae complex Not Detected (Not Detect); Enterobacteriaceae species Not Detected (Not Detect); Haemophilus influenzae Not Detected (Not Detect); KPC (carbapenem-resist gene) Not Detected (Not Detect); Neisseria meningitidis Not Detected (Not Detect); Proteus species Not Detected (Not Detect); Pseudomonas aeruginosa Not Detected (Not Detect); Serratia marcescens Not Detected (Not Detect); Streptococcus pyogenes (Gr A) Not Detected (Not Detect)
--- NOTE | 2020-08-15 10:09 | P.DS_ITS ---
History of Present Illness History of Present Illness Date Patient Seen: 08/09/20 Chief complaint: Cannot eat, fevers, s/p right total hip arthroplas Narrative: Written by Risa DEXTER: Fany Swartz is a pleasant 65 y.o. female status post right total hip arthoplasty on 07/05/[address] Fatou Escoto who presented today with fevers and inability to eat for 2 weeks. She states that she is unable to keep anything down, she either vomits her food back up or has diarrhea. She does not know what her vomitus looks like however she states that her diarrhea is mustard colored. She vomits at least once daily, urine is orange but no burning or blood seen. Denies chest pain, shortness of breath, has abdominal cramping associated with vomiting, has mild mid lateral thigh pain distal to the hip incision site. 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 She is from [facility] however was trying to get set up at the [facility]. She states that this started about 2 weeks ago and had a follow-up with Dr. Escoto and due to her fevers was instructed to have a COVID test done. She was able to go to that office yesterday to rule remove the agnieszka from her right hip. She has had fevers as well, generally 100 degrees. The patient is allergic to all antibiotic medications with exception of vancomycin. 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 Patient was tested for COVID -19 presurgically on July 02 and again today in the ED. She states that her community has not been hit with COVID-19 until this past week when a friend of her daughters apparently came down with COVID- 19. The patient's COVID-19 test done today was the rapid test. She was administered IV Vancomycin 1 gram in the ED. Right hip x-ray done while in the ED was unremarkable. Patient's temperature is 100.5 degree, blood pressure 142/72, heart rate 82, respiratory rate 24, oxygen saturation 100% on room air, she weighs 98.5 kg with a BMI of 39.6. She does have an elevated white count of 15.7 with a left shift and neutrophil count of 10,300, she also is lymphopenic at 19%, ESR is elevated at 26, sodium 134, glucose 118, CRP was elevated at 4.6, urine WBC was elevated at 5 to 10 high-powered field, few bacteria, and mucus. It did meet criteria for culture. Initial COVID-19 test was negative Discharge Providers Provider Date of admission: 08/09/20 17:25 Discharge Date: 08/15/20 Consults: 08/09/20 16:23 Consult to Orthopedic Surgery Stat Comment: Consulting Provider: Fatou Escoto Reason for consultation: infection Has provider been notified: Yes 08/09/20 19:53 Consult to Physician Routine Comment: Consulting Provider: Fatou Escoto Reason for consultation: suspected post-op infection Has provider been notified: Yes 08/12/20 11:21 Consult to Anesthesiology Routine Comment: Consulting Provider: Anesthesiologist Reason for consultation: Regional block for post operative pain control 08/12/20 15:10 Consult After Hours PICC Line RN Routine Comment: 08/12/20 15:50 Consult to Discharge Planning Routine Comment: Consult to Physical Therapy Evaluate & Treat Comment: Physician Instructions: post op SCOT protocol Consult to Respiratory Therapy Evaluate & Treat Comment: Physician Instructions: Evaluate and treat Discharge provider: Linda Landaverde DO Summary Hospital Course Discharge Diagnosis: 1. Acute postoperative right hip infection, in setting of recent total right hip arthroplasty, present on admission. Resolving. 2. Acute blood loss anemia, not present on admission. Stable. 3. Acute chest pain, not present on admission. Resolved. 4. Acute left lower extremity pain, not present on admission. Resolved. 5. Hypertension, chronic, present on admission. Stable. 6. GERD, chronic, present on admission. Stable. 7. Refractory uveitis, chronic, present admission. Stable. 8. Morbid obesity, chronic, present on admission. Stable. Hospital Course: Fany Swartz is a 65-year-old female with a past medical history significant for hypertension, GERD, refractory uveitis on prednisone, and recent right total hip replacement 4 weeks prior to admission who presented to the ED with fever and right hip pain. 1. Acute postoperative right hip infection, in setting of recent total right hip arthroplasty, present on admission. Resolving. -Patient presented with fever and right hip pain with associated abdominal pain, nausea and vomiting. -Synovial fluid aspirate grew MSSA. -Continued vancomycin with dosing per pharmacist to treat MSSA as patient has multiple drug allergies including Juan Daniel Maurizio syndrome for 3-6 weeks per o rthopedic surgery. Patient discharged with vancomycin 1000 mg every 8 hours at home with [facility] for 6 weeks (possibly 3 weeks and to be determined by ortho). -Consulted Orthopedic surgery, Dr. Esocto, who performed right hip irrigation and debridement, femoral head and polyethylene exchange with revision of femoral head and acetabular polyethylene. Continue postoperative management per Orthopedic surgery. Continued weight-bearing as tolerated on right lower extremity and posterior hip precautions. Continue VTE prophylaxis with aspirin 81 mg twice daily for additional 4 weeks. Follow-up with ortho, Dr. Escoto, in 2 weeks post-operatively. -Continued pain control with acetaminophen 975 mg 3 times daily and oxycodone 5 mg every 3 hours as needed for moderate to severe pain. -Continued physical and occupational therapy. 2. Acute blood loss anemia, not present on admission. Stable. -Initial hemoglobin 13.7. Hemoglobin trended down to 8.8 and improved to 9.0 and stable which was likely due to acute blood loss from surgery and due to infection. Transfusion goal hemoglobin < 7.0. -Continue to monitor H&H closely. 3. Acute chest pain, not present on admission. Resolved. -EKG demonstrated sinus rhythm without acute ischemic changes such as ST elevation or depression. Troponin negative < 0.012. -CT chest, abdomen and pelvis with contrast was unremarkable and negative for any acute process. -Possibly secondary to GERD and continue H2 antagonist as below. 4. Acute left lower extremity pain, not present on admission. Resolved. -Venous Doppler ultrasound of left lower extremity negative for DVT. Left lower extremity pain was likely due to muscle spasm which has resolved. 5. Hypertension, chronic, present on admission. Stable. -Held home chlorthalidone and losartan as patient had low normal/hypotension on antihypertensives postoperatively. Continued to monitor BP closely which remains controlled off of home anti-hypertensives. Recommended continued to h old antihypertensives if blood pressure becomes elevated. 6. GERD, chronic, present on admission. Stable. -Continued home famotidine increased from 40 mg daily at bedtime to 40 mg twice daily for GI prophylaxis while on aspirin 81 mg twice daily for VTE prophylaxis x 4 weeks, as well as, being on prednisone for chronic refractory uveitis as below makes high risk of GI bleeding. 7. Refractory uveitis, chronic, present admission. Stable. -Patient is higher risk of infection and delayed wound healing due to chronic glucocorticoid use. -Continued home prednisolone eye drops and prednisone 10 mg daily. Continued outpatient follow-up with ophthalmology. 8. Morbid obesity, chronic, present on admission. Stable. -BMI 39.7. -Due to morbid obesity patient has high risk of complication and wound healing. Exam Vital Signs (past 8 hours): - 08/15/20 04:48 08/15/20 07:43 Temperature 98.2 F 98.8 F Pulse Rate 78 89 Respiratory Rate 18 16 Blood Pressure 131/87 124/66 Pulse Oximetry 97 98 Oxygen Delivery Method Room Air Oxygen Flow Rate 0 Narrative Exam Narrative: General: Elderly female sitting in bedside chair and in no acute distress, appears older than stated age and chronically ill, well-developed, well- nourished, appropriately interactive. HEENT: Normocephalic, atraumatic. External ears without defect. Pupils equal, round, and reactive to light. Anicteric sclerae, moist conjunctivae, and no lid lag. Oropharynx free of erythema and cobble stoning with moist mucosa. Neck: Supple with full range of motion. No lymphadenopathy or thyromegaly. Cardiovascular: Regular rate and rhythm without murmurs, rubs, or gallops appreciated. Pulmonary: Clear to auscultation bilaterally without crackles, wheezes, or rhonchi. Normal respiratory effort with no use of accessory muscles. Abdomen: Soft, obese, bowel sounds present, nontender, nondistended. No hepatosplenomegaly or masses appreciated. Extremities: No clubbing or cyanosis. Mild bipedal edema. Right hip with dres sing in place C/D/I without surrounding erythema or edema. Skin: Normal temperature, turgor, and texture; no rash, ulcers, or subcutaneous nodules appreciated. Neurological: Cranial nerves grossly intact. Psychiatric: Normal mood and affect. Alert and oriented to person, place, and time. Objective Labs Result Diagrams: 08/15/20 08:45 08/15/20 08:45 Labs: Laboratory Results - last 24 hr 08/09/20 08/14/20 08/14/20 11:55 05:31 10:40 WBC RBC Hgb Hct MCV MCH MCHC RDW Plt Count Neut % (Auto) Lymph % (Auto) [place] % (Auto) Eos % (Auto) Baso % (Auto) Neut # (Auto) Lymph # (Auto) [place] # (Auto) Eos # (Auto) Baso # (Auto) Sodium Potassium Chloride Carbon Dioxide BUN Creatinine Estimated GFR BUN/Creatinine Ratio Glucose Hemoglobin A1c 5.4 Calcium Vancomycin Trough 21.5 H* A. baumannii (PCR) Not detected Orquidea albicans (PCR) Not detected C. glabrata (PCR) Not detected C. krusei (PCR) Not detected C. parapsilosis (PCR) Not detected C. tropicalis (PCR) Not detected Enterobacteriac sp PCR Not detected E. cloacae complex PCR Not detected Enterococcus sp PCR Not detected E. coli (PCR) Not detected H. influenzae (PCR) Not detected Klebsiella oxytoca PCR Not detected Klebsiella pneumoniae Not detected List. monocytogenes PCR Not detected N. meningitidis (PCR) Not detected Proteus species (PCR) Not detected Serratia marcescens PCR Not detected Staphylococcus sp PCR Detected H Staph aureus (PCR) Detected H mecA-Methicil Res Gene Not detected Streptococcus sp PCR Not detected Group A Strep (PCR) Not detected Strep agalactiae (PCR) Not detected Strep pneumoniae (PCR) Not detected P. aeruginosa (PCR) Not detected Nilda/B-Vanco Res Genes Not detected KPC-Carbap Res Gene PCR Not detected 08/15/20 08/15/20 08:45 08:45 WBC 11.8 H RBC 3.25 L Hgb 9.0 L Hct 27.0 L MCV 83.1 MCH 27.6 MCHC 33.3 RDW 13.2 Plt Count 219 Neut % (Auto) 66.2 Lymph % (Auto) 19.5 L [place] % (Auto) 12.8 Eos % (Auto) 0.9 L Baso % (Auto) 0.6 Neut # (Auto) 7800 H Lymph # (Auto) 2300 [place] # (Auto) 1500 H Eos # (Auto) 100 Baso # (Auto) 100 Sodium 135 L Potassium 3.3 L Chloride 106 Carbon Dioxide 29 BUN 7 Creatinine 0.65 Estimated GFR > 60.0 BUN/Creatinine Ratio 10.8 Glucose 118 H Hemoglobin A1c Calcium 8.3 L Vancomycin Trough A. baumannii (PCR) Orquidea albicans (PCR) C. glabrata (PCR) C. krusei (PCR) C. parapsilosis (PCR) C. tropicalis (PCR) Enterobacteriac sp PCR E. cloacae complex PCR Enterococcus sp PCR E. coli (PCR) H. influenzae (PCR) Klebsiella oxytoca PCR Klebsiella pneumoniae List. monocytogenes PCR N. meningitidis (PCR) Proteus species (PCR) Serratia marcescens PCR Staphylococcus sp PCR Staph aureus (PCR) mecA-Methicil Res Gene Streptococcus sp PCR Group A Strep (PCR) Strep agalactiae (PCR) Strep pneumoniae (PCR) P. aeruginosa (PCR) Nilda/B-Vanco Res Genes KPC-Carbap Res Gene PCR PFSH Medical History Anxiety Cerebral aneurysm Depression Fibromyalgia History of MRSA infection (2016) HTN (hypertension) Lupus Mini stroke (2018) Panic attacks PTSD (post-traumatic stress disorder) Shaw-Maurizio syndrome TIA (transient ischemic attack) Surgical History H/O left wrist surgery (~2015) History of arthroscopy of both knees History of hysterectomy History of incision and drainage (2015) History of total right hip arthroplasty Hx of bilateral cataract extraction Hx of cholecystectomy (09/2019) Hx of eye surgery (07/2019) Hx of tonsillectomy S/P coil embolization of cerebral aneurysm (11/15/12) Family History Father Leukemia Mother Ovarian cancer Social History household members: children Smoking Status: Former smoker alcohol intake: current Discharge Plan Discharge Plan Patient Disposition: Home Provider Discharge Comment: You are being discharged home. You had a right hip wound infection which has been surgically cleaned out. You have been treated with IV vancomycin and [facility] will continue vancomycin 1000 mg IV every 8 hours for likely 6 weeks, possibly 3 weeks which will depend on your wound healing and lab work and will be determined by Dr. Escoto. Please follow- up with Dr. Escoto in 2 weeks for postoperative appointment. Continue aspirin 81 mg twice daily to prevent blood clots. Your famotidine has been increased from 40 mg daily at bedtime to 40 mg twice daily to protect your GI tract while on aspirin for 4 weeks then you may continue previous dosing. Continue follow-up as planned with your opthamologist for your prednisone treatment for your refractory uveitis. Your blood pressure has been well controlled off of your blood pressure medications. Continue to monitor your blood pressure (2 measurements in the morning and 2 measurements in the evening at least 10 minute s apart and use correct blood pressure technique sitting in a chair with your back supported, feet planted flat on the floor, blood pressure cuff at the level of your heart, your arm resting on a hard surface and sitting still for at least 5 minutes before measurement) and keep a log of your measurements to take to your doctors appointments. Please follow-up with your PCP regarding your hospitalization and discuss your blood pressure and blood pressure log with your PCP. Do not restart your chlorthalidone or losartan until you are able to follow-up and discuss with your PCP. Discharge orders & Medications Prescriptions: New acetaminophen 325 mg Tablet 975 mg PO TID Qty: 40 RF: 0 aspirin 81 mg Tablet,Delayed Release (Dr/Ec) 81 mg PO BID Qty: 40 RF: 0 vancomycin-water inject (PEG) 1 gram/200 mL Piggyback 1,000 mg IV Q8H Qty: 126 RF: 0 oxycodone 5 mg Tablet 5 mg PO Q3HR PRN (Reason: Pain, Moderate (4-6)) Qty: 40 RF: 0 Continued prednisone 10 mg Tablet 10 mg PO DAILY RF: 0 chlorthalidone 25 mg Tablet 25 mg PO DAILY RF: 0 prednisolone acetate 1 % Drops,Suspension 1 drp EYE-BOTH TID RF: 0 ibuprofen 200 mg Capsule 400 mg PO QID PRN (Reason: Pain) RF: 0 hydroxyzine HCl 50 mg Tablet 50 mg PO TID PRN (Reason: Anxiety) RF: 0 gabapentin 100 mg Capsule 100 mg PO BEDTIME PRN (Reason: Pain) RF: 0 albuterol sulfate 90 mcg/actuation Hfa Aerosol Inhaler 2 puff INHALATION Q4-6H PRN (Reason: Shortness Of Breath) RF: 0 diphenhydramine HCl 50 mg Capsule 50 mg PO QID PRN (Reason: Itching) RF: 0 acetaminophen 325 mg Tablet 650 mg PO TID Qty: 20 RF: 0 aspirin 81 mg Tablet,Delayed Release (Dr/Ec) 81 mg PO BID Qty: 30 RF: 0 docusate sodium [DOK] 100 mg Capsule 100 mg PO BID Qty: 30 RF: 0 oxycodone 5 mg Tablet 5 mg PO Q4-6H PRN (Reason: Pain, Moderate (4-6)) Qty: 40 RF: 0 Changed famotidine 20 mg Tablet 40 mg PO BID Qty: 60 RF: 0 losartan 100 mg Tablet 25 mg PO DAILY Qty: 30 RF: 0 Follow up/Referrals: Fatou Escoto MD [Physician] - Diet/Activity/Treatments Diet: Diet as Tolerated, Low-fat, Low-sodium and Low-cholesterol Activity: Weight bear as tolerated. Frequent short walks. Use a walker for fall prevention. Cold/Heat Therapy: Ice packs as needed. Allow skin to return to room temp between icing. Skin/Wound/Dressing Care Report to your healthcare provider any signs of infection, such as:: chills, fever, night sweats, unusual drainage and unusual redness Dressing: Dressing is to remain in place until your 2 week post op. Call the office if this becomes saturated. Battery pack may be unscrewed for showers and then put back in place. Unit will likely run out of batteries in ~1 week. Cord may be cut at the dressing once this happens. Visit Report/Discharge Packet Instructions: DI for Hip Replacement, How To Perform RICE (Rest, Ice, Compress, Elevate), How to Prevent Falls, DI for Prescription Opioid Use, Stool Softeners Stand Alone Forms: Surgery Discharge Quality VTE Deep Vein Thrombosis/Pulmonary Embolism Present on Admission: No
--- NOTE | 2020-08-15 10:32 | PM.PN.1 ---
Subjective Subjective Date Patient Seen: 08/15/20 Time Patient Seen: 10:32 Interval history: Patient is hopsital day 7 POD#3 s/p Right hip irrigation and debridement, femoral head and polyethylene exchange with revision of femoral head and acetabular polyethylene with Dr. Escoto. She has been mobilizing with PT. Pain has been controlled and gradually improving. She has tolerated a diet and is voiding appropriately. No complaints. Exam Vital Signs (past 8 hours): - 08/15/20 04:48 08/15/20 07:43 Temperature 98.2 F 98.8 F Pulse Rate 78 89 Respiratory Rate 18 16 Blood Pressure 131/87 124/66 Pulse Oximetry 97 98 Oxygen Delivery Method Room Air Oxygen Flow Rate 0 Narrative Exam Narrative: 65 year old female resting in bed alert and oriented in no acute distress. PHILIPPE dressing in place is CDI and functional. Small amount of strikethrough. Patient able to flex the hip and knee. Active dorsiflexion and plantar flexion of the ankle. Calves are soft, nontender. Objective Labs Result Diagrams: 08/15/20 08:45 08/15/20 08:45 Labs: Laboratory Results - last 24 hr 08/09/20 08/14/20 08/14/20 11:55 05:31 10:40 WBC RBC Hgb Hct MCV MCH MCHC RDW Plt Count Neut % (Auto) Lymph % (Auto) [place] % (Auto) Eos % (Auto) Baso % (Auto) Neut # (Auto) Lymph # (Auto) [place] # (Auto) Eos # (Auto) Baso # (Auto) Sodium Potassium Chloride Carbon Dioxide BUN Creatinine Estimated GFR BUN/Creatinine Ratio Glucose Hemoglobin A1c 5.4 Calcium Vancomycin Trough 21.5 H* A. baumannii (PCR) Not detected Orquidea albicans (PCR) Not detected C. glabrata (PCR) Not detected C. krusei (PCR) Not detected C. parapsilosis (PCR) Not detected C. tropicalis (PCR) Not detected Enterobacteriac sp PCR Not detected E. cloacae complex PCR Not detected Enterococcus sp PCR Not detected E. coli (PCR) Not detected H. influenzae (PCR) Not detected Klebsiella oxytoca PCR Not detected Klebsiella pneumoniae Not detected List. monocytogenes PCR Not detected N. meningitidis (PCR) Not detected Proteus species (PCR) Not detected Serratia marcescens PCR Not detected Staphylococcus sp PCR Detected H Staph aureus (PCR) Detected H mecA-Methicil Res Gene Not detected Streptococcus sp PCR Not detected Group A Strep (PCR) Not detected Strep agalactiae (PCR) Not detected Strep pneumoniae (PCR) Not detected P. aeruginosa (PCR) Not detected Nilda/B-Vanco Res Genes Not detected KPC-Carbap Res Gene PCR Not detected 08/15/20 08/15/20 08:45 08:45 WBC 11.8 H RBC 3.25 L Hgb 9.0 L Hct 27.0 L MCV 83.1 MCH 27.6 MCHC 33.3 RDW 13.2 Plt Count 219 Neut % (Auto) 66.2 Lymph % (Auto) 19.5 L [place] % (Auto) 12.8 Eos % (Auto) 0.9 L Baso % (Auto) 0.6 Neut # (Auto) 7800 H Lymph # (Auto) 2300 [place] # (Auto) 1500 H Eos # (Auto) 100 Baso # (Auto) 100 Sodium 135 L Potassium 3.3 L Chloride 106 Carbon Dioxide 29 BUN 7 Creatinine 0.65 Estimated GFR > 60.0 BUN/Creatinine Ratio 10.8 Glucose 118 H Hemoglobin A1c Calcium 8.3 L Vancomycin Trough A. baumannii (PCR) Orquidea albicans (PCR) C. glabrata (PCR) C. krusei (PCR) C. parapsilosis (PCR) C. tropicalis (PCR) Enterobacteriac sp PCR E. cloacae complex PCR Enterococcus sp PCR E. coli (PCR) H. influenzae (PCR) Klebsiella oxytoca PCR Klebsiella pneumoniae List. monocytogenes PCR N. meningitidis (PCR) Proteus species (PCR) Serratia marcescens PCR Staphylococcus sp PCR Staph aureus (PCR) mecA-Methicil Res Gene Streptococcus sp PCR Group A Strep (PCR) Strep agalactiae (PCR) Strep pneumoniae (PCR) P. aeruginosa (PCR) Nilda/B-Vanco Res Genes KPC-Carbap Res Gene PCR PFSH Medical History Anxiety Cerebral aneurysm Depression Fibromyalgia History of MRSA infection (2016) HTN (hypertension) Lupus Mini stroke (2018) Panic attacks PTSD (post-traumatic stress disorder) Shaw-Maurizio syndrome TIA (transient ischemic attack) Surgical History H/O left wrist surgery (~2015) History of arthroscopy of both knees History of hysterectomy History of incision and drainage (2016) History of total right hip arthroplasty Hx of bilateral cataract extraction Hx of cholecystectomy (09/2019) Hx of eye surgery (07/2019) Hx of tonsillectomy S/P coil embolization of cerebral aneurysm (11/15/12) Family History Father Leukemia Mother Ovarian cancer Social History household members: children Smoking Status: Former smoker alcohol intake: current Assessment & Plan Assessment & Plan narrative: -POD#3 s/p Right hip irrigation and debridement, femoral head and polyethylene exchange with revision of femoral head and acetabular polyethylene with Dr. Escoto. She is doing well postoperatively. -Intraoperative cultures were positive for pansensitive MSSA from superficial hip cultures which is consistent with her preoperative aspiration. Otherwise cultures were negative. Due to her history of severe side effects with other antibiotics will maintain her on IV Vancomycin Q8hrs. Duration will be 3-6 weeks, guided by her postoperative course. Discharge planning has arranged in home antibiotics for her. PICC line is in place. She will need weekly PICC management, CBC, BMP, CRP and sed rate. -Continue Tylenol and Oxycodone for pain managment. ASA 81mg BID x 4-6 weeks for DVT prophylaxis. -Follow up with Dr. Escoto in 2 weeks for wound check/staple removal. -Anticipate discharge to home this afternoon with her daughter as caregiver, pending final vancomycin trough. Quality VTE Deep Vein Thrombosis/Pulmonary Embolism Present on Admission: No
--- NOTE | 2020-08-15 11:51 | PT.IPTN ---
Current Diagnoses Cellulitis of right lower limb (08/09/20) Surgery Performed Operation Date: 08/12/20 11:15 Actual Procedures p Hip I & D, poly exchange(Right) - Fatou Escoto MD Physical Therapy Treatment Note M2 PT-IP Current Condition Start: 08/13/20 10:07 Freq: Status: Active Protocol: Document 08/13/20 09:35 MB (Rec: 08/13/20 10:24 MB [id number]) Physical Therapy Current Condition Current Condition Evaluation Date 08/13/20 Treatment Diagnosis S/p I&D right hip Onset Date 08/12/2020 Precautions Posterior Hip Precautions No Hip Flexion > 90 degrees,No Hip Internal Rotation,No Hip Adduction Weight Bearing Status Weight Bearing Status Weight Bear as Tolerated M3 PT-IP Subjective Start: 08/13/20 10:07 Freq: Status: Active Protocol: Document 08/15/20 10:38 DE (Rec: 08/15/20 11:07 DE [id number]) Subjective Physical Therapy Visit Type Type Treatment Note Visit Start Time 09:28 Visit Stop Time 09:53 Total Visit Minutes 25 Notes SPT Zion led session under direct supervision of PT Lora. Number of SENIOR CLINICAL RESEARCH ASSOCIATE Visits 0 Physical Therapy Visit Comments Patient Comments Pt is agreeable to PT. Patient Goals To return home with daughter M4 PT-IP Mobility and Gait Start: 08/13/20 10:07 Freq: Status: Active Protocol: Document 08/15/20 10:38 DE (Rec: 08/15/20 11:07 DE [id number]) PT-Bed Mobility Assessment Supine to Sit Supine to Sit Standby Assistance,Bedrails Scooting Scooting to Edge of Bed Standby Assistance PT-Transfer Assessment Sit to and From Stand Sit to and from Stand Contact Guard Assistance,Use of Upper Extremities Equipment Transfer Assistive Device Gait Belt,Front Wheeled Walker Transfers Transfer Destination Toilet Transfer Technique Amb with FWW Transfer Ability Level of Assist Contact Guard Assistance Comments Mobility Comments Pt was supine in bed with elevated HOB upon arrival. Pt completed supine to sit at R EOB from flat bed SBA with use of R bedrail. Pt then performed sit to stand CGA with FWW. No difficulty noted during sit to stand. Pt denied any dizziness or lightheadedness. Pt then amb ~ 200 ft to the stairs SBA with FWW. No loss of balance observed but demonstrated labored breathing. Pt needed cues to keep FWW closer to the body and take smaller steps when turning. Pt performed 3 steps up and down x2 CGA with B railing. Pt was steady throughout stair climbing without any loss of balance. Pt amb ~120 ft with CGA FWW and then requested to sit down in w/c d/t increased fatigue. Pt was wheeled back to the room. Pt requested to use the bathroom. Pt stood up from w/c , amb ~4 ft to toilet, and sat down on toilet CGA with FWW and grab bars. Instructed pt to use call light when she is done and notified RN about it. Gait Assessment Gait Gait Assistance Required: Contact Guard Assist Distance (Feet) 200 Able to Maintain Weight Bearing Status Yes During Gait Assistive Devices Assistive Device Gait Belt,Front Wheeled Walker Orthotic/Prosthetic Devices or Brace: No Gait Deviations General Gait Pattern Antalgic,Decreased Stride Length,Decreased Feet Clearance,Flexed Trunk,Wide Based Gait Factors Limiting Gait Function Factors Limiting Gait Function Decreased Strength,Pain,Poor Balance Comments Gait Comments See mobility comments. Stair Climbing Assessment Evaluation Level of Assist On Stairs Contact Guard Assistance Devices Stair Climbing Assistive Devices Left Railing,Right Railing Technique/Endurance Stair Climbing Direction Ascend and Descend Stair Climbing Technique Step to Step Number of Steps Climbed 3 Stair Climbing Set # Repetitions (reps) 2 Comments Stair Climbing Comments See mobility comments. PT-Balance Assessment Sitting Balance and Reactions Static Sitting Balance Ability Good Dynamic Sitting Balance Ability Good Standing Balance and Reactions Static Standing Balance Ability Good Dynamic Standing Balance Ability Fair Device Used FWW Physical Therapy Treatment Exercises Exercises Ankle Pumps,Gluteal Sets,Quad Sets,Heel Slides Education Education Provided Precautions,Weight Bearing Status,Safety Other Treatments Other Treatment Performed Pt was educated on precautions , safety, and role of PT. M7 PT-IP Assessment and Plan Start: 08/13/20 10:07 Freq: Status: Active Protocol: Document 08/15/20 10:38 DE (Rec: 08/15/20 11:07 DE [id number]) PT Summary Assessment and Plan Potential Rehabilitation Potential Good Status of Condition at Evaluation Evolving Summary Impairments Pain,ROM,Strength,Balance, Transfers,Gait,Activity Tolerance Assessment Summary Pt demonstrated improved amb distance as she amb ~200 ft SBA with FWW. Pt also performed 3 steps up and down x2 CGA with B railing. Pt was stable without any loss of balance throughout amb and stair climbing but demonstrated labored breathing after amb ~100 ft. PT anticipates pt will be safe to d/c home with assistance and FWW. Pt will benefit from HH to improve strength as well as balance and activity tolerance. Frequency of Treatment Frequency Of Treatment Discharge Discharge Recommendations PT Discharge Recommendations Home with 24/7 Assist,Home Health Transportation Needs at Discharge Private Vehicle Treatment was provided by Zion Brown, SPT and supervised by Lora Estevez, PT. I personally reviewed this note and agree with its contents.
[2020-08-15 12:10] LABS: Vancomycin Trough 14.9 ug/mL (10-20)
--- NOTE | 2020-08-15 13:04 | CM.DPC ---
DCP continued: Reviewed chart. Received confirmation from Dr. Landaverde that patient medically stable for d/c today. Patient will be requiring 2-6wks of IV ABX. Order obtained and faxed to selected provider [facility]. TELEPHONE INSTRUMENT SUPERVISOR spoke with Matilde at [facility] and she confirms that they have everything that they need. Matilde reports that [facility] will be sending education courses sales representative to meet with patient and family to provide supplies and do teaching. Patient and daugther/Terra and agreeable. They plan to meet at approximately 3:00pm. No additional needs identified. Patient checking on whether or not she will get home health for therapy. Notified patient that Orthopedic team did not write order. Instructed patient to follow up with Orthopedic team at next appointment to inquiry about HH. Patient verbally aware and agreeable to give TELEPHONE INSTRUMENT SUPERVISOR permission to sign KAY. P: Home today with IV abx trhrough [facility]. ALPESH Chaparro
[2020-08-15 15:00] VITALS: BP 124/74; PULSE 81; RESP 22; TEMP 36; O2SAT 98
--- NOTE | 2020-08-15 15:14 | PC.NURSE ---
Day shift: Paperwork signed and all questions answered. Pt and Pt's daughter are waiting for [facility] to arrive and perform the teaching. Report given to estrella retana RN.
--- NOTE | 2020-08-15 17:04 | PC.NURSE ---
At shift change patient had already been given discharge instructions by day shift RN and was awaiting [facility] for education before leaving. [facility] arrived at 1600, patient left with daughter at 1700 with no concerns or questions about discharge.
== END 2020-08-15 17:05 | disposition home or self-care (01) | DRG 467 ==
LOC: ED 17:19 → AC 17:25
PROVIDERS: Internal Medicine; Nurse Practitioner Family; Orthopaedic Surgery; Admitting Provider Internal Medicine; Emergency Provider Emergency Medicine; Referring Provider Emergency Medicine; Visit Provider Internal Medicine
PROC: 0SR90JZ Replacement of Right Hip Joint with Synthetic Substitute, Open Approach (ICD-10-PCS; CPT 27130; principal; 2020-08-12 11:15)
DX: T84.51XA Infection and inflammatory reaction due to internal right hip prosthesis, initial encounter (principal); L03.115 Cellulitis of right lower limb; H20.9 Unspecified iridocyclitis; D62 Acute posthemorrhagic anemia; B95.61 Methicillin susceptible Staphylococcus aureus infection as the cause of diseases classified elsewhere; R07.9 Chest pain, unspecified; M79.605 Pain in left leg; H20.10 Chronic iridocyclitis, unspecified eye; I10 Essential (primary) hypertension; E66.9 Obesity, unspecified; K21.9 Gastro-esophageal reflux disease without esophagitis; H26.9 Unspecified cataract; Z87.891 Personal history of nicotine dependence; Z79.899 Other long term (current) drug therapy; Z11.59 Encounter for screening for other viral diseases; Z68.39 Body mass index [BMI] 39.0-39.9, adult; Z79.52 Long term (current) use of systemic steroids
CPT/HCPCS: 36415; 36569; 51798; 71045; 71260; 73502; 74177; 80048; 80053; 80202; 81015; 82550; 83036; 83605; 83690; 83735; 84145; 84484; 85025; 85651; 86140; 87040; 87070; 87075; 87077; 87086; 87147; 87150; 87176; 87186; 87205; 87635; 89051; 93005; 93010; 93970; 96365; 96375; 97110; 97116; 97161; 97530; 99282; 99284; C1776; A9270; C9290; J0131; J0330; J1100; J1170; J1642; J1650; J2250; J2270; J2405; J2704; J2765; J3010

== ENCOUNTER 2023-07-02 09:26 | Day surgery (SDC) | payer MEDICARE, MEDICAID, SELFPAY ==
[2020-08-09 18:26] VITALS: BMI 39.6
[2023-06-27 07:16] VITALS: BMI 37.8
[2023-07-02] VITALS (15 sets, daily range): BP systolic 83–125; BP diastolic 45–63; PULSE 53–67; RESP 10–19; TEMP 36.1–36.4; O2SAT 93–100; BMI 37.8
--- NOTE | 2023-07-02 08:04 | DI.RAD.S_ITS ---
PROCEDURE: XR KNEE LT 1TO2V INDICATIONS: TKA TECHNIQUE: 2 view(s) of the knee acquired. COMPARISON: None. FINDINGS: Bones: Patient is status post knee joint arthroplasty. Hardware components are in expected positions. Visualized bony structures are intact. Soft tissues: Overlying postoperative changes are noted. IMPRESSION: Postop changes from left total knee arthroplasty with anatomic left knee alignment. Dictated by: Estrada Kaminski M.D. on 07/02/2023 at 13:46 Approved by: Estrada Kaminski M.D. on 07/02/2023 at 13:46
[2023-07-02] MEDS: ACETAMINOPHEN 325 MG TABLET 975 MG PO (10:00)
[2023-07-02] MEDS: LACTATED RINGERS 1,000 ML 42 ML IV ×2 (10:00→13:28)
[2023-07-02] MEDS: VANCOMYCIN 1,000 MG/200 ML PIGGYBACK 200 MG IV ×2 (10:05→22:13)
[2023-07-02] MEDS: CELECOXIB 200 MG CAPSULE PO (10:22)
--- NOTE | 2023-07-02 10:33 | PM.PREOP ---
Pre-operative Note Interval Note History & Physical reviewed/Exam performed by Physician: Yes Changes to H&P: No
--- NOTE | 2023-07-02 10:35 | PM.OP.1 ---
Operative Date/Time/Diagnoses Date of procedure: 07/02/23 Time of procedure: 11:00 Pre-op diagnosis: Severe left knee OA Post-op diagnosis: same Procedure & Clinicians Procedure: Left total knee arthroplasty Same procedure as scheduled: Yes Indications: The patient has had progressively worsening left knee pain with radiographic changes consistent with arthritis. Non-operative management has failed and the patient has requested total knee replacement. The risks, benefits and alternatives to surgery were discussed with the patient prior to proceeding. Risks discussed included, but were not limited to, failure to relieve pain, stiffness, infection, nerve damage, deep venous thrombosis, pulmonary embolism, stroke, coma, heart attack, permanent paralysis and , as well as the potential need for eventual revision of the prosthetic. Surgeon: Fatou Escoto Supervisor Frame Sample And Pattern: Sonny Rizvi Anesthesia Type: General Operative Notes Findings: Severe left knee oa, soft bone, adequate stability Closure Type: primary Specimen(s): none sent Prosthetic devices, grafts, tissues, transplants, or devices: Escoto and nephew [facility] BCS 2 size 7 femur, size 6 tibia, size 9 tibia poly, 35 x 7-1/2 mm patella Estimated Blood Loss (mL): 250 Blood products transfused: none Tourniquet time (min): 92 Procedure in detail: The patient was seen in the pre-operative area, where the patient identified the left knee as the operative site and this was marked with my initials. The patient received pre-operative antibiotics, and was taken to the operating room and placed on the operative table in the supine position. After satisfactory anesthesia, a supervisor pigment making out was performed. The left leg was encircled with a tourniquet about the proximal thigh, and the leg was prepared from the toes to the tourniquet with ChloroPrep in the usual fashion and draped through sterile drapes. The leg was elevated and exsanguinated with Eschmark bandage and the tourniquet inflated to [250] mmHg pressure. A PA was used in the procedure and was essential for intraoperative retraction and safe implantation of the components. The patient had a severe arthritic knee. She had about a 20 degree flexion contracture preoperatively. She could be flexed to about 100?. She had severe osteophyte formation and a severely restricted range of motion with patella [place]. Made the procedure technically somewhat difficult. The knee was approached through an approximately 18 cm incision centered over the patella and carried into the knee through a medial parapatellar arthrotomy. A portion of the medial and lateral meniscus was resected. Soft tissue was carefully mobilized around the patella the patella was measured with a caliper. Bone was resected from the patella and the patellar height was reconstituted with up an appropriate sized patellar component. A cover was then placed on the patella. A small amount of additional medial and lateral meniscus was resected. The distal femur was cut at 5?. A [+2] cut was used. It looked like an appropriate distal femoral cut and the cut was made without difficulty. An extramedullary guide was used for the tibial cut. 10 mm was resected off the least affected side.The tibia was prepared. The rotation was assessed. The patient was placed in extension residual medial and lateral meniscus as well as any residual bone was carefully resected. [No] additional tibia was resected. Hemostasis was achieved especially posteriorly. Additional local was injected into the posterior capsule. The extension gap was assessed and additional releases for gap balancing were performed as necessary. It was checked with the gap energy assistant. The femoral component was trial was placed and the notch was finished. The rotation was assessed and the appropriate size femoral guide was placed on the distal femur and finishing cuts were made. There was no evidence of notching. The anterior, posterior and chamfer cuts were then made. The posterior osteophytes and soft tissues were then removed. The posterior capsule was injected with part of a mixture of 60 ml 0.25% Marcaine mixed with 20 ml Exparel for post operative pain control. The remainder of this mixture was injected into the capsule and subcutaneous tissues during cement curing. The tibial and femoral components were then placed and the knee placed through a range of motion. Range of motion was [0-130], with good stability throughout the range. The trials were then removed, and the tibia was finished. The bone was prepared with pulsatile lavage, and dried with a sponge. Cement was applied and the final prosthetics placed. Excess cement was removed during and after cement curing. A brief Betadine soak was performed. After confirming there was no extruded cement posteriorly, the final tibial insert was placed. The knee was copiously irrigated and the tourniquet deflated. Hemostasis was obtained with the Bovie cautery. A drain was placed and brought out superolaterally. The capsule was closed with interrupted nonabsorbable suture. The subcutaneous layer was closed with barbed sutures, and the skin with a running 3-0 V-Lock suture and Surgical glue. An Aquacel Ag dressing was applied and the patient was taken to recovery having tolerated the procedure well. Complications: none Post-operative Condition: stable Disposition: Acute Care Plan for aftercare: The patient will be maintained on a standard total knee replacement protocol with weight bearing as tolerated. The patient will receive at a minimum aspirin. 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 We can talk to her and her family decide if she needs more aggressive DVT prophylaxis. She is somewhat sedentary and general. And sequential compression devices for DVT prophylaxis. The patient will be discharged home when safe for the home environment.
--- NOTE | 2023-07-02 10:44 | SUR.OPER ---
Supine on padded OR bed. Pillow under head, arms secured on padded armboards <90 degree abduction. Safety belt across torso. Non-operative leg secured with tape over blanket over lower leg. Operative leg secured in DeMayo positioner. Foam padded brace at thigh of operative leg.
[2023-07-02] MEDS: BUPIVACAINE 0.25% (PF) 60 ML, EPINEPHrine 0.3 MG INJ (11:23)
[2023-07-02] MEDS: BUPIVACAINE LIPOSOME 266 MG/20 ML VIAL INJ (11:23)
[2023-07-02] MEDS: OXYCODONE IR 5 MG TABLET PO ×3 (13:47→17:24)
[2023-07-02] MEDS: HYDROMORPHONE 1 MG INJ IV (13:49)
--- NOTE | 2023-07-02 14:01 | SUR.PHASEI ---
IS provided. Instructions given. Patient able to reach 750mls.
--- NOTE | 2023-07-02 14:11 | SUR.PHASEI ---
Zac Mandujano notified patient c/o lung pain with deep breaths. VS stable. Lungs clear. No new orders.
--- NOTE | 2023-07-02 14:16 | SUR.PHASEI ---
Report called to Nohemi
[2023-07-02] MEDS: hydrOXYzine pamoate 25 MG CAPSULE 50 MG PO (16:56)
[2023-07-02] MEDS: LACTATED RINGERS 1,000 ML 100 ML IV ×2 (16:58→21:17)
--- NOTE | 2023-07-02 17:47 | PC.NURSE ---
Patient arrived to room 203 this afternoon at 1430. VSS, afebrile on RA. She is initially lethargic and reports numbness to Left thigh.PHILIPPE dressing with green light. Hemovac unclamped at 1515 per instructions. Hemovac with minimal output of blood (40cc). LR at 100ml/hr. Patient is able to tolerate dinner well without n/v. She is able to void without difficulty. She reports pain increased this evening after 5mg of oxycodone at 9/10 and she is given another 5mg after 30 min for a total of 10 mg at 1730. Encouraged to do ankles waves, ice packs to knee, encouraged IS. Daughter at bedside supportive.
[2023-07-02] MEDS: HYDROMORPHONE 2 MG TABLET PO ×2 (18:38→19:59)
[2023-07-02] MEDS: ASPIRIN EC 81 MG TABLET PO (21:02)
[2023-07-02] MEDS: ATORVASTATIN 20 MG TABLET PO (21:02)
[2023-07-02] MEDS: DOCUSATE 100 MG CAPSULE PO (21:03)
[2023-07-02] MEDS: GABAPENTIN 300 MG CAPSULE PO (21:05)
[2023-07-02] MEDS: prednisoLONE OPHTH SUSP 1 DROPS EYE-BOTH (21:05)
[2023-07-02] MEDS: OXYCODONE IR 10 MG TABLET PO (21:15)
[2023-07-02] MEDS: MELATONIN 3 MG TABLET 9 MG PO (22:26)
[2023-07-02] MEDS: HYDROMORPHONE 2 MG INJ IV (22:26)
--- NOTE | 2023-07-02 23:39 | PC.NURSE ---
Patient is alert and oriented. Breath sounds CTA with RA sat of 96%. HRR but bradycardic with rate of 57 and BP low at 104/57 so Metoprolol held. Denied nausea. BT present and is passing flatus. Has external catheter but became displaced so was incontinent of urine. Is being repositioned q2h as she will allow but was having consistent 9/10 pain with increase with any movement so hesitant to be repositioned; medicated with dilaudid and oxycodone and still in 9/[address] Matamoros informed and order received for 1x dose of IV dilaudid which was given and patient was sleeping when reassessed. Awake short time later and able to be repositioned without her screaming and she states pain is so much better and rated severity as 7/10 but states it is tolerable; has ice pack to knee. Does still have numbness in left thigh but denies numbness in foot. Is able to wiggle toes and ankle but unable to lift left leg off bed. PHILIPPE dressing is CDI and functioning; wrapped with heydi. Hemovac is intact and compressed. Has not yet been out of bed so gait not assessed. Is wearing bilateral calf SCD's. Fall risk score is moderate and bed alarm is activated. Daughter rooming in.
[2023-07-03 00:27] VITALS: BP 108/54; PULSE 59; RESP 18; TEMP 36.1; O2SAT 100
[2023-07-03] MEDS: HYDROMORPHONE 4 MG TABLET PO ×6 (02:00→21:19)
[2023-07-03 04:33] VITALS: BP 99/47; PULSE 54; RESP 19; TEMP 36.5; O2SAT 99
[2023-07-03 07:08] LABS: Hematocrit 32.4 % (36-46); Hemoglobin 10.7 g/dL (12.0-16.0)
--- NOTE | 2023-07-03 07:17 | P.DS_ITS ---
History of Present Illness History of Present Illness Date Patient Seen: 07/03/23 Time Patient Seen: 07:18 Chief complaint: OPB Narrative: Operative Date/Time/Diagnoses Date of procedure: 07/02/23 Time of procedure: 11:00 Pre-op diagnosis: Severe left knee OA Post-op diagnosis: same Procedure & Clinicians Procedure: Left total knee arthroplasty Same procedure as scheduled: Yes Indications: The patient has had progressively worsening left knee pain with radiographic changes consistent with arthritis. Non-operative management has failed and the patient has requested total knee replacement. The risks, benefits and alternatives to surgery were discussed with the patient prior to proceeding. Risks discussed included, but were not limited to, failure to relieve pain, stiffness, infection, nerve damage, deep venous thrombosis, pulmonary embolism, stroke, coma, heart attack, permanent paralysis and , as well as the potential need for eventual revision of the prosthetic. Surgeon: Fatou Escoto Gas Roller Operator: Sonny Rizvi Anesthesia Type: General Operative Notes Findings: Severe left knee oa, soft bone, adequate stability Closure Type: primary Specimen(s): none sent Prosthetic devices, grafts, tissues, transplants, or devices: Escoto and nephew vasquez BCS 2 size 7 femur, size 6 tibia, size 9 tibia poly, 35 x 7-1/2 mm patella Estimated Blood Loss (mL): 250 Blood products transfused: none Tourniquet time (min): 92 Discharge Providers Provider Discharge Date: 07/03/23 Consults: 06/27/23 09:46 Consult to Anesthesiology Routine Comment: Consulting Provider: Anesthesiologist Reason for consultation: Surgeon requested re: Cardiac 07/02/23 08:04 Consult to Anesthesiology Routine Comment: Consulting Provider: Anesthesiologist Reason for consultation: Regional block for post operative pain control 07/02/23 15:15 Consult to Discharge Planning Routine Comment: Consult to Occupational Therapy Evaluate & Treat Comment: Physician Instructions: Evaluate and treat Consult to Physical Therapy Evaluate & Treat Comment: Physician Instructions: postop TKA protocol Discharge provider: Yohana Ridley PA-C Summary Hospital Course Discharge Diagnosis: Left knee osteoarthritis, s/p left total knee arthroplasty Hospital Course: Ms Swartz's hospital course was remarkable for difficulty with pain control. She is chronically taking oxycodone/APAP 5/325 BID as prescribed by her PCP and was advised to continue this after surgery with additional medication as prescribed by our office. She has been given oxycodone and Vistaril since surgery and pain is improving. On the morning of POD# 1, she had not yet been OOB or worked w/ PT. She was eating and voiding without difficulty and wanted to go home later in the day if possible. Exam Vital Signs (past 8 hours): - 07/03/23 00:27 07/03/23 04:33 Temperature 96.9 F L 97.7 F Pulse Rate 59 L 54 L Respiratory Rate 18 19 Blood Pressure 108/54 L 99/47 L Pulse Oximetry 100 99 Oxygen Flow Rate 0 0 Oxygen Delivery Method Room Air Oxygen Flow Rate 0 Narrative Exam Narrative: 3/5 PF, 4/5 EHL and DF; hip flexors, quadriceps, hamstrings not tested d/t pain. Sensation to light touch intact throughout LLE. Calf soft and compressible. JEANNIE wrap over PHILIPPE CDI, PHILIPPE functioning. Hemovac w/ 40mL of bloody drainage o/n. Objective Labs 07/03/23 06:40 Labs: Laboratory Results - last 24 hr 07/03/23 06:40 Hgb 10.7 L Hct 32.4 L PFSH Medical History (Updated 06/27/23 @ 09:32 by Brenda Soriano RN) Uveitis Positive blood cultures (10/2021) Hypotension (10/2021) History of DVT (deep vein thrombosis) History of CVA (cerebrovascular accident) (2016) History of COVID-19 (07/2021) Thrombocytopenia (2021) YURI (acute kidney injury) (10/2021) History of COVID-19 (11/15/21) NSTEMI (non-ST elevated myocardial infarction) (10/2021) Shaw-Maurizio syndrome Lupus TIA (transient ischemic attack) Cerebral aneurysm (2012) History of MRSA infection (2015) PTSD (post-traumatic stress disorder) Depression Anxiety HTN (hypertension) Fibromyalgia Mini stroke (2017) Panic attacks Surgical History (Updated 07/03/23 @ 07:30 by Yohana Ridley PA-C) History of total right hip arthroplasty History of incision and drainage (2015) Hx of tonsillectomy Hx of eye surgery (07/2019) Hx of bilateral cataract extraction H/O left wrist surgery (~2015) History of arthroscopy of both knees History of hysterectomy S/P coil embolization of cerebral aneurysm (11/15/12) Hx of cholecystectomy (09/2019) Family History Father Leukemia Mother Ovarian cancer Social History household members: children Smoking Status: Former smoker alcohol intake: current Discharge Assessment & Plan Assessment and Plan Assessment: Left knee osteoarthritis, s/p left total knee arthroplasty Plan of Treatment: Work w/ PT, continue multimodal pain control. Hopeful d/c home w/ daughter later today if she passes PT eval and pain is well-managed. Pt has h/o DVT and says it was many years ago; she was 28 yo and taking control. She is not on estrogen supplementation currently and has no other risk factors other than recent surgery; ASA BID will likely be adequate for VTE prophylaxis. Discharge Plan Discharge Plan Patient Disposition: Home Discharge orders & Medications Discharge Orders: Discharge (Order); Ordered 07/03/23 Ordered By: Yohana Ridley Prescriptions: New aspirin 81 mg Tablet,Delayed Release (Dr/Ec) 81 mg PO BID Qty: 90 0RF docusate sodium 100 mg Capsule 100 mg PO BID PRN (Reason: constipation) Qty: 60 1RF oxycodone 5 mg Tablet 5 mg PO Q4-6H PRN (Reason: Pain, Moderate (4-6)) Qty: 60 0RF aspirin 81 mg tablet,chewable 81 mg PO BID Qty: 90 0RF docusate sodium [Colace] 100 mg capsule 100 mg PO BID PRN (Reason: constipation) Qty: 60 1RF oxycodone 5 mg tablet 5 mg PO Q4H PRN (Reason: pain (scale score 7-10)) Qty: 60 0RF Continued prednisolone acetate 1 % Drops,Suspension 1 drp EYE-BOTH TID ibuprofen 200 mg Capsule 600 mg PO Q6H PRN (Reason: Pain) hydroxyzine HCl 50 mg Tablet 50 mg PO TID PRN (Reason: Anxiety) gabapentin 100 mg Capsule 100 mg PO SEEINSTR Rx Instructions: 1 tab qam, qnoon, 3 tabs at bedtime albuterol sulfate 90 mcg/actuation Hfa Aerosol Inhaler 2 puff INHALATION Q4-6H PRN (Reason: Shortness Of Breath) oxycodone 5 mg Tablet 5 mg PO Q4-6H PRN (Reason: Pain, Moderate (4-6)) Qty: 40 0RF Rx Instructions: 1-2 tabs po every 4-6 hours as needed for severe pain. exempt. post op pain. atorvastatin 20 mg Tablet 20 mg PO BEDTIME metoprolol succinate 50 mg Tablet Extended Release 24 Hr 50 mg PO BEDTIME spironolactone 25 mg Tablet 25 mg PO DAILY citalopram 20 mg Tablet 20 mg PO DAILY Follow up/Referrals: Fatou Escoto MD [Physician] - As previously scheduled (Follow up with Parth Burr PA-C, on 07/16/2023 @ 2:[address] [facility] office in [place].) Diet/Activity/Treatments Diet: Diet as Tolerated Activity: Walk frequently! Cold/Heat Therapy: Ice to knee as needed for pain. Skin/Wound/Dressing Care Report to your healthcare provider any signs of infection, such as:: chills, fever, night sweats, unusual drainage and unusual redness Dressing: May remove JEANNIE wrap and shower on 07/05/2023. Leave dressing in place until follow up in office. No bathing or otherwise soaking incision. If dressing becomes saturated inside, call the office. Visit Report/Discharge Packet Instructions: DI for Knee Replacement, DI for Prescription Opioid Use Stand Alone Forms: Patient Portal/API, Surgery Discharge Discharge Data Attending Provider: Fatou Escoto
--- NOTE | 2023-07-03 07:18 | P.DS_ITS ---
History of Present Illness History of Present Illness Chief complaint: OPB Discharge Providers Provider Consults: 06/27/23 09:46 Consult to Anesthesiology Routine Comment: Consulting Provider: Anesthesiologist Reason for consultation: Surgeon requested re: Cardiac 07/02/23 08:04 Consult to Anesthesiology Routine Comment: Consulting Provider: Anesthesiologist Reason for consultation: Regional block for post operative pain control 07/02/23 15:15 Consult to Discharge Planning Routine Comment: Consult to Occupational Therapy Evaluate & Treat Comment: Physician Instructions: Evaluate and treat Consult to Physical Therapy Evaluate & Treat Comment: Physician Instructions: postop TKA protocol Discharge provider: Juan Daniel Burr PA-C Exam Vital Signs (past 8 hours): - 07/03/23 00:27 07/03/23 04:33 Temperature 96.9 F L 97.7 F Pulse Rate 59 L 54 L Respiratory Rate 18 19 Blood Pressure 108/54 L 99/47 L Pulse Oximetry 100 99 Oxygen Flow Rate 0 0 Oxygen Delivery Method Room Air Oxygen Flow Rate 0 Objective Labs 07/03/23 06:40 Labs: Laboratory Results - last 24 hr 07/03/23 06:40 Hgb 10.7 L Hct 32.4 L [facility] Medical History (Updated 06/27/23 @ 09:32 by Brenda Soriano RN) Uveitis Positive blood cultures (10/2021) Hypotension (10/2021) History of DVT (deep vein thrombosis) History of CVA (cerebrovascular accident) (2016) History of COVID-19 (07/2021) Thrombocytopenia (2021) YURI (acute kidney injury) (10/2021) History of COVID-19 (11/15/21) NSTEMI (non-ST elevated myocardial infarction) (10/2021) Shaw-Maurizio syndrome Lupus TIA (transient ischemic attack) Cerebral aneurysm (2012) History of MRSA infection (2015) PTSD (post-traumatic stress disorder) Depression Anxiety HTN (hypertension) Fibromyalgia Mini stroke (2017) Panic attacks Surgical History (Updated 07/03/23 @ 07:30 by Yohana Ridley PA-C) History of total right hip arthroplasty History of incision and drainage (2015) Hx of tonsillectomy Hx of eye surgery (07/2019) Hx of bilateral cataract extraction H/O left wrist surgery (~2015) History of arthroscopy of both knees History of hysterectomy S/P coil embolization of cerebral aneurysm (11/15/12) Hx of cholecystectomy (09/2019) Family History Father Leukemia Mother Ovarian cancer Social History household members: family and children Smoking Status: Former smoker alcohol intake: current Discharge Assessment & Plan Assessment and Plan Assessment: Left knee osteoarthritis, s/p left total knee arthroplasty Plan of Treatment: Work w/ PT, continue multimodal pain control. Hopeful d/c home w/ daughter later today if she passes PT eval and pain is well-managed. Pt has h/o DVT and says it was many years ago; she was 28 yo and taking control. She is not on estrogen supplementation currently and has no other risk factors other than recent surgery; ASA BID will likely be adequate for VTE prophylaxis. Discharge Plan Discharge Plan Patient Disposition: Home Discharge orders & Medications Prescriptions: New aspirin 81 mg Tablet,Delayed Release (Dr/Ec) 81 mg PO BID Qty: 90 0RF docusate sodium 100 mg Capsule 100 mg PO BID PRN (Reason: constipation) Qty: 60 1RF oxycodone 5 mg Tablet 5 mg PO Q4-6H PRN (Reason: Pain, Moderate (4-6)) Qty: 60 0RF aspirin 81 mg tablet,chewable 81 mg PO BID Qty: 90 0RF docusate sodium [Colace] 100 mg capsule 100 mg PO BID PRN (Reason: constipation) Qty: 60 1RF oxycodone 5 mg tablet 5 mg PO Q4H PRN (Reason: pain (scale score 7-10)) Qty: 60 0RF Continued prednisolone acetate 1 % Drops,Suspension 1 drp EYE-BOTH TID ibuprofen 200 mg Capsule 600 mg PO Q6H PRN (Reason: Pain) hydroxyzine HCl 50 mg Tablet 50 mg PO TID PRN (Reason: Anxiety) gabapentin 100 mg Capsule 100 mg PO SEEINSTR Rx Instructions: 1 tab qam, qnoon, 3 tabs at bedtime albuterol sulfate 90 mcg/actuation Hfa Aerosol Inhaler 2 puff INHALATION Q4-6H PRN (Reason: Shortness Of Breath) oxycodone 5 mg Tablet 5 mg PO Q4-6H PRN (Reason: Pain, Moderate (4-6)) Qty: 40 0RF Rx Instructions: 1-2 tabs po every 4-6 hours as needed for severe pain. exempt. post op pain. atorvastatin 20 mg Tablet 20 mg PO BEDTIME metoprolol succinate 50 mg Tablet Extended Release 24 Hr 50 mg PO BEDTIME spironolactone 25 mg Tablet 25 mg PO DAILY citalopram 20 mg Tablet 20 mg PO DAILY Follow up/Referrals: Fatou Escoto MD [Physician] - As previously scheduled (Follow up with Parth Burr PA-C, on 07/16/2023 @ 2:00 pm at [facility] office in [place].) Diet/Activity/Treatments Diet: Diet as Tolerated Activity: Walk frequently! Cold/Heat Therapy: Ice to knee as needed for pain. Skin/Wound/Dressing Care Report to your healthcare provider any signs of infection, such as:: chills, fever, night sweats, unusual drainage and unusual redness Dressing: May remove JEANNIE wrap and shower on 07/05/2023. Leave PHILIPPE dressing in place until follow up in office. In 5-7 days, the battery will , at which point you can cut off the battery pack and most of the tubing; leave the dressing in place. No bathing or otherwise soaking incision. If dressing becomes saturated inside, call the office. Visit Report/Discharge Packet Instructions: DI for Knee Replacement, DI for Prescription Opioid Use Stand Alone Forms: Patient Portal/API, Surgery Discharge Discharge Data Attending Provider: Fatou Escoto
[2023-07-03 07:36] VITALS: BP 100/52; PULSE 61; RESP 18; TEMP 37; O2SAT 100
[2023-07-03] MEDS: polyethylene glycoL 3350 17 GM POWD.PACK PO (08:30)
[2023-07-03] MEDS: SPIRONOLACTONE 25 MG TABLET PO (08:30)
[2023-07-03] MEDS: ASPIRIN EC 81 MG TABLET PO ×2 (08:30→20:17)
[2023-07-03] MEDS: DOCUSATE 100 MG CAPSULE PO ×2 (08:30→20:17)
[2023-07-03] MEDS: GABAPENTIN 100 MG CAPSULE PO ×2 (08:31→11:24)
[2023-07-03] MEDS: CITALOPRAM 10 MG TABLET 20 MG PO (08:31)
[2023-07-03] MEDS: prednisoLONE OPHTH SUSP 1 DROPS EYE-BOTH ×3 (08:31→20:18)
[2023-07-03] MEDS: IBUPROFEN 400 MG TABLET PO (08:31)
[2023-07-03] MEDS: hydrOXYzine pamoate 25 MG CAPSULE 50 MG PO (09:36)
--- NOTE | 2023-07-03 09:40 | PT.IIE ---
Current Diagnoses Unilateral primary osteoarthritis, left knee (07/02/23) Presence of unspecified artificial knee joint (07/02/23) Surgery Performed Operation Date: 07/02/23 10:45 Actual Procedures p Total Knee Arthroplasty(Left) - Fatou Escoto MD Surgical History (Last Updated 06/27/23 @ 09:32 by Brenda Soriano RN) H/O left wrist surgery (~2015) History of arthroscopy of both knees History of hysterectomy History of incision and drainage (2015) History of total right hip arthroplasty Hx of bilateral cataract extraction Hx of cholecystectomy (09/2019) Hx of eye surgery (07/2019) Hx of tonsillectomy S/P coil embolization of cerebral aneurysm (11/15/12) Medical History (Last Updated 06/27/23 @ 09:32 by Brenda Soriano RN) YURI (acute kidney injury) (10/2021) Anxiety Cerebral aneurysm (2012) Depression Fibromyalgia History of COVID-19 (11/15/21) History of COVID-19 (07/2021) History of CVA (cerebrovascular accident) (2016) History of DVT (deep vein thrombosis) History of MRSA infection (2015) HTN (hypertension) Hypotension (10/2021) Lupus Mini stroke (2017) NSTEMI (non-ST elevated myocardial infarction) (10/2021) Panic attacks Positive blood cultures (10/2021) PTSD (post-traumatic stress disorder) Shaw-Maurizio syndrome Thrombocytopenia (2021) TIA (transient ischemic attack) Uveitis Physical Therapy Inpatient Evaluation/Re-Eval M1 PT/OT-IP Prior Functional Status Start: 07/03/23 13:00 Freq: NEEDED Status: Active Protocol: Document 07/03/23 09:40 AB (Rec: 07/03/23 13:19 AB [id number]) Medical Review Prior Functional Status Medical History Reviewed Yes Communication able to make needs known; with slight confusion Mobility and Gait pt stated that she is modified independent with bed mobility but daughter provided assist with transfers and ambulation using either a 4WW or SPC depending on pt's pain level. Assistance provided by daughter also varies depending on pt's pain level. pt stated that she is limited with ambulation due to pain. Prior Functional Level (Other details) pt has h/o R SCOT 2021 and plans to have R TKA after she heals from her current R TKA per pt Social History Household Members family,children Living Arrangements House Number of Floors (Floors) Two Floors Number of Stairs To Enter/Railing? pt stays on the main level of the house has 3 steps L rail ascending to enter the house Home Environment Standard Height Toilet,Tub/ Shower Home Equipment Four Wheel Walker,Straight Cane,Shower Seat with Backrest ,Hand Held Shower Additional Social History Comment pt's daughter is her caregiver ; pt also lives with her TEDDY and grandson. M2 PT-IP Current Condition Start: 07/03/23 13:00 Freq: NEEDED Status: Active Protocol: Document 07/03/23 09:40 AB (Rec: 07/03/23 13:19 AB [id number]) Physical Therapy Current Condition Current Condition Evaluation Date 07/03/23 Treatment Diagnosis s/p L TKA; difficulty in walking Onset Date 07/02/23 M3 PT-IP Subjective Start: 07/03/23 13:00 Freq: NEEDED Status: Active Protocol: Document 07/03/23 09:40 AB (Rec: 07/03/23 13:19 AB [id number]) Subjective Physical Therapy Visit Type Type Initial Evaluation Visit Start Time 09:40 Visit Stop Time 10:40 Total Visit Minutes 60 Number of MECHANICAL TECH Visits 0 Therapy Pain Assessment Pain When Pain Assessed At Rest Pain Present Pain Present Pain Reported Location Left Knee Intensity 10 Scale Used Numeric (0 - 10) Pain Management Techniques Apply Cold,Distraction, Modification of Treatment,Re- positioning,Timing of Activity with Medications M4 PT-IP Mobility and Gait Start: 07/03/23 13:00 Freq: NEEDED Status: Active Protocol: Document 07/03/23 09:40 AB (Rec: 07/03/23 13:19 AB [id number]) PT-Bed Mobility Assessment Supine to Sit Supine to Sit Moderate Assistance PT-Transfer Assessment Sit to and From Stand Sit to and from Stand Maximum Assistance,1 Person Assistance,2 Person Assistance ,Use of Upper Extremities Equipment Transfer Assistive Device Gait Belt,Front Wheeled Walker Orthotic/Prosthetic Devices or Brace: No Transfers Transfer Destination Chair Transfer Technique Stand Step Pivot Transfer Ability Level of Assist Maximum Assistance,2 Person Assistance,Use of Upper Extremities Comments Mobility Comments pt supine in bed. agreeeable to do PT. Daughter in room with pt. BP stable. heel slides conducted prior to mobility. c/o increase pain and guarding with movement on LLE. pt completed supine to sit x 2 attempts: mod A and max cues. pt able to sit on EOB min A. increase LLE guarding and c/ o increase L knee pain. completed sit to stand max A x 1 with 2 attempts and pt unable to tolerate standing needing to sit back on EOB. Nurse came in to assist. sit to stand max A x 2 and max cues and completed step transfer to chair using FWW max A x 2 and max cues. slight L knee buckling noted. pt also tends to become anxious due to pain. pt agreed to sit up on chair. unable to ambulate at this time. positioned on the chair . call light and table placed within reach. informed pt and daughter regarding d/c plan SNF vs home with / and HHPt depending on progress and assistance daughter will be able to provide. Both understood. Gait Assessment Comments Gait Comments unable to ambulate at this time PT-Balance Assessment Sitting Balance and Reactions Static Sitting Balance Ability Good Dynamic Sitting Balance Ability Fair Standing Balance and Reactions Static Standing Balance Ability Poor Dynamic Standing Balance Ability Poor Device Used FWW M5 PT-IP Objective Assessments Start: 07/03/23 13:00 Freq: NEEDED Status: Active Protocol: Document 07/03/23 09:40 AB (Rec: 07/03/23 13:19 AB [id number]) Orientation Orientation/Cognition Level of Alertness Alert Orientation Name,Place,Situation Language Function Ability No Deficits Noted Safety Awareness Decreased Safety Awareness Memory Description Short Term Impaired Gross Range of Motion Lower Extremity ROM Assessment Left Impaired Impairments L knee flexion: ~ 50 deg L knee extension: ~ 20 degrees less to 0 Strength Lower Extremity Strength Assessment Bilaterally Impaired Comments Strength Comments RLE:4-/5 LLE: 3-/5 Coordination Assessment Gross Coordination Gross Coordination WNL Sensation Assessment Sensation Gross Sensation WNL Muscle Tone Muscle Tone WNL Yes M6 PT-IP Treatment Start: 07/03/23 13:00 Freq: NEEDED Status: Active Protocol: Document 07/03/23 09:40 AB (Rec: 07/03/23 13:19 AB [id number]) Physical Therapy Treatment Exercises Exercises Heel Slides Education Education Provided Precautions,Weight Bearing Status,Post-Op Packet,Safety M7 PT-IP Assessment and Plan Start: 07/03/23 13:00 Freq: NEEDED Status: Active Protocol: Document 07/03/23 09:40 AB (Rec: 07/03/23 13:19 [id number]) PT Summary Assessment and Plan Potential Rehabilitation Potential Fair Status of Condition at Evaluation Evolving Summary Impairments Pain,ROM,Strength,Balance, Coordination,Sensation,Tone, Cognition,Bed Mobility, Transfers,Gait,Activity Tolerance Assessment Summary pt is a 67 y/o F who underwent L TKA POD 1. pt with c/o increase pain affecting mobility and activity tolerance. Pt currently requiring max A x 2 for transfers using FWW and unable to ambulate at this time. pt plans to go home with daughter to assist and depending on pt's progress, will conduct caregiver training when appropriate. At this time, pt will need SNF rehab. will continue to assess progress. Goals Bed Mobility Goal Standby Assistance Transfer Goal Contact Guard Assistance,Front Wheeled Walker Gait Goal Contact Guard Assistance,Front Wheel Walker Gait Distance 50 Other Goals improve bed mobility, transfers and ambulation using FWW/ LRAD 150 ft SBA up/down 3 steps L rail SBA Days to Meet Goals 10 Frequency of Treatment Frequency Of Treatment Twice a Day Treatment Plan Physical Therapy Treatment Plan Bed Mobility Training,Transfer Training,Gait Training, Therapeutic Exercise,Balance Retraining,Post Op Education, Discharge Planning,Hot or Cold Pack,Neuromuscular Re-ed, Coordination Retraining,Manual Therapy Other Recommendations and Next Treatment caregiver training when Focus appropriate Weight Bearing Status Weight Bearing Status Weight Bear as Tolerated Allowed Weight Bearing Amount (enter % LLE WBAT or #) (%) Recommendations To Nursing Amount of Assist Needed 2 Person Assist Discharge Recommendations PT Discharge Recommendations Home with 08/04 Assist Available,Home Health,SNF Rehab,Home vs SNF Equipment Needed for Home Before FWW Discharge Transportation Needs at Discharge Private Vehicle,Wheelchair/ Cabulance
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
--- NOTE | 2023-07-03 13:20 | PT.IPTN ---
Current Diagnoses Unilateral primary osteoarthritis, left knee (07/02/23) Presence of unspecified artificial knee joint (07/02/23) Surgery Performed Operation Date: 07/02/23 10:45 Actual Procedures p Total Knee Arthroplasty(Left) - Fatou Escoto MD Physical Therapy Treatment Note M2 PT-IP Current Condition Start: 07/03/23 13:00 Freq: NEEDED Status: Active Protocol: Document 07/03/23 09:40 AB (Rec: 07/03/23 13:19 AB [id number]) Physical Therapy Current Condition Current Condition Evaluation Date 07/03/23 Treatment Diagnosis s/p L TKA; difficulty in walking Onset Date 07/02/23 M3 PT-IP Subjective Start: 07/03/23 13:00 Freq: NEEDED Status: Active Protocol: Document 07/03/23 13:20 AB (Rec: 07/03/23 17:15 AB [email or web address]) Subjective Physical Therapy Visit Type Type Treatment Note Visit Start Time 13:20 Visit Stop Time 14:15 Total Visit Minutes 55 Number of COMMERCIAL [employer] LENDER Visits 0 Physical Therapy Visit Comments Patient Comments agreeable to do PT Therapy Pain Assessment Pain When Pain Assessed At Rest Pain Present Pain Present Pain Reported Location Left Knee Intensity 10 Scale Used Numeric (0 - 10) Pain Management Techniques Distraction,Modification of Treatment,Re-positioning, Timing of Activity with Medications M4 PT-IP Mobility and Gait Start: 07/03/23 13:00 Freq: NEEDED Status: Active Protocol: Document 07/03/23 13:20 AB (Rec: 07/03/23 17:15 AB [id number]) PT-Transfer Assessment Sit to and From Stand Sit to and from Stand Moderate Assistance,1 Person Assistance,Use of Upper Extremities Equipment Transfer Assistive Device Gait Belt,Front Wheeled Walker Orthotic/Prosthetic Devices or Brace: No Comments Mobility Comments pt sitting on the chair. daughter in room. pt and daughter stated that supervisor case loading informed them that they have to d/c today due to insurance coverage. informed pt and daughter that pt will focus on PT at this time and will assess mobility and d/c plan afterwards. pt agreed to do PT. completed sit to stand mod A and max cues. ambulated in room using FWW mod A ~ 5 ft. c/o increase L knee pain with each step needing to pause. pt sat back on chair. Caregiver training initiated. educated daughter on how to use safety belt and how to assist pt. daughter was able to put safety belt on pt. assisted pt with sit to stand mod A and ambulated pt ~ 10 ft to EOB using FWW. pt c/o increase pain and crying. instructed to take a deep breath. asked pt if she want to do stairs and initially stated that she can't but then agreed. pt completed sit to stand with daughter assisting mod A and ambulated ~ 20 ft using FWW mod A. stated that L knee feels like it is going to give out. assisted pt towards the stairs using w/c. educated pt and daughter with stair climbing. pt completed up one step holding on to L rail with B hands max A x 1-2 x 3 attempts to get LE up the stairs. pt unable to descent and assisted to the w/c max A x 2 and max cues. c/o increase L knee pain. assisted pt back to her room. Left pt on w/c with OT. set up another caregiver training tomorrow at 9 am. daughter stated that they were able to get a FWW and w/c for pt to use. informed supervisor case loading regarding pt's mobility, assistance needed and inability to do stairs to get into the house. Gait Assessment Gait Gait Assistance Required: Moderate Assistance Distance (Feet) 20 Able to Maintain Weight Bearing Status Yes During Gait Assistive Devices Assistive Device Gait Belt,Front Wheeled Walker Orthotic/Prosthetic Devices or Brace: No Gait Deviations General Gait Pattern Antalgic,Decreased Stride Length,Decreased Feet Clearance,Step-to Gait Factors Limiting Gait Function Factors Limiting Gait Function Decreased Activity Tolerance, Decreased Strength,Limited Range of Motion,Pain,Poor Balance,Poor Safety Awareness Stair Climbing Assessment Evaluation Level of Assist On Stairs Maximal Assistance,1 Person Assistance,2 Person Assistance Devices Stair Climbing Assistive Devices Left Railing Technique/Endurance Stair Climbing Direction Ascend Stair Climbing Technique Step to Step Number of Steps Climbed 1 Stair Climbing Set # Repetitions (reps) 1 Comments Stair Climbing Comments pls refer to mobility section for details M5 PT-IP Objective Assessments Start: 07/03/23 13:00 Freq: NEEDED Status: Active Protocol: Document 07/03/23 09:40 AB (Rec: 07/03/23 13:19 AB [id number]) Orientation Orientation/Cognition Level of Alertness Alert Orientation Name,Place,Situation Language Function Ability No Deficits Noted Safety Awareness Decreased Safety Awareness Memory Description Short Term Impaired Gross Range of Motion Lower Extremity ROM Assessment Left Impaired Impairments L knee flexion: ~ 50 deg L knee extension: ~ 20 degrees less to 0 Strength Lower Extremity Strength Assessment Bilaterally Impaired Comments Strength Comments RLE:4-/5 LLE: 3-/5 Coordination Assessment Gross Coordination Gross Coordination WNL Sensation Assessment Sensation Gross Sensation WNL Muscle Tone Muscle Tone WNL Yes M6 PT-IP Treatment Start: 07/03/23 13:00 Freq: NEEDED Status: Active Protocol: Document 07/03/23 13:20 AB (Rec: 07/03/23 17:15 AB [email or web address]) Physical Therapy Treatment Education Education Provided Safety M7 PT-IP Assessment and Plan Start: 07/03/23 13:00 Freq: NEEDED Status: Active Protocol: Document 07/03/23 13:20 AB (Rec: 07/03/23 17:15 AB [email or web address]) PT Summary Assessment and Plan Potential Rehabilitation Potential Fair Summary Impairments Pain,ROM,Strength,Balance, Coordination,Sensation,Tone, Cognition,Bed Mobility, Transfers,Gait,Activity Tolerance Progress Towards Goals Slow Progress due to Pain Assessment Summary pt improving slowly and able to ambulate using FWW mod A but only tolerated ~ 20 ft. caregiver training initiated but requires further training. attemped stair climbing as pt has 3 steps with L rail ascending to enter the house. pt unable to complete stair safely. caregiver training set up again for tomorrow at 9 am. d/c plan depending on progress: SNF vs home with 24/ 7 assist and HHPT Goals Bed Mobility Goal Standby Assistance Transfer Goal Contact Guard Assistance,Front Wheeled Walker Gait Goal Contact Guard Assistance,Front Wheel Walker Gait Distance 50 Other Goals improve bed mobility, transfers and ambulation using FWW/ LRAD 150 ft SBA up/down 3 steps L rail SBA Days to Meet Goals 10 Frequency of Treatment Frequency Of Treatment Twice a Day Treatment Plan Physical Therapy Treatment Plan Bed Mobility Training,Transfer Training,Gait Training, Therapeutic Exercise,Balance Retraining,Post Op Education, Discharge Planning,Hot or Cold Pack,Neuromuscular Re-ed, Coordination Retraining,Manual Therapy Other Recommendations and Next Treatment caregiver trainin/19 @ 9 Focus am Weight Bearing Status Weight Bearing Status Weight Bear as Tolerated Allowed Weight Bearing Amount (enter % LLE WBAT or #) (%) Recommendations To Nursing Amount of Assist Needed 1 Person Assist Discharge Recommendations PT Discharge Recommendations Home with 08/04 Assist Available,Home Health,SNF Rehab,Home vs SNF Transportation Needs at Discharge Private Vehicle,Wheelchair/ Cabulance
--- NOTE | 2023-07-03 13:23 | OT.IP.EVAL ---
Current Diagnoses Unilateral primary osteoarthritis, left knee (07/02/23) Presence of unspecified artificial knee joint (07/02/23) Surgery Performed Operation Date: 07/02/23 10:45 Actual Procedures p Total Knee Arthroplasty(Left) - Fatou Escoto MD Past Medical History (Last Updated 06/27/23 @ 09:32 by Brenda Soriano, RN) YURI (acute kidney injury) (10/2021) Anxiety Cerebral aneurysm (2012) Depression Fibromyalgia History of COVID-19 (11/15/21) History of COVID-19 (07/2021) History of CVA (cerebrovascular accident) (2016) History of DVT (deep vein thrombosis) History of MRSA infection (2015) HTN (hypertension) Hypotension (10/2021) Lupus Mini stroke (2017) NSTEMI (non-ST elevated myocardial infarction) (10/2021) Panic attacks Positive blood cultures (10/2021) PTSD (post-traumatic stress disorder) Shaw-Maurizio syndrome Thrombocytopenia (2021) TIA (transient ischemic attack) Uveitis Surgical History (Last Updated 06/27/23 @ 09:32 by Brenda Soriano RN) H/O left wrist surgery (~2015) History of arthroscopy of both knees History of hysterectomy History of incision and drainage (2015) History of total right hip arthroplasty Hx of bilateral cataract extraction Hx of cholecystectomy (09/2019) Hx of eye surgery (07/2019) Hx of tonsillectomy S/P coil embolization of cerebral aneurysm (11/15/12) Occupational Therapy Inpatient Evaluation/Re-Eval M1 PT/OT-IP Prior Functional Status Start: 07/03/23 15:50 Freq: NEEDED Status: Active Protocol: Document 07/03/23 13:23 [facility] (Rec: 07/03/23 16:10 [facility] [id number]) Medical Review Prior Functional Status Medical History Reviewed Yes Communication able to make needs known; with slight confusion Mobility and Gait pt stated that she is modified independent with bed mobility but daughter provided assist with transfers and ambulation using either a 4WW or SPC depending on pt's pain level. Assistance provided by daughter also varies depending on pt's pain level. pt stated that she is limited with ambulation due to pain. Activities of Daily Living and IADL's Pt's daughter assist her as needed. Prior Functional Level (Other details) pt has h/o R SCOT 2021 and plans to have R TKA after she heals from her current L TKA per pt Social History Household Members family,children Living Arrangements House Number of Floors (Floors) Two Floors Number of Stairs To Enter/Railing? pt stays on the main level of the house has 3 steps L rail ascending to enter the house Home Environment Standard Height Toilet,Tub/ Shower Home Equipment Four Wheel Walker,Straight Cane,Shower Seat with Backrest ,Hand Held Shower Additional Social History Comment pt's daughter is her caregiver ; pt also lives with her TEDDY and grandson. M2 OT-IP Current Condition Start: 07/03/23 15:50 Freq: Status: Active Protocol: Document 07/03/23 13:23 [facility] (Rec: 07/03/23 16:10 [facility] [id number]) Occupational Therapy Current Condition Current Condition Evaluation Date 07/03/23 Treatment Diagnosis S/P L TKA Diagnosis Onset Date 07/02/23 M3 OT- IP Subjective and Pain Start: 07/03/23 15:50 Freq: Status: Active Protocol: Document 07/03/23 13:23 [facility] (Rec: 07/03/23 16:10 [facility] [id number]) OT- Subjective Occupational Therapy Visit Type Type Initial Evaluation Visit Start Time 13:23 Visit Stop Time 14:38 Total Visit Minutes 35 Notes Pt seen for split treatment from [id number], and [id number]. Occupational Therapy Visit Comments Patient Comments Pt wanting to get back to bed. Pt's daughter in the room for caregiver training. Patient/Caregiver Goals To go home. OT Pain Assessment Pain When Pain Assessed During Mobility Pain Present Pain Present Pain Reported M4 OT- IP ADL's Start: 07/03/23 15:50 Freq: Status: Active Protocol: Document 07/03/23 13:23 [facility] (Rec: 07/03/23 16:10 [facility] [id number]) OT [id number]-[id number] General Evaluation Self-Feeding Ability Independent OT ADL-Grooming Comments OT Grooming Comments Pt states did earlier. OT ADL-Oral Care Comments Oral Care Comments Pt states did earlier. OT ADL-Dressing Comments OT Dressing Comments Educated pt to ainsley her LLE first and take it out last. Able to show pt LB dressing equipment and that she would benefit form getting them or just have her daughter assist her. OT ADL-Toileting Comments OT Toileting Comments Pt states to wear brief and also suggested pt will benefit from getting a BSC to increase ease to get up and down and can be used next to her bed as well. OT ADL-Bathing Comments OT Bathing Comments Not performed. At this time due to pt not able to complete steps and that pt also has a bad right knee that she would benefit from a tub bench at home to use. M5 OT- IP IADL's Start: 07/03/23 15:50 Freq: Status: Active Protocol: Document 07/03/23 13:23 [facility] (Rec: 07/03/23 16:10 [facility] [id number]) OT-Instrumental Activities of Daily Living Deficits IADL Deficits Identified Deficits Home Safety Awareness Awareness of Need for Assistance at Home Good Awareness Home Safety Comments Pt a little groggy and forgetful, but her daughter will be at home to assist with her needs. Medication Management Medication Management Caregiver Administers Money Management Money Management Caregiver Provides Assistance Meal Preparation Meal Preparation Caregiver Provides Assist Manager Family Manager Family Caregiver Provides Assist M6 OT- IP Functional Cognition Start: 07/03/23 15:50 Freq: Status: Active Protocol: Document 07/03/23 13:23 [facility] (Rec: 07/03/23 16:10 [facility] [id number]) Cognitive Factors Limiting Selfcare Function Cognitive Ability Level of Alertness Alert Patient Orientation Name,Place,Situation Attention Span Ability Capable of Focused Attention, Capable of Sustained Attention Ability to Follow Commands Able to Follow One Step Commands with Increased Time, Able to Follow One Step Commands with Repetition Cognitive Comments Cognitive Assessment Comments Pt a little forgetful and needing reminders from her daughter for FWW safety and to push up from surfaces versus grab the FWW to stand. OT- Vision and Hearing OT- Vision Assessment Visual Acuity Glasses All The Time M7 OT- IP Mobility and Balance Start: 07/03/23 15:50 Freq: Status: Active Protocol: Document 07/03/23 13:23 [facility] (Rec: 07/03/23 16:10 [facility] [id number]) OT- Bed Mobility Assessment Sit to Supine Sit to Supine Assist Minimal Assistance Scooting Scooting Up and Down in Bed Standby Assistance OT-Transfer Assessment Sit to and From Stand Sit to and from Stand Contact Guard Assistance, Minimal Assistance Transfers Transfer Ability MIN Assistance Technique Transfer Destination Bed,Wheelchair Transfer Technique Stand Step Pivot Devices Transfer Assistive Devices Gait Belt,Front Wheeled Walker Comments Mobility Comments Pt's daughter able to safely assist pt to stand from the WC and transfer to the bed. Encouraged pt not to use the Purewick but rather get up at least the BSC. OT- Balance Assessment Sitting Balance and Reactions Static Sitting Balance Ability Good Dynamic Sitting Balance Ability Good Standing Balance and Reactions Static Standing Balance Ability Fair Dynamic Standing Balance Ability Fair M8 OT- IP Objective Assessments Start: 07/03/23 15:50 Freq: Status: Active Protocol: Document 07/03/23 13:23 [facility] (Rec: 07/03/23 16:10 [facility] [id number]) OT Gross Range of Motion Upper Extremity Range of Motion Assessment Within Functional Limits OT Strength Upper Extremity Strength Assessment Within Functional Limits M9 OT- IP Assessment and Plan Start: 07/03/23 15:50 Freq: Status: Active Protocol: Document 07/03/23 13:23 [facility] (Rec: 07/03/23 16:10 [facility] [id number]) OT Summary Assessment and Plan Potential Rehabilitation Potential Excellent Analytic Complexity at Evaluation Low Summary OT Impairments Pain,Balance,Functional Cognition,Functional Mobility, Dressing,Toileting,Bathing, Toilet Transfers,Shower Transfers Progress Towards Goals Progressing Toward Goals,Slow Progress due to Pain Assessment Summary Pt low complexity and main barriers are steps, pain, and needing assist for ADl and mobility needs. Pt's daughter has participated in caregiver training for ADL needs and suggested best for pt to get BSC, LB dressing equipment, and a tub bench to use at home . Pt not able to safely negotiate step with her daughter today and hopes to go home tomorrow. Goals Dressing Goal Minimal Assistance Toileting Goal Standby Assistance Bathing Goal Minimal Assistance Toilet Transfer Goal Independent Shower Transfer Goal Standby Assistance Days to Meet Goals 2 Frequency of Treatment Frequency Of Treatment Once a Day Treatment Plan OT Treatment Plan ADL Training,Functional Mobility,Patient/Family Education,Discharge Planning Discharge Recommendations OT Discharge Recommendations Home with 24/ Assist Available,Home Health, Outpatient PT Other Discharge Recommendations HH versus outpt PT pending how pt does on the steps. Home Equipment Needs BSC, LB dressing equipment, tub bench Transportation Needs at Discharge Private Vehicle
--- NOTE | 2023-07-03 14:06 | PC.NURSE ---
Day shift: Shun-vac removed at approx 1330. Pt tolerated well.
[2023-07-03 19:00] VITALS: BP 99/42; PULSE 61; RESP 20; TEMP 35.8; O2SAT 100
[2023-07-03] MEDS: OXYCODONE IR 10 MG TABLET PO (19:34)
[2023-07-03] MEDS: ATORVASTATIN 20 MG TABLET PO (20:17)
[2023-07-03] MEDS: GABAPENTIN 300 MG CAPSULE PO (20:17)
[2023-07-03 20:18] VITALS: BP 99/42; PULSE 61
[2023-07-03] MEDS: SODIUM CHLORIDE 0.9% FLUSH 10 ML IV (20:18)
[2023-07-03] MEDS: MELATONIN 3 MG TABLET 9 MG PO (21:21)
--- NOTE | 2023-07-03 21:53 | PC.NURSE ---
Patient is alert and oriented. Breath sounds CTA with RA sat of 100%. HRR but still hypotensive w/BP of 99/42 so Metoprolol held again this evening; is asymptomatic. Denied nausea. BT present and is passing flatus. Is voiding on toilet/BSC and denied dysuria. Is able to assist with repositioning but still having difficulty turning so staff assist q2h. PHILIPPE dressing CDI and functioning; is wrapped with heydi. Hemovac site dressing intact with serosanguinous drainage but no leakage. CMS intact except is still not able to lift her leg off bed more than 1. Stated her pain is still an aching/throbbing pain and rates 7-9/10. Has been medicated with 10mg of oxycodone at 1933 and then with 4mg of dilaudid at 2118 as pain initially improved and then became worse again; ice packs applied. Bilateral calf SCD's on when in bed. Fall risk score is high and bed alarm is activated.
[2023-07-03 23:14] VITALS: BP 135/51; PULSE 65; RESP 20; TEMP 36.2; O2SAT 100
[2023-07-04] MEDS: HYDROMORPHONE 4 MG TABLET PO ×4 (04:40→13:58)
[2023-07-04 04:53] VITALS: BP 124/55; PULSE 68; RESP 20; TEMP 35.9; O2SAT 97
[2023-07-04 07:00] VITALS: BP 150/69; PULSE 74; RESP 16; TEMP 36.1; O2SAT 97
--- NOTE | 2023-07-04 07:45 | P.PN_ITS ---
Subjective Subjective Interval history: Pt ist still having left knee pain. Controlled with dilaudid. Transitioned to oxycodone last night, but did not control the pain. Worked with PT yesterday. Was able to walk to the bathroom and down the corey. Still needs assistance walking up stairs. Will continue with PT today. Exam Vital Signs (past 8 hours): - 07/04/23 04:53 Temperature 96.7 F L Pulse Rate 68 Respiratory Rate 20 Blood Pressure 124/55 L Pulse Oximetry 97 Oxygen Flow Rate 0 Oxygen Delivery Method Room Air Oxygen Flow Rate 0 Extrem Other: 4/5 PF, 4/5 EHL and DF; hip flexors, quadriceps, hamstrings not tested d/t pain. Sensation to light touch intact throughout LLE. Calf soft and compressible. JEANNIE wrap over PHILIPPE CDI, PHILIPPE functioning. Objective Labs 07/03/23 06:40 [facility] Medical History (Updated 06/27/23 @ 09:32 by Brenda Soriano RN) Uveitis Positive blood cultures (10/2021) Hypotension (10/2021) History of DVT (deep vein thrombosis) History of CVA (cerebrovascular accident) (2016) History of COVID-19 (07/2021) Thrombocytopenia (2021) YURI (acute kidney injury) (10/2021) History of COVID-19 (11/15/21) NSTEMI (non-ST elevated myocardial infarction) (10/2021) Shaw-Maurizio syndrome Lupus TIA (transient ischemic attack) Cerebral aneurysm (2012) History of MRSA infection (2015) PTSD (post-traumatic stress disorder) Depression Anxiety HTN (hypertension) Fibromyalgia Mini stroke (2017) Panic attacks Surgical History (Updated 07/03/23 @ 07:30 by Yohana Ridley PA-C) History of total right hip arthroplasty History of incision and drainage (2015) Hx of tonsillectomy Hx of eye surgery (07/2019) Hx of bilateral cataract extraction H/O left wrist surgery (~2015) History of arthroscopy of both knees History of hysterectomy S/P coil embolization of cerebral aneurysm (11/15/12) Hx of cholecystectomy (09/2019) Family History Father Leukemia Mother Ovarian cancer Social History household members: family and children Smoking Status: Former smoker alcohol intake: current Assessment & Plan Post-op Assessment and plan (1) Total knee replacement status: Assessment and Plan narrative: Work w/ PT, continue multimodal pain control. Hopeful d/c home w/ daughter later today if she passes PT eval and pain is well-managed. Postoperative Procedures: Procedures Operation Date: 07/02/23 10:45 Actual Procedure Side Surgeon p Total Knee Arthroplasty Left Fatou Escoto MD
[2023-07-04] MEDS: CITALOPRAM 10 MG TABLET 20 MG PO (08:13)
[2023-07-04] MEDS: polyethylene glycoL 3350 17 GM POWD.PACK PO (08:13)
[2023-07-04] MEDS: SPIRONOLACTONE 25 MG TABLET PO (08:13)
[2023-07-04] MEDS: ASPIRIN EC 81 MG TABLET PO (08:13)
[2023-07-04] MEDS: DOCUSATE 100 MG CAPSULE PO (08:13)
[2023-07-04] MEDS: GABAPENTIN 100 MG CAPSULE PO ×2 (08:16→11:37)
[2023-07-04] MEDS: SODIUM CHLORIDE 0.9% FLUSH 10 ML IV (08:16)
[2023-07-04] MEDS: prednisoLONE OPHTH SUSP 1 DROPS EYE-BOTH (08:16)
--- NOTE | 2023-07-04 10:30 | PT.IPTN ---
Current Diagnoses Unilateral primary osteoarthritis, left knee (07/02/23) Surgery Performed Operation Date: 07/02/23 10:45 Actual Procedures p Total Knee Arthroplasty(Left) - Fatou Escoto MD Physical Therapy Treatment Note M2 PT-IP Current Condition Start: 07/03/23 13:00 Freq: NEEDED Status: Active Protocol: Document 07/03/23 09:40 AB (Rec: 07/03/23 13:19 AB [id number]) Physical Therapy Current Condition Current Condition Evaluation Date 07/03/23 Treatment Diagnosis s/p L TKA; difficulty in walking Onset Date 07/02/23 M3 PT-IP Subjective Start: 07/03/23 13:00 Freq: NEEDED Status: Active Protocol: Document 07/04/23 11:05 TS (Rec: 07/04/23 11:23 TS [id number]) Subjective Physical Therapy Visit Type Type Treatment Note Visit Start Time 10:30 Visit Stop Time 11:00 Total Visit Minutes 30 Notes Daughter present for caregiver training. Number of CIGAR PATCHER Visits 1 Physical Therapy Visit Comments Patient Comments Pt found resting in bed, reports pain is 9/10 in L knee , agreeable to PT. Therapy Pain Assessment Pain When Pain Assessed During Mobility Pain Present Pain Present Pain Reported Location Left Knee Intensity 9 Scale Used Numeric (0 - 10) Description With Movement Pain Behaviors Calling Out,Facial Grimacing, Guarding,Holding Area,Moaning, Restlessness,Wincing Pain Management Techniques Apply Cold,Modification of Treatment,Re-positioning, Timing of Activity with Medications M4 PT-IP Mobility and Gait Start: 07/03/23 13:00 Freq: NEEDED Status: Active Protocol: Document 07/04/23 11:05 TS (Rec: 07/04/23 11:23 TS [id number]) PT-Bed Mobility Assessment Supine to Sit Supine to Sit Moderate Assistance Sit to Supine Sit to Supine Minimal Assistance,1 Person Assistance Scooting Scooting to Edge of Bed Contact Guard Assistance PT-Transfer Assessment Sit to and From Stand Sit to and from Stand Minimal Assistance,1 Person Assistance,Use of Upper Extremities Equipment Transfer Assistive Device Gait Belt,Front Wheeled Walker Orthotic/Prosthetic Devices or Brace: No Comments Mobility Comments Supine to sit ModA from daughter with handheld assist for uprighting trunk, pt cued for BUE support on bed. She scooted to EOB CGA with use of bed rail, cues provided for scooting hips. Daughter donned gait belt prior to sit to stand. Sit to stand with FWW Saumya with use of FWW, pt demonstrates good carryover of sequencing. She ambulated ~40 'CGA with slow step to antalgic gait, reports some shakiness in LLE, required rest break into w/c. She performed steps x3 Saumya with single rail and handheld assist with daughter, cues were provided step sequencing. Pt was brought back to room in w/c, sit to supine into bed Saumya for LLE into bed, pt repositioned trunk. She was left in bed with call light nearby, all needs met, daughter in room, RN notified. Gait Assessment Gait Gait Assistance Required: Contact Guard Assist,1 Person Assist Distance (Feet) 40 Able to Maintain Weight Bearing Status Yes During Gait Assistive Devices Assistive Device Gait Belt,Front Wheeled Walker Orthotic/Prosthetic Devices or Brace: No Gait Deviations General Gait Pattern Antalgic,Decreased Stride Length,Decreased Feet Clearance,Step-to Gait Factors Limiting Gait Function Factors Limiting Gait Function Decreased Activity Tolerance, Decreased Strength,Limited Range of Motion,Pain,Poor Balance,Poor Safety Awareness Comments Gait Comments See mobility comments Stair Climbing Assessment Evaluation Level of Assist On Stairs Minimal Assistance,1 Person Assistance Devices Stair Climbing Assistive Devices Left Railing Technique/Endurance Stair Climbing Direction Ascend and Descend Stair Climbing Technique Step to Step Number of Steps Climbed 3 Stair Climbing Set # Repetitions (reps) 1 Comments Stair Climbing Comments See mobility comments PT-Balance Assessment Sitting Balance and Reactions Static Sitting Balance Ability Good Dynamic Sitting Balance Ability Good Standing Balance and Reactions Static Standing Balance Ability Fair Dynamic Standing Balance Ability Fair Device Used FWW M5 PT-IP Objective Assessments Start: 07/03/23 13:00 Freq: NEEDED Status: Active Protocol: Document 07/03/23 09:40 AB (Rec: 07/03/23 13:19 AB [id number]) Orientation Orientation/Cognition Level of Alertness Alert Orientation Name,Place,Situation Language Function Ability No Deficits Noted Safety Awareness Decreased Safety Awareness Memory Description Short Term Impaired Gross Range of Motion Lower Extremity ROM Assessment Left Impaired Impairments L knee flexion: ~ 50 deg L knee extension: ~ 20 degrees less to 0 Strength Lower Extremity Strength Assessment Bilaterally Impaired Comments Strength Comments RLE:4-/5 LLE: 3-/5 Coordination Assessment Gross Coordination Gross Coordination WNL Sensation Assessment Sensation Gross Sensation WNL Muscle Tone Muscle Tone WNL Yes M6 PT-IP Treatment Start: 07/03/23 13:00 Freq: NEEDED Status: Active Protocol: Document 07/04/23 11:05 TS (Rec: 07/04/23 11:23 TS [id number]) Physical Therapy Treatment Education Education Provided Post-Op Packet,Safety Other Treatments Other Treatment Performed Educated pt on the benefits of post-op ex. M7 PT-IP Assessment and Plan Start: 07/03/23 13:00 Freq: NEEDED Status: Active Protocol: Document 07/04/23 11:05 TS (Rec: 07/04/23 11:23 TS [id number]) PT Summary Assessment and Plan Potential Rehabilitation Potential Good Summary Impairments Pain,ROM,Strength,Balance, Coordination,Sensation,Tone, Cognition,Bed Mobility, Transfers,Gait,Activity Tolerance Progress Towards Goals Progressing Toward Goals Assessment Summary Fany is making good progress with her mobility. She continues to require ModA for supine to sit with handheld assist for uprighting trunk. She is CGA for sit to stands with FWW, she demonstrates good carryover from previous sessions. She progressed her gait to ~40' CGA with FWW, does report some shakiness in LLE but has no buckling or LOB. She performed stairs x3 Saumya with use of handrail and handheld assist from daughter, she demonstrated some carryover of sequencing from previous session. PT is recommending return home with 24/7 assist with HHPT and outpatient PT when appropriate. Goals Bed Mobility Goal Standby Assistance Transfer Goal Contact Guard Assistance,Front Wheeled Walker Gait Goal Contact Guard Assistance,Front Wheel Walker Gait Distance 50 Other Goals improve bed mobility, transfers and ambulation using FWW/ LRAD 150 ft SBA up/down 3 steps L rail SBA Days to Meet Goals 10 Frequency of Treatment Frequency Of Treatment Twice a Day Treatment Plan Physical Therapy Treatment Plan Bed Mobility Training,Transfer Training,Gait Training, Therapeutic Exercise,Balance Retraining,Post Op Education, Discharge Planning,Hot or Cold Pack,Neuromuscular Re-ed, Coordination Retraining,Manual Therapy Weight Bearing Status Weight Bearing Status Weight Bear as Tolerated Allowed Weight Bearing Amount (enter % LLE WBAT or #) (%) Recommendations To Nursing Amount of Assist Needed 1 Person Assist Discharge Recommendations PT Discharge Recommendations Home with 24/7 Assist Available,Home Health, Outpatient PT Transportation Needs at Discharge Private Vehicle,Wheelchair/ Cabulance
--- NOTE | 2023-07-04 13:30 | OT.IP.TRT ---
Current Diagnoses Unilateral primary osteoarthritis, left knee (07/02/23) Surgery Performed Operation Date: 07/02/23 10:45 Actual Procedures p Total Knee Arthroplasty(Left) - Fatou Escoto MD Occupational Therapy Treatment Note M2 OT-IP Current Condition Start: 07/03/23 15:50 Freq: Status: Discharge Protocol: Document 07/03/23 13:23 [facility] (Rec: 07/03/23 16:10 [facility] [id number]) Occupational Therapy Current Condition Current Condition Evaluation Date 07/03/23 Treatment Diagnosis S/P L TKA Diagnosis Onset Date 07/02/23 M3 OT- IP Subjective and Pain Start: 07/03/23 15:50 Freq: Status: Discharge Protocol: Document 07/04/23 12:45 [facility] (Rec: 07/04/23 15:34 [facility] [id number]) OT- Subjective Occupational Therapy Visit Type Type Treatment Note Visit Start Time 12:45 Visit Stop Time 13:30 Total Visit Minutes 45 Occupational Therapy Visit Comments Patient Comments Pt wanting to shower and use the bathroom. Patient/Caregiver Goals To go home. OT Pain Assessment Pain When Pain Assessed At Rest Pain Present Pain Present Pain Reported Location Left Knee Intensity 5 Scale Used Numeric (0 - 10) M4 OT- IP ADL's Start: 07/03/23 15:50 Freq: Status: Discharge Protocol: Document 07/04/23 12:45 [facility] (Rec: 07/04/23 15:34 [facility] [id number]) OT ADL-Grooming Comments OT Grooming Comments Not performed. OT ADL-Oral Care Comments Oral Care Comments Not performed. OT ADL-Dressing General Eval Upper Body Dressing Ability Independent Lower Body Dressing Ability Moderate Assistance Comments OT Dressing Comments Assist to help get clothing over her feet and up over her hips. Educated pt to hold onto a surface with one hand while assist to pull up clothing with the other hand. OT ADL-Toileting Comments OT Toileting Comments Pt needing assist for brief management needs. OT ADL-Bathing Bathing Type Bathing Type Shower General Evaluation Bathing Ability Moderate Assistance,Maximal Assistance Areas Needing Assistance Wash/Dry Back,Wash/Dry Perineal Area,Wash/Dry Lower Extremities Comments OT Bathing Comments Pt jose a benefit from her daughter to assist with shower needs. M5 OT- IP IADL's Start: 07/03/23 15:50 Freq: Status: Discharge Protocol: Document 07/03/23 13:23 [facility] (Rec: 07/03/23 16:10 [facility] [id number]) OT-Instrumental Activities of Daily Living Deficits IADL Deficits Identified Deficits Home Safety Awareness Awareness of Need for Assistance at Home Good Awareness Home Safety Comments Pt a little groggy and forgetful, but her daughter will be at home to assist with her needs. Medication Management Medication Management Caregiver Administers Money Management Money Management Caregiver Provides Assistance Meal Preparation Meal Preparation Caregiver Provides Assist Flight Test Data Acquisition Technician Flight Test Data Acquisition Technician Caregiver Provides Assist M6 OT- IP Functional Cognition Start: 07/03/23 15:50 Freq: Status: Discharge Protocol: Document 07/04/23 12:45 [facility] (Rec: 07/04/23 15:34 [facility] [id number]) Cognitive Factors Limiting Selfcare Function Cognitive Comments Cognitive Assessment Comments Pt is a bit forgetful and needing safety cues for the FWW. M7 OT- IP Mobility and Balance Start: 07/03/23 15:50 Freq: Status: Discharge Protocol: Document 07/04/23 12:45 [facility] (Rec: 07/04/23 15:34 [facility] [id number]) OT-Transfer Assessment Sit to and From Stand Sit to and from Stand Contact Guard Assistance, Minimal Assistance,Moderate Assistance Transfers Transfer Ability Standby Assistance,Contact Guard Assistance Technique Transfer Destination Bed,Shower Stall,Toilet Transfer Technique Stand Step Pivot Devices Transfer Assistive Devices Gait Belt,Front Wheeled Walker Comments Mobility Comments MODA to stand from lower surfaces or heavy use of the grab bar. HA to help step over the threshold of the shower. OT- Balance Assessment Sitting Balance and Reactions Static Sitting Balance Ability Good Dynamic Sitting Balance Ability Good Standing Balance and Reactions Static Standing Balance Ability Fair Dynamic Standing Balance Ability Fair M8 OT- IP Objective Assessments Start: 07/03/23 15:50 Freq: Status: Discharge Protocol: Document 07/03/23 13:23 [facility] (Rec: 07/03/23 16:10 [facility] [id number]) OT Gross Range of Motion Upper Extremity Range of Motion Assessment Within Functional Limits OT Strength Upper Extremity Strength Assessment Within Functional Limits M9 OT- IP Assessment and Plan Start: 07/03/23 15:50 Freq: Status: Discharge Protocol: Document 07/04/23 12:45 [facility] (Rec: 07/04/23 15:34 [facility] [id number]) OT Summary Assessment and Plan Potential Rehabilitation Potential Excellent Analytic Complexity at Evaluation Low Summary OT Impairments Pain,Balance,Functional Cognition,Functional Mobility, Dressing,Toileting,Bathing, Toilet Transfers,Shower Transfers Progress Towards Goals Progressing Toward Goals Assessment Summary Pt's daughter able to assist pt for all ADl and mobility needs with good safety. Pt to go home today. Goals Dressing Goal Minimal Assistance Toileting Goal Standby Assistance Bathing Goal Minimal Assistance Toilet Transfer Goal Independent Shower Transfer Goal Standby Assistance Days to Meet Goals 1 Frequency of Treatment Frequency Of Treatment Once a Day Treatment Plan OT Treatment Plan ADL Training,Functional Mobility,Patient/Family Education,Discharge Planning Discharge Recommendations OT Discharge Recommendations Home with Assistance, Outpatient PT Home Equipment Needs BSC, LB dressing equipment, tub bench Transportation Needs at Discharge Private Vehicle
--- NOTE | 2023-07-04 14:20 | PC.NURSE ---
Day shift: Paperwork signed and all questions answered. Pt's Daughter in room for teachings also. scripts sent Pt's pharmacy electronic. Pt has all personal belongings. PHILIPPE patent and functioning WNL. Pt had shower today and wants to leave JEANNIE wrap off at this time. CMS remains intact as well as PPP. Left unit via WC at approx 1430. PCT Diane helped Pt to car. Daughter is driving them home. They have a [address] Medicated for pain per NOV at approx 1400.
--- NOTE | 2023-07-04 16:58 | PM.DS.1 ---
History of Present Illness History of Present Illness Date Patient Seen: 07/04/23 Time Patient Seen: 14:15 Chief complaint: OPB Narrative: see progress note Discharge Providers Provider Discharge Date: 07/04/23 Consults: 06/27/23 09:46 Consult to Anesthesiology Routine Comment: Consulting Provider: Anesthesiologist Reason for consultation: Surgeon requested re: Cardiac 07/02/23 08:04 Consult to Anesthesiology Routine Comment: Consulting Provider: Anesthesiologist Reason for consultation: Regional block for post operative pain control 07/02/23 15:15 Consult to Discharge Planning Routine Comment: Consult to Occupational Therapy Evaluate & Treat Comment: Physician Instructions: Evaluate and treat Consult to Physical Therapy Evaluate & Treat Comment: Physician Instructions: postop TKA protocol Discharge provider: Sonny Rizvi PA-C Summary Hospital Course Discharge Diagnosis: Severe left knee OA Hospital Course: Left total knee arthroplasty Same procedure as scheduled: Yes Indications: The patient has had progressively worsening left knee pain with radiographic changes consistent with arthritis. Non-operative management has failed and the patient has requested total knee replacement. The risks, benefits and alternatives to surgery were discussed with the patient prior to proceeding. Risks discussed included, but were not limited to, failure to relieve pain, stiffness, infection, nerve damage, deep venous thrombosis, pulmonary embolism, stroke, coma, heart attack, permanent paralysis and , as well as the potential need for eventual revision of the prosthetic. Surgeon: Fatou Escoto Branch Maker: Sonny Rizvi Anesthesia Type: General Operative Notes Findings: Severe left knee oa, soft bone, adequate stability Closure Type: primary Specimen(s): none sent Prosthetic devices, grafts, tissues, transplants, or devices: Escoto and nephew journey BCS 2 size 7 femur, size 6 tibia, size 9 tibia poly, 35 x 7-1/2 mm patella Estimated Blood Loss (mL): 250 Blood products transfused: none Tourniquet time (min): 92 DC home today Exam Vital Signs (past 8 hours): Oxygen Delivery Method Room Air Oxygen Flow Rate 0 Objective Labs 07/03/23 06:40 [facility] Medical History (Updated 06/27/23 @ 09:32 by Brenda Soriano RN) Uveitis Positive blood cultures (10/2021) Hypotension (10/2021) History of DVT (deep vein thrombosis) History of CVA (cerebrovascular accident) (2016) History of COVID-19 (07/2021) Thrombocytopenia (2021) YURI (acute kidney injury) (10/2021) History of COVID-19 (11/15/21) NSTEMI (non-ST elevated myocardial infarction) (10/2021) Shaw-Maurizio syndrome Lupus TIA (transient ischemic attack) Cerebral aneurysm (2012) History of MRSA infection (2015) PTSD (post-traumatic stress disorder) Depression Anxiety HTN (hypertension) Fibromyalgia Mini stroke (2017) Panic attacks Surgical History (Updated 07/03/23 @ 07:30 by Yohana Ridley PA-C) History of total right hip arthroplasty History of incision and drainage (2015) Hx of tonsillectomy Hx of eye surgery (07/2019) Hx of bilateral cataract extraction H/O left wrist surgery (~2015) History of arthroscopy of both knees History of hysterectomy S/P coil embolization of cerebral aneurysm (11/15/12) Hx of cholecystectomy (09/2019) Family History Father Leukemia Mother Ovarian cancer Social History household members: family and children Smoking Status: Former smoker alcohol intake: current Discharge Assessment & Plan Assessment and Plan Assessment: Left knee osteoarthritis, s/p left total knee arthroplasty Plan of Treatment: Work w/ PT, continue multimodal pain control. Hopeful d/c home w/ daughter later today if she passes PT eval and pain is well-managed. Pt has h/o DVT and says it was many years ago; she was 28 yo and taking control. She is not on estrogen supplementation currently and has no other risk factors other than recent surgery; ASA BID will likely be adequate for VTE prophylaxis. Discharge Plan Discharge Plan Patient Disposition: Home Discharge orders & Medications Discharge Orders: Discharge (Order); Ordered 07/04/23 Ordered By: Sonny Rizvi Prescriptions: New aspirin 81 mg Tablet,Delayed Release (Dr/Ec) 81 mg PO BID Qty: 90 0RF docusate sodium 100 mg Capsule 100 mg PO BID PRN (Reason: constipation) Qty: 60 1RF aspirin 81 mg tablet,chewable 81 mg PO BID Qty: 90 0RF docusate sodium [Colace] 100 mg capsule 100 mg PO BID PRN (Reason: constipation) Qty: 60 1RF hydromorphone 2 mg Tablet 2 mg PO Q6H PRN (Reason: Pain, Moderate (4-6)) Qty: 10 0RF Rx Instructions: Use 1 tablet every 6 hours as needed for breakthrough pain oxycodone 10 mg Tablet 10 mg PO Q3H PRN (Reason: Pain, Severe (7-10)) Qty: 45 0RF Continued prednisolone acetate 1 % Drops,Suspension 1 drp EYE-BOTH TID ibuprofen 200 mg Capsule 600 mg PO Q6H PRN (Reason: Pain) hydroxyzine HCl 50 mg Tablet 50 mg PO TID PRN (Reason: Anxiety) gabapentin 100 mg Capsule 100 mg PO SEEINSTR Rx Instructions: 1 tab qam, qnoon, 3 tabs at bedtime albuterol sulfate 90 mcg/actuation Hfa Aerosol Inhaler 2 puff INHALATION Q4-6H PRN (Reason: Shortness Of Breath) atorvastatin 20 mg Tablet 20 mg PO BEDTIME metoprolol succinate 50 mg Tablet Extended Release 24 Hr 50 mg PO BEDTIME spironolactone 25 mg Tablet 25 mg PO DAILY citalopram 20 mg Tablet 20 mg PO DAILY Discontinued oxycodone 5 mg Tablet 5 mg PO Q4-6H PRN (Reason: Pain, Moderate (4-6)) Qty: 40 0RF Rx Instructions: 1-2 tabs po every 4-6 hours as needed for severe pain. exempt. post op pain. Follow up/Referrals: Fatou Escoto MD [Physician] - As previously scheduled (Follow up with Parth Burr PA-C, on 07/16/2023 @ 2:[address] [facility] office in [place].) Diet/Activity/Treatments Diet: Diet as Tolerated Activity: Walk frequently! Cold/Heat Therapy: Ice to knee as needed for pain. Skin/Wound/Dressing Care Report to your healthcare provider any signs of infection, such as:: chills, fever, night sweats, unusual drainage and unusual redness Dressing: May remove JEANNIE wrap and shower on 07/05/2023. Leave PHILIPPE dressing in place until follow up in office. In 5-7 days, the battery will , at which point you can cut off the battery pack and most of the tubing; leave the dressing in place. No bathing or otherwise soaking incision. If dressing becomes saturated inside, call the office. Visit Report/Discharge Packet Instructions: DI for Knee Replacement, How to Prevent Falls, DI for Prescription Opioid Use Stand Alone Forms: Patient Portal/API, Surgery Discharge Discharge Data Attending Provider: Fatou Escoto
== END 2023-07-04 14:24 | disposition home or self-care (01) ==
LOC: OR 09:29 → AC 09:29
PROVIDERS: Referring Provider Orthopaedic Surgery; Visit Provider Orthopaedic Surgery
PROC: 0SRD0JZ Replacement of Left Knee Joint with Synthetic Substitute, Open Approach (ICD-10-PCS; CPT 27447; principal; 2023-07-02 10:45)
DX: M17.12 Unilateral primary osteoarthritis, left knee (principal); M25.762 Osteophyte, left knee
CPT/HCPCS: 27447; 36415; 73560; 82962; 85014; 85018; 97116; 97162; 97165; 97530; 97535; C1776; C9290; J0171; J1100; J1170; J2405; J2704